=== PATIENT | male | born 1940 | race Caucasian/White ===

== ENCOUNTER → 2016-12-01 | Outpatient (CLI) | payer BC ==
[~2016-12-01] MED LIST: ACET-1138 PO; ACET-1256 PO; ASPEC81 PO; CLB200 PO; DUTA0.5C PO; FLM4 PO; HRBLS PO; LOSA50TA54 PO; NITR-5 PO; ONDA8TAB6 PO; OXYC-57 PO; OXYSR10 PO; PHEN-775 PO; RXC5 PO; SIMV20TA2 PO; [UNRECOGNIZED DRUG - OTHER] PO; [UNRECOGNIZED DRUG - OTHER] PO; [UNRECOGNIZED DRUG - OTHER] PO; antibiotic
[2016-12-01 16:42] LABS: BLOOD UREA NITROGEN 22 mg/dl (7-18); BUN/CREATININE RATIO 30.7 (10-20); CALCIUM 9.3 mg/dl (8.5-10.1); CARBON DIOXIDE 27 mmol/L (21-32); CHLORIDE 107 mmol/L (98-107); CREATININE 0.73 mg/dl (0.60-1.40); GLUCOSE 96 mg/dl (70-99); POTASSIUM 3.8 mmol/L (3.5-5.1); SODIUM 142 mmol/L (136-145)
== END | disposition home or self-care (01) ==
LOC: C.LABBFT 11:36
PROVIDERS: ATTEND Internal Medicine
DX: I10 Essential (primary) hypertension (principal)

== ENCOUNTER 2016-12-04 09:19 | Inpatient (IN) | payer BC, OTHER ==
[2016-10-27 13:02] VITALS: BMI 28.0
--- NOTE | 2016-10-27 13:39 | PAT Medication Instructions ---
Service Date Oct 27, 2016. Current Home Medication List Herbals (Herbals), 1 DOSE PO BLANK Herbals (Herbals), 5 TAB PO HS Simvastatin (Zocor), 20 MG PO HS Tamsulosin HCl (Tamsulosin HCl), 0.4 MG PO BID [Salgesic], 1 TABS PO HS PRN for Pain Medication Instructions For Your Scheduled Surgery - Check with surgeon for instructions: [Salgesic], 1 TABS PO HS PRN for Pain - Hold the following medications 2 weeks prior to surgery: Herbals (Herbals), 1 DOSE PO BLANK Herbals (Herbals), 5 TAB PO HS - Hold the following medications the morning of surgery: Tamsulosin HCl (Tamsulosin HCl), 0.4 MG PO BID - Take the following medications as scheduled the night before surgery: Tamsulosin HCl (Tamsulosin HCl), 0.4 MG PO BID Simvastatin (Zocor), 20 MG PO HS If you have any questions please call us at [phone] (Sia Staton PA-C) or [phone] or [phone]
[2016-10-27 14:22] LABS: BASO % 0.3 %; BASO ABS # 0.03 K/uL (0-0.2); COMPLETE YES; EOS % 3.4 %; HEMATOCRIT 37.8 % (42-52); IG% 0.2 %; LYMPH % 23.6 %; LYMPH ABS # 2.06 K/uL (1.2-3.4); MEAN CELL VOLUME 87.5 fL (80-100); MEAN CORPUSCULAR HEMOGLOBIN 30.1 pg (25-34); MEAN CORPUSCULAR HGB CONC 34.4 g/dl (32-36); MONO % 11.8 %; NEUT % 60.7 %; PLATELET COUNT 253 K/uL (130-400); RED BLOOD COUNT 4.32 M/uL (4.7-6.1); WHITE BLOOD COUNT 8.72 K/uL (4.8-10.8)
[2016-10-27 14:26] LABS: ESTIMATED AVERAGE GLUCOSE 114 mg/dl; HA1C FLAG Normal (Normal)
[2016-10-27 14:39] LABS: PROTHROMBIN TIME (PATIENT) 10.5 SECONDS (9.0-12.0)
--- NOTE | 2016-10-27 15:21 | DIAGNOSTIC IMAGING REPORT ---
TWO VIEW CHEST CLINICAL HISTORY: Preoperative examination. FINDINGS: PA and lateral chest radiographs are compared to study dated 07/12/2014. The heart is mildly enlarged and there is atherosclerotic calcification of the thoracic aorta. The pulmonary vasculature is noncongested. Emphysematous change is suspected. Chronic interstitial thickening is similar to previous. No airspace consolidation or pleural effusion is identified. There is no pneumothorax. The skeletal structures are osteopenic. The bony thorax appears intact. IMPRESSION: Cardiomegaly and suspect emphysema. There is no active disease in the chest. Electronically signed by: Dennis Leiva M.D. 10/27/2016 3:20 PM
[2016-10-27 15:47] LABS: BUN/CREATININE RATIO 36.1 (10-20); CREATININE 0.75 mg/dl (0.60-1.40)
[2016-10-27 20:01] LABS: CALCIUM 9.1 mg/dl (8.5-10.1)
--- NOTE | 2016-12-03 09:28 | HISTORY & PHYSICAL EXAMINATION ---
DATE OF ADMISSION: 12/04/2016 CHIEF COMPLAINT: Right knee pain. HISTORY OF PRESENT ILLNESS: The patient is a 76-year-old gentleman with known osteoarthritis about his right knee. He had a previous left total knee arthroplasty several years ago, which has done very well. He continues to have ongoing pain and disability with the right knee and now desires to proceed with right total knee arthroplasty as well. PAST MEDICAL HISTORY: Anemia, BPH, and hyperlipidemia. PAST SURGICAL HISTORY: Left total knee as above, back surgery, and hernia repair. MEDICATIONS: Include tamsulosin HCL 0.4 mg 2 capsules daily and simvastatin 20 mg at bedtime. ALLERGIES: No known drug allergies. SOCIAL HISTORY AND REVIEW OF SYSTEMS: Noncontributory. PHYSICAL EXAMINATION: GENERAL: Well-nourished and well-developed elderly male, who appears his stated age. HEENT: Normocephalic and atraumatic. Extraocular movements intact. Oropharynx is pink and moist. NECK: Supple without adenopathy. LUNGS: Clear to auscultation bilaterally. HEART: Regular rate and rhythm. ABDOMEN: Soft, nontender, and nondistended. EXTREMITIES: The upper extremities are within normal limits. The right knee has a varus alignment. The left knee is neutrally aligned, status post his previous knee replacement. He complains primarily of medial compartment pain. His range of motion is from 0-120 degrees. X-RAYS: X-rays were reviewed. He has a varus aligned knee. He has [id number] arthritis of the medial compartment with complete loss of the joint space. ASSESSMENT: Right knee degenerative joint disease. PLAN: Risks versus benefits were discussed. Consent was obtained. The patient's primary care physician is Dr. Kearney. We will proceed with right total knee arthroplasty upon preoperative workup and medical clearance.
[~2016-12-04] VITALS: Ht 170.2 cm; Wt 83.3 kg
[2016-12-04] VITALS (8 sets, daily range): BP systolic 113–169; BP diastolic 64–92; PULSE 72–84; TEMP 36.5–36.9; O2SAT 92–98; Ht 170.2 cm; Wt 83.3 kg
[~2016-12-04 09:19] MED LIST changes: -ACET-1138 PO; -ACET-1256 PO; +ACETAMINOPHEN 500 MG TAB PO SCH; -ASPEC81 PO; +BUPIVACAINE 0.25% 30 ML VIAL ONE; +BUPIVACAINE 0.5 % 5 MG/1 ML PF 10ML VIAL ONE; +CEFAZOLIN 2000 MG/60 ML D5W 60 ML IV SCH; -CLB200 PO; +CeleBREX 200 MG CAP PO SCH; +DEXAMETHASONE 4 MG TAB PO SCH; -DUTA0.5C PO; +FAMOTIDINE 20 MG TAB PO SCH; +GABAPENTIN 300 MG CAP PO SCH; +LACTATED RINGER'S 1000ML IV SCH; +LACTATED RINGER'S 500 ML IV SCH; +METOCLOPRAMIDE HCL 10 MG TAB PO SCH; -NITR-5 PO; -ONDA8TAB6 PO; -OXYC-57 PO; -OXYSR10 PO; -PHEN-775 PO; +ROPIVACAINE 5MG/ML 30 ML 150 MG, BUPIVACAINE/EPINEPHR 0.5% MPF 30 ML, KETOROLAC TROMETH... INFIL SCH; -RXC5 PO; -[UNRECOGNIZED DRUG - OTHER] PO; -[UNRECOGNIZED DRUG - OTHER] PO; -antibiotic
[2016-12-04] MEDS ORDERED: FENTANYL CITRATE INJ 50 MCG/1 ML 2 ML VIAL ONE (10:05)
[2016-12-04] MEDS ORDERED: MIDAZOLAM HCL 1 MG/ML 2ML VIAL ONE (10:05)
--- NOTE | 2016-12-04 10:05 | History & Physical Bridge Note ---
H&P Re-Evaluation Bridge Note: I have examined the patient, reviewed the History & Physical and in the interval since the performance of the History & Physical I have noted the following changes of clinical significance: No changes noted
[2016-12-04] MEDS ORDERED: PROPOFOL IV EMULSION 10 MG/ML 20 ML VIAL IV ONE (10:07)
[2016-12-04] MEDS ORDERED: LACTATED RINGER'S 1000ML 1,000 ML IV PRN (10:24)
[2016-12-04] MEDS ORDERED: ONDANSETRON INJ 2 MG/ML 2 ML VIAL IV PRN ×2 (10:30→13:00)
[2016-12-04] MEDS ORDERED: FENTANYL CITRATE INJ 50 MCG/1 ML 2 ML VIAL IV PRN (10:30)
[2016-12-04] MEDS ORDERED: ORTHO JOINT ANESTHETIC ONE (10:35)
[2016-12-04] MEDS: TRANEXAMIC ACID INJ 1,000 MG in SODIUM CHLORIDE 0.9% 100ML 100 ML IV SCH ×2 (10:50→15:46)
[2016-12-04] MEDS ORDERED: POVIDONE-IODINE OP SOLN 30 ML BTL TOP ONE (12:13)
[2016-12-04] MEDS ORDERED: BACITRACIN 50000 UNIT VIAL IR ONE (12:13)
--- NOTE | 2016-12-04 12:16 | [facility] Post Operative Brief Note ---
Immediate Operative Summary Operative Date Dec 04, 2016. Pre-Operative Diagnosis Right knee degenerative joint disease Post-Operative Diagnosis Right knee degenerative joint disease Procedure(s) Performed Right Total Knee Arthroplasty; Cemented Surgeon Dr. Henrry Starr Supervisor Fiber Locking Surgeon(s) Pablo Spears PA-C Estimated Blood Loss 20 mL Findings severe OA Specimens A. Right Knee bone and tissue Disposition Recovery Room / PACU
[2016-12-04] MEDS ORDERED: ZOLPIDEM TARTRATE 5 MG TAB PO PRN (13:00)
[2016-12-04] MEDS ORDERED: DiphenhydrAMINE HCL 50 MG/ML VIAL IV PRN (13:00)
[2016-12-04] MEDS ORDERED: MoRPHine SULFATE 2 MG/ML CARP IV PRN (13:00)
[2016-12-04] MEDS ORDERED: BISACODYL 10 MG SUPP PR PRN (13:00)
[2016-12-04] MEDS ORDERED: MAGNESIUM HYDROXIDE SUSP 30 ML UDC PO PRN (13:00)
[2016-12-04] MEDS ORDERED: ALUMINUM/MAGNESIUM/SIMETH (MAALOX MAX) 30 ML UDC PO PRN (13:00)
--- NOTE | 2016-12-04 13:25 | DIAGNOSTIC IMAGING REPORT ---
TWO VIEWS RIGHT KNEE CLINICAL HISTORY: Postoperative examination. FINDINGS: AP and crosstable lateral portable views of the right knee are obtained. A right knee arthroplasty is in near anatomic alignment. There has been undersurface remodeling of the patella. No acute fracture is seen. There are expected postoperative changes around the knee including skin clips, a surgical drain, soft tissue edema, and subcutaneous gas. IMPRESSION: Expected postoperative changes status post right knee arthroplasty. No acute fracture is seen. Electronically signed by: Dennis Leiva M.D. 12/04/2016 1:23 PM Dictated Date/Time: 12/04/2016 1:23 PM
--- NOTE | 2016-12-04 13:35 | Anesthesiology Progress Note ---
Anesthesia Post Op Note Date & Time Dec 04, 2016 at 13:35 Vital Signs Pain Intensity: 0 Vital Signs Past 12 Hours Date Time Temp Pulse Resp B/P Pulse Ox O2 Delivery O2 Flow Rate FiO2 12/04/16 13:30 68 12 170/86 97 Nasal Cannula 2 12/04/16 13:20 58 12 170/78 97 Nasal Cannula 2 12/04/16 13:10 67 15 160/80 97 Nasal Cannula 2 12/04/16 13:00 64 12 150/78 98 Nasal Cannula 2 12/04/16 12:50 36.7 69 14 120/62 97 Mask 10 12/04/16 09:44 36.6 76 18 169/92 98 Room Air Notes Mental Status: alert / awake / arousable, participated in evaluation Nausea / Vomiting: adequately controlled Pain: adequately controlled Airway Patency, RR, SpO2: stable & adequate BP & HR: stable & adequate Hydration State: stable & adequate Neuraxial Anesthesia: was administered, sensory block is resolving Anesthetic Complications: no major complications apparent
[2016-12-04] MEDS ORDERED: MoRPHine SULFATE 4 MG/ML 1 ML CARP\\VIAL IV PRN (14:15)
[2016-12-04] MEDS ORDERED: MoRPHine SULFATE 10 MG/ML CARP/VIAL IV PRN (14:15)
[2016-12-04] MEDS: D5W AND 1/2NSS + 20MEQ KCL 1,000 ML IV SCH (15:47)
[2016-12-04] MEDS: ACETAMINOPHEN 500 MG TAB PO SCH ×2 (15:48→21:34)
[2016-12-04] MEDS: KETOROLAC TROMETHAMINE 15 MG/ML VIAL IV. SCH ×2 (15:48→21:35)
[2016-12-04] MEDS: FERROUS GLUCONATE 324 MG TAB PO SCH (17:46)
[2016-12-04] MEDS: CEFAZOLIN IV 2,000 MG in DEXTROSE 5% 50ML 50 ML IV SCH (19:06)
[2016-12-04] MEDS: OXYCODONE HCL 10 MG TABCR (OXYCONTIN) PO SCH (21:32)
[2016-12-04] MEDS: SIMVASTATIN 20 MG TAB PO SCH (21:36)
[2016-12-04] MEDS: SENNA 8.6 MG TAB PO SCH (21:36)
[2016-12-04] MEDS: ASPIRIN 81 MG ECTAB PO SCH (21:37)
[2016-12-04] MEDS: TAMSULOSIN HCL 0.4 MG CAP PO SCH (21:37)
[2016-12-04] MEDS: DOCUSATE SODIUM 100 MG CAP PO SCH (21:37)
[2016-12-05] VITALS (9 sets, daily range): BP systolic 133–169; BP diastolic 60–82; PULSE 66–82; TEMP 34–36.7; O2SAT 93–97
[2016-12-05] MEDS: CEFAZOLIN IV 2,000 MG in DEXTROSE 5% 50ML 50 ML IV SCH (02:10)
[2016-12-05] MEDS: D5W AND 1/2NSS + 20MEQ KCL 1,000 ML IV SCH (02:10)
[2016-12-05] MEDS: KETOROLAC TROMETHAMINE 15 MG/ML VIAL IV. SCH ×2 (04:28→09:06)
[2016-12-05] MEDS: LOSARTAN POTASSIUM 50 MG TAB PO SCH (05:00)
[2016-12-05] MEDS: ACETAMINOPHEN 500 MG TAB PO SCH ×3 (05:00→21:35)
[2016-12-05] MEDS: TAMSULOSIN HCL 0.4 MG CAP PO SCH ×2 (05:00→21:34)
[2016-12-05 06:13] LABS: HEMATOCRIT 32.5 % (42-52); MEAN CELL VOLUME 86.4 fL (80-100); MEAN CORPUSCULAR HEMOGLOBIN 29.3 pg (25-34); MEAN CORPUSCULAR HGB CONC 33.8 g/dl (32-36); PLATELET COUNT 233 K/uL (130-400); RED BLOOD COUNT 3.76 M/uL (4.7-6.1); WHITE BLOOD COUNT 15.79 K/uL (4.8-10.8)
[2016-12-05 06:43] LABS: CALCIUM 8.1 mg/dl (8.5-10.1); CREATININE 0.99 mg/dl (0.60-1.40); POTASSIUM 4.2 mmol/L (3.5-5.1)
--- NOTE | 2016-12-05 07:32 | Orthopedic Progress Note ---
Orthopedic Progress Note Date of Service Dec 05, 2016. Subjective Post OP Day: 1 Reports: feeling well Objective N/V intact, dressing C/D/I (Hemovac in place), toes mobile Date Time Temp Pulse Resp B/P Pulse Ox O2 Delivery O2 Flow Rate FiO2 12/05/16 04:30 80 164/82 12/05/16 04:05 36.7 82 18 169/82 93 Room Air 12/05/16 00:05 Room Air 12/04/16 23:47 36.5 78 16 151/78 92 Room Air 12/04/16 19:05 36.6 84 16 122/71 98 Nasal Cannula 2.0 12/04/16 17:47 36.9 77 16 113/64 95 Nasal Cannula 2.0 12/04/16 16:35 36.7 77 16 124/69 98 Nasal Cannula 2.0 12/04/16 15:44 36.8 80 16 119/66 98 Nasal Cannula 2.0 12/04/16 15:15 Nasal Cannula 2.0 12/04/16 15:10 72 16 148/80 97 Nasal Cannula 2.0 12/04/16 14:40 36.6 73 16 156/80 97 Nasal Cannula 2.0 12/04/16 14:40 97 Nasal Cannula 2.0 12/04/16 14:29 37.3 72 16 140/71 96 Nasal Cannula 2 12/04/16 14:15 72 16 140/76 95 Nasal Cannula 2 12/04/16 14:00 36.7 73 20 149/78 97 Nasal Cannula 2 12/04/16 13:45 70 12 156/84 98 Nasal Cannula 2 12/04/16 13:40 37.3 72 16 159/87 98 Nasal Cannula 2 12/04/16 13:30 68 12 170/86 97 Nasal Cannula 2 12/04/16 13:20 58 12 170/78 97 Nasal Cannula 2 12/04/16 13:10 67 15 160/80 97 Nasal Cannula 2 12/04/16 13:00 64 12 150/78 98 Nasal Cannula 2 12/04/16 12:50 36.7 69 14 120/62 97 Mask 10 12/04/16 09:44 36.6 76 18 169/92 98 Room Air Laboratory Results 24 Hours: Test 12/05/16 05:55 Hematocrit 32.5 % Hemoglobin 11.0 g/dL Assessment & Plan Assessment: 76 yo male stable POD #1 s/p right TKA Plan: 1. Med management 2. DVT prophylaxis- ASA, TEDs, SCDs 3. PT/OT 4. D/C planning- home w/ HH
--- NOTE | 2016-12-05 07:52 | Discharge Instructions ---
Discharge Instructions Admission Reason for Admission: Right Knee Osteoarthritis Discharge Discharge Diagnosis / Problem: Right knee arthritis Discharge Goals Goal(s): Decrease discomfort, Improve function Activity Recommendations Activity Limitations: as noted below . Instructions / Follow-Up Instructions / Follow-Up ACTIVITY RECOMMENDATIONS: SELF CARE INSTRUCTIONS AFTER TOTAL KNEE REPLACEMENT A. You may need to continue a physical therapy program after discharge from the hospital. There are several options available to you. Your doctor will assist you in selecting the best one for you. 1. An out-patient facility 2 to 3 times a week for therapy or home therapy. 2. Continue working on all exercises taught to you in the hospital. Your goals should be to increase bending of your knee to 90 degrees and beyond and to fully straighten your knee. B. You may progress at your own pace from walking with a walker or crutches to a cane; then to no assistive devices. C. Make walking a part of your daily routine. Be up as much as comfortable with rest periods throughout the day. Rest with leg elevation is very important. Use the ice wrap frequently for the first 3-4 weeks. D. There are no restrictions on activities. You may ride in a car, shop, participate in director radio news and all social activities. E. Wear the long elastic stockings (WILLIAM hose) 20 hours a day for 2 weeks after surgery. They can be removed several times a day for laundering and for a bath. F. You may shower, no tub baths until cleared by your doctor. SPECIAL CARE INSTRUCTIONS: VERY IMPORTANT TO READ AND REVIEW A. There are a few signs you need to watch for after you are home. Call [facility] if you notice any of the followin. Increased severe knee pain. Some pain is expected especially when you exercise. 2. Increased swelling in your leg or knee; pain or swelling of the calf muscle in either lower leg. 3. Any fluid drainage from the incision. 4. Shortness of breath or chest pain. B. Please call [facility] at if you have any concerns or questions about your operation or recovery. The doctor or his nurse will return your call promptly. C. You must take antibiotics before dental work, bladder, bowel or other surgery. Your doctor will provide you with a permanent care to carry describing this precaution. IMPORTANT: * REMEMBER TO TAKE ASPIRIN, 81 MG, TWICE DAILY FOR 4 WEEKS UNLESS OTHERWISE DIRECTED. THIS IS YOUR BLOOD THINNER. * HIGH RISK PATIENTS MAY BE PRESCRIBED A STRONGER BLOOD THINNER. THIS WILL BE PROVIDED AT DISCHARGE. * CALL IF INCREASED PAIN, REDNESS, DRAINAGE OR FEVER GREATER THAT 101. * WEAR WILLIAM HOSE 20 HOURS PER DAY FOR 2 WEEKS. Silverlon- This is a large adhesive bandage that contains silver ions. This helps your incision heal by fighting off bacteria and protecting it from the outside environment. You are permitted to shower with this dressing. This will remain on your incision for 7 days and then should be removed. Some visible blood or drainage through the dressing window is normal. If there is significant drainage or leaking noted before the 7 days notify your doctor's office immediately. Once removed, keep incision clean and dry. If there is any drainage or redness noted, please call your surgeon. FOLLOW UP VISIT: If appointment is not already scheduled: Please call [facility] to make a follow-up appointment for 2 weeks after your surgery at . Current Hospital Diet Patient's current hospital diet: Regular Diet Discharge Diet Recommended Diet: Regular Diet Procedures Procedures Performed: Right Total Knee Arthroplasty; Cemented Pending Studies Studies pending at discharge: no Laboratory Results Hemoglobin A1c Test 10/27/16 13:48 Range/Units Estimated Average Glucose 114 mg/dl Hemoglobin A1c 5.6 4.5-5.6 % Medical Emergencies . Who to Call and When: Medical Emergencies: If at any time you feel your situation is an emergency, please call 911 immediately. . Non-Emergent Contact Non-Emergency issues call your: Surgeon Call Non-Emergent contact if: temperature is above 101.5, your pain is not controlled, wound has increased drainage, wound has increased redness . "Provider Documentation" section prepared by Rubens Gaona PA-C. VTE Core Measure Inpt VTE Proph given/why not?: Other Anticoagulation (ASA 81mg bid), T.E.D. Stockings, SCD's
[2016-12-05] MEDS: PANTOprazole SOD 40 MG TAB PO SCH (08:24)
[2016-12-05] MEDS: MULTIVITAMIN TAB PO SCH (08:24)
[2016-12-05] MEDS: DOCUSATE SODIUM 100 MG CAP PO SCH ×2 (08:25→21:34)
[2016-12-05] MEDS: ASPIRIN 81 MG ECTAB PO SCH ×2 (08:25→21:34)
[2016-12-05] MEDS: FERROUS GLUCONATE 324 MG TAB PO SCH ×3 (08:25→18:19)
[2016-12-05] MEDS: OXYCODONE HCL 10 MG TABCR (OXYCONTIN) PO SCH ×2 (08:27→21:34)
--- NOTE | 2016-12-05 08:28 | Anesthesiology Progress Note ---
Anesthesia Post Op Note Date & Time Dec 05, 2016 at 08:27 Vital Signs Pain Intensity: 3.0 Vital Signs Past 12 Hours Date Time Temp Pulse Resp B/P Pulse Ox O2 Delivery O2 Flow Rate FiO2 12/05/16 07:54 34.0 80 14 139/70 93 Room Air 12/05/16 07:30 Room Air 12/05/16 04:30 80 164/82 12/05/16 04:05 36.7 82 18 169/82 93 Room Air 12/05/16 00:05 Room Air 12/04/16 23:47 36.5 78 16 151/78 92 Room Air Notes Mental Status: alert / awake / arousable, participated in evaluation Pt Amnestic to Procedure: Yes Nausea / Vomiting: adequately controlled Pain: adequately controlled Airway Patency, RR, SpO2: stable & adequate BP & HR: stable & adequate Hydration State: stable & adequate Neuraxial Anesthesia: was administered, sensory block resolved Anesthetic Complications: no major complications apparent
[2016-12-05] MEDS: OXYCODONE HCL IR 5 MG TAB (IMMEDIATE RELEASE) PO PRN (18:20)
[2016-12-05] MEDS: CeleBREX 200 MG CAP PO SCH (21:34)
[2016-12-05] MEDS: SIMVASTATIN 20 MG TAB PO SCH (22:09)
[2016-12-05] MEDS: SENNA 8.6 MG TAB PO SCH (22:09)
[2016-12-06] MEDS: ACETAMINOPHEN 500 MG TAB PO SCH ×3 (05:30→21:58)
[2016-12-06 07:29] VITALS: BP 150/71; PULSE 78; TEMP 36.7; O2SAT 94
[2016-12-06] MEDS: OXYCODONE HCL 10 MG TABCR (OXYCONTIN) PO SCH ×2 (09:09→21:57)
[2016-12-06] MEDS: PANTOprazole SOD 40 MG TAB PO SCH (09:09)
[2016-12-06] MEDS: LOSARTAN POTASSIUM 50 MG TAB PO SCH (09:09)
[2016-12-06] MEDS: OXYCODONE HCL IR 5 MG TAB (IMMEDIATE RELEASE) PO PRN (09:09)
[2016-12-06] MEDS: MULTIVITAMIN TAB PO SCH (09:09)
[2016-12-06] MEDS: FERROUS GLUCONATE 324 MG TAB PO SCH ×3 (09:10→18:12)
[2016-12-06] MEDS: ASPIRIN 81 MG ECTAB PO SCH ×2 (09:39→21:58)
[2016-12-06] MEDS: DOCUSATE SODIUM 100 MG CAP PO SCH ×2 (09:39→21:57)
[2016-12-06] MEDS: CeleBREX 200 MG CAP PO SCH ×2 (09:39→21:58)
[2016-12-06] MEDS: TAMSULOSIN HCL 0.4 MG CAP PO SCH ×2 (09:40→22:00)
--- NOTE | 2016-12-06 10:45 | Orthopedic Progress Note ---
Orthopedic Progress Note Date of Service Dec 06, 2016. Subjective Post OP Day: 2 Reports: feeling well, Denies: SOB, calf pain, chest pain, complaints, light headedness, nausea / vomiting, pain controlled w PO medications Additional Notes: States he would like to avoid a rehab stay. Would rather go home with home health. States he's ready to go home today. Last evening, he had difficulties with urination and a mar was placed. Objective calves soft nontender, N/V intact, capillary refill less than 2 sec., dressing C /D/I, A&O x3, toes mobile Date Time Temp Pulse Resp B/P Pulse Ox O2 Delivery O2 Flow Rate FiO2 12/06/16 07:29 36.7 78 16 150/71 94 Room Air 12/06/16 07:00 Room Air 12/05/16 23:09 36.6 74 16 135/69 95 Room Air 12/05/16 23:00 Room Air 12/05/16 16:07 36.5 77 17 133/65 97 Room Air 12/05/16 12:15 Room Air 12/05/16 11:37 36.5 66 14 139/60 93 Room Air Assessment & Plan Assessment: 76 yo male stable POD #2 s/p right TKA urinary retention--will remove mar today. Plan: 1. Med management 2. DVT prophylaxis- ASA, TEDs, SCDs 3. PT/OT 4. D/C planning- home w/ HH 5. If patient is able to urinate today without any difficulties, will d/c home today. If retention remains, will consult urology. Inhouse Planning Pain Management: Celebrex, Oxycontin, PO Tylenol, Oxy IR DVT Prophylaxis: TEDs, SCDs, ASA Discharge Planning Discharge Planning: home with home health Pain Management: Celebrex, Oxycontin, PO Tylenol, Oxy IR DVT Prophylaxis: TEDs, ASA
[2016-12-06] MEDS ORDERED: ONDA8TAB6 PO (10:47)
[2016-12-06] MEDS ORDERED: OXYSR10 PO (10:47)
[2016-12-06] MEDS ORDERED: ASPEC81 PO (10:47)
[2016-12-06] MEDS ORDERED: RXC5 PO (10:47)
[2016-12-06] MEDS ORDERED: ACET-1138 PO (10:47)
[2016-12-06] MEDS ORDERED: CLB200 PO (10:47)
[2016-12-06 15:31] VITALS: BP 150/57; PULSE 81; TEMP 36.4; O2SAT 97
[2016-12-06] MEDS: SENNA 8.6 MG TAB PO SCH (21:57)
[2016-12-06] MEDS: SIMVASTATIN 20 MG TAB PO SCH (21:58)
[2016-12-06 23:50] VITALS: BP 170/56; PULSE 77; TEMP 36.7; O2SAT 95
[2016-12-07 02:45] VITALS: BP 144/72
[2016-12-07] MEDS: ACETAMINOPHEN 500 MG TAB PO SCH (05:06)
[2016-12-07 07:19] VITALS: BP 154/69; PULSE 83; TEMP 36.8; O2SAT 95
--- NOTE | 2016-12-07 08:11 | Orthopedic Progress Note ---
Orthopedic Progress Note Date of Service Dec 07, 2016. Subjective Post OP Day: 3 Reports: complaints (Main complaint is inability to urinate.), feeling well, pain controlled w PO medications, Denies: SOB, calf pain, chest pain, light headedness, nausea / vomiting Objective calves soft nontender, N/V intact, capillary refill less than 2 sec., dressing C /D/I, A&O x3, toes mobile Date Time Temp Pulse Resp B/P Pulse Ox O2 Delivery O2 Flow Rate FiO2 12/07/16 07:19 36.8 83 15 154/69 95 Room Air 12/07/16 07:00 Room Air 12/07/16 02:45 16 144/72 12/07/16 00:00 Room Air 12/06/16 23:50 36.7 77 18 170/56 95 Room Air 12/06/16 16:15 Room Air 12/06/16 15:31 36.4 81 17 150/57 97 Room Air Assessment & Plan Assessment: 76 yo male stable POD #3 s/p right TKA urinary retention--urology consulted Plan: 1. Med management 2. DVT prophylaxis- ASA, TEDs, SCDs 3. PT/OT 4. D/C planning- home w/ HH 5. Urology consulted. Patient may need to have another mar placed. If urology feels patient is able to go home with the mar and follow up in a few days, will d/c home. Holding D/C until after urology input. Inhouse Planning Pain Management: Celebrex, Oxycontin, PO Tylenol, Oxy IR DVT Prophylaxis: TEDs, SCDs, ASA Discharge Planning Discharge Planning: home with home health (On hold at this time until urology input.) Pain Management: Celebrex, Oxycontin, PO Tylenol, Oxy IR DVT Prophylaxis: TEDs, ASA
[2016-12-07] MEDS: FERROUS GLUCONATE 324 MG TAB PO SCH ×2 (08:30→12:29)
[2016-12-07] MEDS ORDERED: NURSING DECISION MEDICATION ORDER SCH (08:45)
[2016-12-07] MEDS ORDERED: LIDOCAINE 2% JELLY 5 ML TUBE EXT ONE (09:00)
[2016-12-07] MEDS: TAMSULOSIN HCL 0.4 MG CAP PO SCH (09:15)
[2016-12-07] MEDS: ASPIRIN 81 MG ECTAB PO SCH (09:16)
[2016-12-07] MEDS: DOCUSATE SODIUM 100 MG CAP PO SCH (09:16)
[2016-12-07] MEDS: PANTOprazole SOD 40 MG TAB PO SCH (09:16)
[2016-12-07] MEDS: LOSARTAN POTASSIUM 50 MG TAB PO SCH (09:17)
[2016-12-07] MEDS: MULTIVITAMIN TAB PO SCH (09:17)
[2016-12-07] MEDS: CeleBREX 200 MG CAP PO SCH (09:17)
[2016-12-07] MEDS ORDERED: LIDOCAINE HCL 2% JELLY 30 ML TUBE EXT ONE (09:18)
[2016-12-07] MEDS: OXYCODONE HCL IR 5 MG TAB (IMMEDIATE RELEASE) PO PRN (09:20)
[2016-12-07] MEDS: OXYCODONE HCL 10 MG TABCR (OXYCONTIN) PO SCH (09:21)
--- NOTE | 2016-12-07 10:05 | Urology Consultation ---
History General Date of Service: Dec 07, 2016. Chief Complaint: Urinary retention Primary Care Physician: Dawit Kearney M.D. Pt seen a urologist before?: No History of Present Illness 76 yo male POD#3 s/p R knee arthroplasty with postop urinary retention. Progress notes reviewed, unable to void with bladder volumes routinely above 1 L. Patient notes chronic slow stream, nocturia x 2 and intermittency. He has been noted to have a large prostate by his PMD as is on baseline tamsulosin. He was offered finasteride in the past but declined. A history of gynecomastia is also noted. Outpatient PMD notes and inpatient notes reviewed. PSA has been good in that past, ~2.2 recently. He has required straight cath on several occasions over the past days and as I enter the room a mar is being placed for his persistent inability to void. Urology consultation is requested to assist with the patient's acute care. HPI - Urinary Retention Sx Patient has: + decreasing stream, + mar, + nocturia (x2), + urinary retention , No CIC, No SPT Severity: severe Medications Include: + alpha blockers, + tamsulosin, No finasteride Past History arthritis, BPH, hypertension, other (hyperlipidemia) Past Surgical History: colonoscopy, orthopedic surgery (R knee replacement), spinal surgery, other (hernia repair) Family History Brother with CAP, CVA Social History Hx Tobacco Use In Past Year?: Yes (SNUFF 1 CAN PER 3 DAYS) Smoking: other (chewing) Alcohol: no current use Marital status: Immunizations History of Influenza Vaccine: N/A History of Tetanus Vaccine?: Yes Tetanus Immunization Date: Feb 28, 2006 History of Pneumococcal: No History of Hepatitis B Vaccine: No Allergies Coded Allergies: No Known Allergies (Verified , 12/04/16) Medications Home Medications: Home Meds and Scripts Medications Dose Route/Sig Max Daily Dose Days Date Category Dose Instructions Zofran (Ondansetron HCl) 8 Mg Tab 8 Mg PO Q8 PRN 12/06/16 Rx Celebrex (Celecoxib) 200 Mg Cap 200 Mg PO BID 12/06/16 Rx Oxycodone HCl 5 Mg Tab 5-10 Mg PO Q4H PRN 12/06/16 Rx Oxycontin (Oxycodone HCl) 10 Mg Tabcr 10 Mg PO Q12 12/06/16 Rx Aspirin EC Low Dose (Aspirin) 81 Mg Ectab 81 Mg PO BID 30 12/06/16 Rx Tylenol Extra Strength (Acetaminophen) 500 Mg Tab 1,000 Mg PO Q8@0600,1400,2200 12/06/16 Rx Cozaar (Losartan Potassium) 50 Mg Tab 100 Mg PO DAILY 11/26/16 Reported Herbals (Miscellaneous) Ea 5 Tab PO HS 10/27/16 Reported FOR ENVIRONMENTAL ALLERGIES Herbals (Miscellaneous) Ea 1 Dose PO BLANK 10/27/16 Reported NETTLE ROOT,REHMANIA,GINGKO,E LEUTHRO Tamsulosin HCl 0.4 Mg Cap 0.4 Mg PO BID 10/27/16 Reported [Salgesic] 1 Tabs PO HS PRN 07/12/14 Reported WILLOW BARK-NATURAL ASPIRIN Zocor (Simvastatin) 20 Mg Tab 20 Mg PO HS 07/12/14 Reported Inpatient Medications: Current Inpatient Medications Medications (Trade) Dose Ordered Sig/Angely Route Start Time Stop Time Status Last Admin Dose Admin Losartan Potassium (coZAAR TAB) 100 mg DAILY PO 12/05/16 09:00 01/04/17 08:59 12/07/16 09:17 100 MG Simvastatin (Zocor Tab) 20 mg HS PO 12/04/16 21:00 01/03/17 20:59 12/06/16 21:58 20 MG Tamsulosin HCl (Flomax Cap) 0.4 mg BID PO 12/04/16 21:00 01/03/17 20:59 12/07/16 09:15 0.4 MG Morphine Sulfate (MoRPHine SULFATE INJ) 2 mg Q4HWA PRN IV 12/04/16 13:00 12/18/16 12:59 Celecoxib (CeleBREX CAP) 200 mg BID PO 12/05/16 21:00 01/04/17 20:59 12/07/16 09:17 200 MG Oxycodone HCl (Roxicodone Immediate Rel Tab) 1 TABLET FOR PAIN RATING... Q4H PRN PO 12/04/16 13:00 12/18/16 12:59 12/07/16 09:20 5 MG Oxycodone HCl (Oxycontin Tab) 10 mg Q12 PO 12/04/16 21:00 12/18/16 20:59 12/07/16 09:21 10 MG Acetaminophen (Tylenol Tab) 1,000 mg Q8@0600,1400,2200 PO 12/04/16 15:30 01/03/17 15:29 12/07/16 05:06 1,000 MG Magnesium Hydroxide (Milk Of Magnesia Susp) 30 ml Q6H PRN PO 12/04/16 13:00 01/03/17 12:59 Bisacodyl (Dulcolax Supp) 10 mg DAILY PRN AL 12/04/16 13:00 01/03/17 12:59 Senna (Senokot Tab) 17.2 mg HS PO 12/04/16 21:00 01/03/17 20:59 12/06/16 21:57 17.2 MG Docusate Sodium (coLACE CAP) 100 mg BID PO 12/04/16 21:00 01/03/17 20:59 12/07/16 09:16 100 MG Diphenhydramine HCl (Benadryl Inj) 25 mg Q8H PRN IV 12/04/16 13:00 01/03/17 12:59 Al Hydrox/Mg Hydrox/Simethicone (Maalox Max Susp) 15 ml Q4H PRN PO 12/04/16 13:00 01/03/17 12:59 Zolpidem Tartrate (Ambien Tab) 5 mg HSZ PRN PO 12/04/16 13:00 01/03/17 12:59 Multivitamins (Multivitamin Tab) 1 tab QAM PO 12/05/16 09:00 01/04/17 08:59 12/07/16 09:17 1 TAB Ondansetron HCl (Zofran Inj) 4 mg Q6H PRN IV 12/04/16 13:00 01/03/17 12:59 Ferrous Gluconate (Ferrous Gluconate Tab) 324 mg TIDM PO 12/04/16 17:45 01/03/17 17:59 12/06/16 18:12 324 MG Pantoprazole Sodium (Protonix Tab) 40 mg QAM PO 12/05/16 09:00 01/04/17 08:59 12/07/16 09:16 40 MG Aspirin (Ecotrin Tab) 81 mg BID PO 12/04/16 21:00 01/03/17 20:59 12/07/16 09:16 81 MG Morphine Sulfate (MoRPHine SULFATE INJ) 4 mg Q4HWA PRN IV 12/04/16 14:15 12/18/16 14:14 Morphine Sulfate (MoRPHine SULFATE INJ) 6 mg Q4HWA PRN IV 12/04/16 14:15 12/18/16 14:14 Review of Systems Review of Systems Constitutional: No chills, No fever Eyes: No double vision, No eye pain Neurological: No numbness/tingling, No passing out Endocrine: No too cold, No too hot Gastrointestinal: No nausea, No vomiting Cardiovascular: No angina, No irregular heartbeat Respiratory: No coughing up blood Skin: No boils Musculoskeletal: + arthritis, + joint pain Blood / Lymphatic: No swollen glands Ears / Nose / Throat: No hoarse voice, No sinus Psychologic / Mental: No trouble remembering Male : + see HPI, + urinary retention Physical Exam Vital Signs: Vital Signs Past 12 Hours Date Time Temp Pulse Resp B/P Pulse Ox O2 Delivery O2 Flow Rate FiO2 12/07/16 07:19 36.8 83 15 154/69 95 Room Air 12/07/16 07:00 Room Air 12/07/16 02:45 16 144/72 12/07/16 00:00 Room Air 12/06/16 23:50 36.7 77 18 170/56 95 Room Air Physical Exam: General Appearance: WD/WN, no apparent distress ENT: normal ENT inspection, hearing grossly normal Neck: supple Respiratory/Chest: no respiratory distress, no accessory muscle use Cardiovascular: no JVD Gastrointestinal: Abdomen: normal abdomen Bladder: normal bladder Renal: normal renal Hernia: absent hernia Liver: normal liver Spleen: normal spleen Genitourinary - Male: Penis: normal penis, circumcised Urethral Meatus: normal urethral meatus Scrotum: normal scrotum Neurologic/Psychiatric: alert, oriented x 3 Skin: normal color Assessment & Plan Assessment & Plan A/P 76 yo male with BPH, urinary retention. Findings reviewed with patient. Seen the presence of over a liter in his bladder it is unlikely he will void spontaneously anytime soon. Would leave mar in place for DC home. Mar to leg bag instruction. Will arrange for outpatient follow-up later this week in our office for mar removal and clean intermittent catheterization teaching. Will also add dutasteride to his baseline tamsulosin - Rx sent to the patient's pharmacy. Continue tamsulosin. Will arrange for outpatient follow-up in 2-3 weeks with myself. Will arrange for cystoscopy to evaluate bladder and prostate anatomy. Depending on results to medical therapy will discuss options for his voiding going into the future. Patient vocalizes good understanding of the treatment plan. Thank you for allowing us to participate in this patient's care. Please contact our service with any questions or concerns. Patient stable for DC home with mar in place from a urologic perspective.
[2016-12-07 12:25] VITALS: BP 154/69; PULSE 83; TEMP 36.8; O2SAT 95
--- NOTE | 2016-12-10 15:36 | DISCHARGE SUMMARY ---
DISCHARGE DIAGNOSIS: Degenerative joint disease, right knee. SECONDARY DIAGNOSES: History of anemia, benign prostatic hypertrophy, hyperlipidemia. CONSULTS: None. COMPLICATIONS: None. PROCEDURES: Right total knee arthroplasty performed by Dr. Starr on 12/04/2016. BRIEF HISTORY: As dictated in history and physical. HOSPITAL SUMMARY: The patient was admitted on the above date and had the above-noted surgery performed which he tolerated well. On the first postoperative day, he was feeling well and had no complaints. Neurovascularly intact. Dressings clean, dry and intact. Toes were mobile. Vital signs were stable. He had fluctuating blood pressures ranging from 113 systolic to 169 initially during his first night. Hemoglobin was 11.0 and he was started on physical therapy protocol and continued on DVT prophylaxis and pain management. By his second postoperative day, he was feeling well and had no complaints. He stated that he would rather avoid going to rehab and would like to go home with home health. The previous evening he had some difficulties with urination and a Veronica was placed. Calves were soft and nontender, neurovascularly intact. Dressings were clean, dry and intact. Toes were mobile. Vital signs were stable. BP was starting to have less fluctuations and plans were that if the patient was able to urinate that they would discharge him home that day. The patient continued to have urinary retention and Dr. Shaw was consulted. He was otherwise feeling well and pain was controlled. Calves were soft, nontender, neurovascularly intact. Dressings clean, dry and intact. Toes were mobile and vital signs were essentially stable; however, he continued to fluctuation with his blood pressure off and on. Dr. Shaw saw the patient and plans were to keep the Veronica catheter in place and that he would be seen in the office later that week for the Veronica catheter removal and also for clean intermittent catheterization teaching. They added dutasteride to his baseline tamsulosin prescription and was sent to the pharmacy. He was continued on his Flomax and plans were for followup with Dr. Shaw in 2-3 weeks after the initial Veronica catheter removal. He was otherwise remaining stable. He was progressing with his physical therapy and it was felt he could be discharged to home on 12/07/2016. For further review, please see chart. LAB AND X-RAY DATA: As per chart. DISCHARGE INSTRUCTIONS: The patient was discharged to home in satisfactory condition. DIET: Regular. ACTIVITY: Follow TK instruction sheets and special care instructions as noted and follow up with Dr. Stafford in 2 weeks. The patient to call for appointment if one has not been made for you. Follow up in Dr. Shaw's office later that week from the discharge to have the Veronica catheter removed and undergo intermittent catheter training. DISCHARGE MEDICATIONS: Acetaminophen 1000 mg p.o. q. 8 hours, aspirin 81 mg p.o. b.i.d., Celebrex 200 mg p.o. b.i.d., Zofran 8 mg p.o. q. 8 hours p.r.n., OxyContin 10 mg p.o. q. 12 hours, oxycodone 5-10 mg p.o. q. 4 hours p.r.n., resume taking herbals 1 dose p.o. daily, losartan 100 mg p.o. daily, simvastatin 20 mg p.o. at bedtime, tamsulosin 0.4 mg p.o. b.i.d., and dutasteride as prescribed by Dr. Shaw. [facility]
--- NOTE | 2016-12-26 10:57 | OPERATIVE REPORT ---
DATE OF OPERATION: 12/04/2016 PREOPERATIVE DIAGNOSIS: Osteoarthritis right knee. POSTOPERATIVE DIAGNOSIS: Osteoarthritis right knee. PROCEDURE: Right total knee arthroplasty. SURGEON: Dr. Starr. JAVA MOBILE DEVELOPER: Rubens Gaona PA-C. ANESTHESIA: Spinal. COMPLICATIONS: None. OPERATION AND FINDINGS: Following induction of spinal anesthesia, the patient's right leg was prepped and draped in the usual sterile manner. Limb was exsanguinated with an Esmarch bandage and tourniquet was inflated to 350 mmHg. A longitudinal incision was made anteriorly. Subcutaneous tissue was sharply dissected. Electrocautery was used for hemostasis. Prepatellar bursa was incised and median parapatellar incision was performed. Patella was everted and the knee was flexed. Fat pad was removed to aid in visualization and the anterior and posterior cruciate ligaments were removed. The medial face of the tibia was cleared of soft tissue first with a Bovie and a Das elevator. This tissue was retracted posteriorly using a blunt Hohmann. A Coffey retractor was used to expose the synovium above on the anterior aspect of the femur and this was removed down to bone. The PSI guide was placed on the distal femur and two pins were placed anteriorly and kept in position and two additional pins were placed distally and removed. The distal femoral cutting block was placed in position and the distal femoral cut was used in the +0 setting. Next, the cutting block was removed and the size 6 block was placed in the distal end of the femur. Care was taken to ensure appropriate external rotation and feeler gauge was used to ensure no notching would occur. The femoral block was centered on the distal femur and in the medial and lateral direction and was fixed using two bone screws. The gold pins were then removed. The oscillating saw was used to create the bone cuts and the distal femoral cutting block was removed and the reciprocating saw was used to further trim the femoral cuts as well as a deep in the area for the trochlear groove. Next, posterior condyle remnants were removed. Following this, a meniscal clamp and knife were utilized to remove the anterior portion of both medial and lateral meniscus. The proximal tibia PSI guide was placed into position and the proximal tibial cutting guide was screwed into position. The extra medullary alignment guide was utilized to ensure appropriate alignment. The proximal tibia was cut and the proximal tibial cutting block was removed and this bone fragment was removed. The appropriate guide was used to perform the notch cut on the distal femur and a lamina stripping cutter and winder and a cochlear knife were utilized to finish both medial and lateral meniscectomies to remove any remnants of the posterior or anterior cruciate ligaments. Following this, the distal femoral component was impacted into position and blunt Ramiro was used to sublux the tibia anteriorly. The proximal tibia was sized and a size 5 tibial tray was chosen as the size to be used. This was put into position and appropriate external rotation and a double check with extramedullary alignment guide was performed. The canal for the tibial stem was prepared first with a 17 mm drill and then the punch and a mallet and the trial tibial poly was placed. A size 9 mm was chosen the size to be used. It was brought to extension and the patella was prepared with the patellar reamer. A size 39 component was chosen the size to be used. The trial component was placed and knee was taken through a full range of motion and there was found to be no lateral subluxation of the tibia. No lateral release was required. The trials were all removed. The final components were obtained and assembled. Cement was mixed. The knee was thoroughly irrigated and the ortho mix was injected about the knee joint. The final components were cemented into position. After thoroughly suctioning and drying the bone ends, all excess cement was removed. The knee was held in extension while the cement hardened. The wound was irrigated and closed over a Hemovac drain. #1 Vicryl was used to close the extensor mechanism. Subcutaneous tissues closed using 0 Dexon. Skin was closed with myriam. Sterile dressing of Adaptic, 4 x 4's, sterile Webril, and Rhsy was applied. The patient tolerated the procedure well. Recovery room stable. Due to the complex nature of the procedure, the entire surgery was performed with the operational assistance of Rubens Gaona PA-C. The machine assistant, under direct supervision, was involved in the actual performance of all aspects of the surgical procedure including hemostasis, tissue retraction and incision, instrument management, patient positioning, and wound closure. I attest to the content of the Intraoperative Record and any orders documented therein. Any exceptio ns are noted below.
--- NOTE | 2017-01-02 13:15 | OPERATIVE REPORT ---
DATE OF OPERATION: 12/04/2016 PREOPERATIVE DIAGNOSIS: Osteoarthritis, right knee. POSTOPERATIVE DIAGNOSIS: Osteoarthritis, right knee. PROCEDURE: Right total knee arthroplasty. SURGEON: Dr. Starr. DARKLIGHT INSPECTOR: Pablo Spears PA-C. ANESTHESIA: Spinal. COMPLICATIONS: None. OPERATION AND FINDINGS: Following induction of spinal anesthesia, the patient's right leg was prepped and draped in the usual sterile manner. Limb was exsanguinated with an Esmarch bandage and tourniquet was inflated to 350 mmHg. A longitudinal incision was made anteriorly. Subcutaneous tissue was sharply dissected. Electrocautery was used for hemostasis. Prepatellar bursa was incised and median parapatellar incision was performed. Patella was everted and the knee was flexed. Fat pad was removed to aid in visualization and the anterior and posterior cruciate ligaments were removed. The medial face of the tibia was cleared of soft tissue first with a Bovie and a Das elevator. This tissue was retracted posteriorly using a blunt Hohmann. A Coffey retractor was used to expose the synovium above on the anterior aspect of the femur and this was removed down to bone. The PSI guide was placed on the distal femur and two pins were placed anteriorly and kept in position and two additional pins were placed distally and removed. The distal femoral cutting block was placed in position and the distal femoral cut was used in the +0 setting. Next, the cutting block was removed and the size 6 block was placed in the distal end of the femur. Care was taken to ensure appropriate external rotation and feeler gauge was used to ensure no notching would occur. The femoral block was centered on the distal femur and in the medial and lateral direction and was fixed using two bone screws. The gold pins were then removed. The oscillating saw was used to create the bone cuts and the distal femoral cutting block was removed and the reciprocating saw was used to further trim the femoral cuts as well as a deep in the area for the trochlear groove. Next, posterior condyle remnants were removed. Following this, a meniscal clamp and knife were utilized to remove the anterior portion of both medial and lateral meniscus. The proximal tibia PSI guide was placed into position and the proximal tibial cutting guide was screwed into position. The extra medullary alignment guide was utilized to ensure appropriate alignment. The proximal tibia was cut and the proximal tibial cutting block was removed and this bone fragment was removed. The appropriate guide was used to perform the notch cut on the distal femur and a lamina raimann machine operator and a cochlear knife were utilized to finish both medial and lateral meniscectomies to remove any remnants of the posterior or anterior cruciate ligaments. Following this, the distal femoral component was impacted into position and blunt Hohmann was used to sublux the tibia anteriorly. The proximal tibia was sized and a size 5 tibial tray was chosen as the size to be used. This was put into position and appropriate external rotation and a double check with extramedullary alignment guide was performed. The canal for the tibial stem was prepared first with a 17 mm drill and then the punch and a mallet and the trial tibial poly was placed. A size 9 tibial poly was chosen the size to be used. It was brought to extension and the patella was prepared with the patellar reamer. A size 39 component was chosen the size to be used. The trial component was placed and knee was taken through a full range of motion and there was found to be no lateral subluxation of the tibia. No lateral release was required. The trials were all removed. The final components were obtained and assembled. Cement was mixed. The knee was thoroughly irrigated and the ortho mix was injected about the knee joint. The final components were cemented into position. After thoroughly suctioning and drying the bone ends, all excess cement was removed. The knee was held in extension while the cement hardened. The wound was irrigated and closed over a Hemovac drain. #1 Vicryl was used to close the extensor mechanism. Subcutaneous tissues closed using 0 Dexon. Skin was closed with myriam. Sterile dressing of Adaptic, 4 x 4's, sterile Webril, and Rhys was applied. The patient tolerated the procedure well. Due to the complex nature of the procedure, the entire surgery was performed with the operational assistance of Pablo Spears PA-C. The electrician station assistant, under direct supervision, was involved in the actual performance of all aspects of the surgical procedure including hemostasis, tissue retraction and incision, instrument management, patient positioning, and wound closure. To recovery room stable. I attest to the content of the Intraoperative Record and any orders documented therein. Any exceptio ns are noted below.
[2017-04-02] MEDS ORDERED: ACET-1256 PO (11:05)
[2017-04-02] MEDS ORDERED: DUTA0.5C PO (11:05)
[2017-04-02] MEDS ORDERED: [UNRECOGNIZED DRUG - OTHER] PO (11:07)
[2017-04-02] MEDS ORDERED: [UNRECOGNIZED DRUG - OTHER] PO (11:07)
[2017-04-16] MEDS ORDERED: antibiotic (11:03)
[2017-04-16] MEDS ORDERED: NITR-5 PO (11:14)
[2017-04-16] MEDS ORDERED: PHEN-775 PO (12:58)
[2017-04-16] MEDS ORDERED: OXYC-57 PO (12:58)
== END 2016-12-07 13:39 | disposition home health service (06) | DRG 470 ==
LOC: ENRESERVTM → ENRESERVDT → C.ACU 09:19 → C.3E 10:00
PROC: 0SRC0J9 Replacement of Right Knee Joint with Synthetic Substitute, Cemented, Open Approach (ICD-10-PCS; principal; 2016-12-04 11:30)
DX: M17.11 Unilateral primary osteoarthritis, right knee (principal); M21.161 Varus deformity, not elsewhere classified, right knee; R33.9 Retention of urine, unspecified; N40.1 Benign prostatic hyperplasia with lower urinary tract symptoms; J43.9 Emphysema, unspecified; E78.5 Hyperlipidemia, unspecified; D64.9 Anemia, unspecified; M54.5 Low back pain; G62.9 Polyneuropathy, unspecified; Z96.652 Presence of left artificial knee joint; Z79.899 Other long term (current) drug therapy; Z72.0 Tobacco use; I10 Essential (primary) hypertension

== ENCOUNTER → 2016-12-22 | Outpatient (CLI) | payer BC ==
[~2016-12-22] MED LIST changes: +ACET-1138 PO; +ACET-1256 PO; -ACETAMINOPHEN 500 MG TAB PO SCH; +ASPEC81 PO; -BUPIVACAINE 0.25% 30 ML VIAL ONE; -BUPIVACAINE 0.5 % 5 MG/1 ML PF 10ML VIAL ONE; -CEFAZOLIN 2000 MG/60 ML D5W 60 ML IV SCH; +CLB200 PO; -CeleBREX 200 MG CAP PO SCH; -DEXAMETHASONE 4 MG TAB PO SCH; +DUTA0.5C PO; -FAMOTIDINE 20 MG TAB PO SCH; -GABAPENTIN 300 MG CAP PO SCH; -LACTATED RINGER'S 1000ML IV SCH; -LACTATED RINGER'S 500 ML IV SCH; -METOCLOPRAMIDE HCL 10 MG TAB PO SCH; +NITR-5 PO; +ONDA8TAB6 PO; +OXYC-57 PO; +OXYSR10 PO; +PHEN-775 PO; -ROPIVACAINE 5MG/ML 30 ML 150 MG, BUPIVACAINE/EPINEPHR 0.5% MPF 30 ML, KETOROLAC TROMETH... INFIL SCH; +RXC5 PO; +[UNRECOGNIZED DRUG - OTHER] PO; +[UNRECOGNIZED DRUG - OTHER] PO; +antibiotic
[2016-12-22 17:28] LABS: BASO % 0.3 %; BASO ABS # 0.03 K/uL (0-0.2); COMPLETE YES; EOS % 1.7 %; HEMATOCRIT 29.4 % (42-52); IG% 0.4 %; LYMPH % 19.8 %; LYMPH ABS # 2.22 K/uL (1.2-3.4); MEAN CELL VOLUME 88.3 fL (80-100); MEAN CORPUSCULAR HEMOGLOBIN 29.1 pg (25-34); MEAN PLATELET VOLUME 8.6 fL (7.4-10.4); MONO % 9.6 %; NEUT % 68.2 %; PLATELET COUNT 455 K/uL (130-400); RED BLOOD COUNT 3.33 M/uL (4.7-6.1); WHITE BLOOD COUNT 11.22 K/uL (4.8-10.8)
[2016-12-22 17:51] LABS: ALT/SGPT 41 U/L (12-78); BLOOD UREA NITROGEN 31 mg/dl (7-18); BUN/CREATININE RATIO 30.7 (10-20); CALCIUM 8.5 mg/dl (8.5-10.1); CARBON DIOXIDE 24 mmol/L (21-32); CHLORIDE 108 mmol/L (98-107); CHOLESTEROL 142 mg/dl (0-200); GLUCOSE 85 mg/dl (70-99); POTASSIUM 4.2 mmol/L (3.5-5.1); SODIUM 142 mmol/L (136-145); TRIGLYCERIDES 99 mg/dl (0-150); VERY LOW DENSITY LIPOPROT CALC 20 mg/dl
[2016-12-22 17:55] LABS: ALB/GLOB RATIO 0.9 (0.9-2); ALKALINE PHOSPHATASE 110 U/L (45-117); AST/SGOT 23 U/L (15-37); CHOLESTEROL/HDL RATIO 2.6; HDL CHOLESTEROL 55 mg/dl; LDL CHOLESTEROL CALCULATED 67 mg/dl
== END | disposition home or self-care (01) ==
LOC: C.LABBFT 11:34
PROVIDERS: ATTEND Urology
DX: R31.9 Hematuria, unspecified (principal); Z12.5 Encounter for screening for malignant neoplasm of prostate; E78.5 Hyperlipidemia, unspecified; D64.9 Anemia, unspecified; R82.8 Abnormal findings on cytological and histological examination of urine

== ENCOUNTER → 2017-04-16 | Day surgery (SDC) | payer BC ==
[2017-04-02 11:51] LABS: BASO % 0.3 %; BASO ABS # 0.02 K/uL (0-0.2); COMPLETE YES; EOS % 1.4 %; HEMATOCRIT 35.5 % (42-52); IG% 0.1 %; LYMPH % 25.6 %; LYMPH ABS # 1.85 K/uL (1.2-3.4); MEAN CELL VOLUME 87.4 fL (80-100); MEAN CORPUSCULAR HEMOGLOBIN 28.3 pg (25-34); MEAN CORPUSCULAR HGB CONC 32.4 g/dl (32-36); MEAN PLATELET VOLUME 8.6 fL (7.4-10.4); MONO % 8.2 %; NEUT % 64.4 %; PLATELET COUNT 259 K/uL (130-400); RED BLOOD COUNT 4.06 M/uL (4.7-6.1); WHITE BLOOD COUNT 7.23 K/uL (4.8-10.8)
--- NOTE | 2017-04-02 11:54 | PAT Medication Instructions ---
Service Date April 02, 2017. Current Home Medication List Acetaminophen (Tylenol), 1,000 MG PO BID Dutasteride (Avodart), 0.5 MG PO QAM Losartan Potassium (Cozaar), 100 MG PO QPM Simvastatin (Zocor), 20 MG PO HS Tamsulosin HCl (Tamsulosin HCl), 0.4 MG PO BID [Dust Mold Dander], 5 TAB PO HS [Saligesic], 1 TAB PO HS Medication Instructions For Your Scheduled Surgery - Hold the following medications 10 days prior to surgery: Saligesic 1 TAB PO HS Dust Mold Dander 5 TAB PO HS - Hold the following medications evening prior to surgery: Losartan Potassium (Cozaar), 100 MG PO QPM - Take the following medications the morning of surgery with a sip of water: Tamsulosin HCl (Tamsulosin HCl), 0.4 MG PO BID Dutasteride (Avodart), 0.5 MG PO QAM Acetaminophen (Tylenol), 1,000 MG PO BID (if needed) - Take the following medications as scheduled the night before surgery: Tamsulosin HCl (Tamsulosin HCl), 0.4 MG PO BID Simvastatin (Zocor), 20 MG PO HS Acetaminophen (Tylenol), 1,000 MG PO BID If you have any questions please call us at [phone] or [phone] ( [place]) or [phone]
[2017-04-02 12:17] LABS: URINE APPEARANCE CLEAR (CLEAR); URINE BILIRUBIN NEG (NEG); URINE COLOR YELLOW; URINE NITRITE NEG (NEG); URINE PH 5.5 (4.5-7.5); URINE SPECIFIC GRAVITY 1.021 (1.000-1.030); UROBILINOGEN NEG (NEG)
[2017-04-02 12:42] LABS: MANUAL MICROSCOPIC REQUIRED? NO; REVIEW REQ? NO
[2017-04-02 13:13] LABS: BUN/CREATININE RATIO 34.9 (10-20); CALCIUM 8.8 mg/dl (8.5-10.1); CREATININE 0.72 mg/dl (0.60-1.40); POTASSIUM 3.8 mmol/L (3.5-5.1)
[2017-04-02 13:18] LABS: PROSTATE SPECIFIC ANTIGEN 1.24 ng/ml (0.000-4.000)
[~2017-04-16] VITALS: Ht 170.2 cm; Wt 87.4 kg
[~2017-04-16] MED LIST changes: -ACET-1138 PO; -ASPEC81 PO; +ATROPINE SULFATE 0.1 MG/ML 5ML SYR IV PRN; +BELLADONNA/OPIUM SUPP 60 MG SUPP PR ONE; -CLB200 PO; +EpHEDrine SULFATE 50MG/5ML SYR ONE; +EpHEDrine SULFATE INJ 50 MG/ML AMP IV PRN; +FENTANYL CITRATE INJ 50 MCG/1 ML 2 ML VIAL IV PRN; +FENTANYL CITRATE INJ 50 MCG/1 ML 2 ML VIAL ONE; -HRBLS PO; +HYDROmorphone INJ 1 MG/ML SYR IV PRN; +LABETALOL HCL IV 5 MG/ML 20ML IV PRN; +LACTATED RINGER'S 1000ML 1,000 ML IV SCH; +LEVOFLOXACIN / D5W 500 MG IV SCH; +LIDOCAINE HCL 2% 2 ML VIAL (20MG/ML) ONE; +MEPERIDINE HCL 25 MG/ML CARP IV PRN; -ONDA8TAB6 PO; +ONDANSETRON INJ 2 MG/ML 2 ML VIAL IV PRN; +ONDANSETRON INJ 2 MG/ML 2 ML VIAL ONE; +OXYCODONE/ACETAMINOPHEN 5-325 TAB PO PRN; -OXYSR10 PO; +PHENAZOPYRIDINE HCL 200 MG TAB PO ONE; +PHENAZOPYRIDINE HCL 200 MG TAB PO PRN; +PROPOFOL IV EMULSION 10 MG/ML 20 ML VIAL IV ONE; -RXC5 PO; -[UNRECOGNIZED DRUG - OTHER] PO
[2017-04-16 10:37] VITALS: BP 176/89; PULSE 74; TEMP 36.6; O2SAT 95; Ht 170.2 cm; Wt 87.4 kg
--- NOTE | 2017-04-16 12:58 | Discharge Instructions ---
Discharge Instructions Date of Service April 16, 2017. Admission Reason for Admission: Urine Retention, Benign Prostatic Hypertrophy Discharge Discharge Diagnosis / Problem: BPH s/p TURP Discharge Goals Goal(s): Improve function, Therapeutic intervention Activity Recommendations Activity Limitations: per Instructions/Follow-up section Lifting Limitations: no more than 25 pounds, gradually increase as tolerated ( over 5 days) Exercise/Sports Limitations: rest today, gradually increase as tolerated (over 5 days) May Resume Sexual Activity: after two weeks Shower/Bathe: tomorrow Driving or Machine Use: resume 3 days after discharge . Instructions / Follow-Up Instructions / Follow-Up Veronica to gravity drainage as instructed, blood expected Follow in office as planned for catheter removal and postop check Discharge Diet Recommended Diet: Regular Diet (good fluid intake) Procedures Procedures Performed: TURP, extraction bladder stone Pending Studies Studies pending at discharge: yes List of pending studies: Pathology of TURP specimen Medical Emergencies . Who to Call and When: Medical Emergencies: If at any time you feel your situation is an emergency, please call 911 immediately. . Non-Emergent Contact Non-Emergency issues call your: Urologist Call Non-Emergent contact if: you have a fever, temperature is above 101, your pain is not controlled, your pain is worsening, your pain is unusual for you, your pain is concerning you, wound has increased drainage, wound has increased redness, you have any medication questions . . "Provider Documentation" section prepared by Telly Shaw. . VTE Core Measure Inpt VTE Proph given/why not?: SCD's [place] Drug Monitoring Program Search Results: patient reviewed within database, see additional documentation (Last Rx for narcotics Nov 2016 from ortho, provided for postop pain)
--- NOTE | 2017-04-16 13:00 | [facility] Post Operative Brief Note ---
Immediate Operative Summary Operative Date April 16, 2017. Pre-Operative Diagnosis Benign Prostatic Hypertrophy, Urinary Retention Post-Operative Diagnosis Benign Prostatic Hypertrophy, Urinary Retention, Bladder Stone Procedure(s) Performed Bipolar TURP and button vaporization of prostate, extraction bladder stone Surgeon Dr. Barb Shaw Occupational Work Experience Teacher Surgeon(s) None Estimated Blood Loss 20 ML Findings Open fossa after completion with excellent hemostasis Specimens A.Prostate Chips B. Bladder Stone Drains 24 fr 15 cc H2O Anesthesia GALMA Complication(s) None Disposition Recovery Room / PACU
--- NOTE | 2017-04-16 13:36 | Anesthesiology Progress Note ---
Anesthesia Post Op Note Date & Time April 16, 2017 at 13:36 Vital Signs Pain Intensity: 0 Vital Signs Past 12 Hours Date Time Temp Pulse Resp B/P Pulse Ox O2 Delivery O2 Flow Rate FiO2 04/16/17 13:30 73 16 165/86 95 Room Air 04/16/17 13:20 72 16 159/82 96 Room Air 04/16/17 13:10 73 16 159/82 100 Mask 10 04/16/17 13:00 74 16 162/83 100 Mask 10 04/16/17 12:53 36.1 76 16 156/79 100 Mask 10 04/16/17 10:37 36.6 74 16 176/89 95 Room Air Notes Mental Status: alert / awake / arousable, participated in evaluation Pt Amnestic to Procedure: Yes Nausea / Vomiting: adequately controlled Pain: adequately controlled Airway Patency, RR, SpO2: stable & adequate BP & HR: stable & adequate Hydration State: stable & adequate Anesthetic Complications: no major complications apparent
[2017-04-16 13:40] VITALS: BP 183/83; PULSE 68; TEMP 35.9; O2SAT 95
[2017-04-16 14:10] VITALS: BP 168/80; PULSE 66; O2SAT 95
--- NOTE | 2017-04-16 14:12 | OPERATIVE REPORT ---
DATE OF OPERATION: 04/16/2017 PREOPERATIVE DIAGNOSIS: Benign prostatic hypertrophy with urinary retention. POSTOPERATIVE DIAGNOSIS: Same, bladder stone. PROCEDURE: Cystoscopy, extraction of bladder stone, bipolar transurethral resection of the prostate and button vaporization of the prostate. SURGEON: Dr. Telly Shaw. PROTECTIVE SIGNAL REPAIRER HELPER: None. ANESTHESIA: General anesthesia with laryngeal mask. COMPLICATIONS: None. ESTIMATED BLOOD LOSS: 20 mL. FINDINGS: Open prostatic fossa after completion of case with excellent hemostasis. DRAINS LEFT IN PLACE: Include a 24-Swedish Veronica catheter with 15 mL of sterile water in the balloon. SPECIMENS SENT TO PATHOLOGY: Bladder stone, prostate chips for pathologic analysis. COMPLICATIONS: None. BRIEF HISTORY: Mr. Chavez is a pleasant 77-year-old male who I have seen as an outpatient who has been on maximum medical therapy for voiding issues. He has been found to have a large prostate with intravesical median lobe and lateral lobe hypertrophy on cystoscopic examination. He remains dependent on daily CIC for complete bladder emptying. Seeing his failure to response to medical therapy and his continued need for CIC he has decided upon a transurethral resection of his prostate to manage his disease. Please see H\T\P for further details. He has been on a course of Macrobid prior to surgery for a positive urine culture. SCDs used for DVT prophylaxis and intravenous antibiotics provided for preoperative prophylaxis. PROCEDURE: The patient was properly identified and brought to the operative suite. After identification and appropriate consent on the chart, general anesthesia with laryngeal mask was initiated and the patient was prepped and draped in standard fashion for this procedure. machine oiler-out procedure was followed. A 24-Swedish rigid resectoscope was passed into the bladder under direct visualization using a visual obturator. Significant lateral lobe hypertrophy and a large median lobe were both appreciated consistent with office findings. The ureteral orifices were visualized and noted to be adequately removed from the median lobe for resection. Within the bladder, an approximately 1-1.5 cm bladder stone was identified. This was grasped using alligator forceps, crushed partially and removed. This was sent for pathologic analysis. The scope was returned to the bladder using a visual obturator and a bipolar loop was used after adequate bladder distention to shave the median lobe down until flush with the trigone. Great care was taken to avoid any injury to the ureteral orifices, which were noted to be intact throughout and at the end of the case. After the median lobe and central zone of the prostate were shaved flush with the trigone the intravesical copious prostate chips were irrigated free. Hemostasis was obtained as necessary using the loop for cautery. After the bladder was assured to be free of any pieces of prostatic adenoma with no further tissue being present the loop was switched for a bipolar button and the lateral lobes were vaporized until visually unobstructed. Apical sparing of the prostate was performed and no dissection was taken downstream from the verumontanum. Cautery was used as necessary throughout the case for bleeding vessels. After adequate vaporization had taken place an unobstructed prostatic urethra with excellent hemostasis was appreciated. Bladder was again checked and noted to be free of injuries, tissue and with the ureteral orifices noted to be intact. After this was complete, the bladder was partially distended and resectoscope was removed. A 24-Swedish Veronica catheter was placed without the need for a catheter guide with return of clear fluid. Fifteen mL of sterile water were placed within the balloon and catheter was placed to gravity drainage. This was irrigated with a Gil syringe with isovolumic return. Catheter was placed to gravity drainage and a belladonna and opium suppository was provided for additional postoperative analgesia. Anesthesia was reversed. The patient was transferred to recovery room in stable condition. FOLLOW-UP CARE: The patient is to be discharged home today with a Veronica catheter in place. Outpatient trial of void and postoperative visit is scheduled. He is to complete his nitrofurantoin as previously provided and is provided with Percocet and Pyridium for postoperative analgesia. He is instructed to contact our service should he note any fevers, chills, nausea, vomiting or other significant difficulties in the postoperative period. I attest to the content of the Intraoperative Record and any orders documented therein. Any exceptions are noted below. RYAN
[2017-04-16 14:40] VITALS: BP 160/74; PULSE 65; TEMP 36.2; O2SAT 96
== END | disposition home or self-care (01) ==
LOC: C.ACU 10:08
PROVIDERS: ATTEND Urology
DX: N40.1 Benign prostatic hyperplasia with lower urinary tract symptoms (principal); R33.8 Other retention of urine; N21.0 Calculus in bladder; I10 Essential (primary) hypertension; E78.5 Hyperlipidemia, unspecified; D64.9 Anemia, unspecified; Z79.899 Other long term (current) drug therapy

== ENCOUNTER → 2017-07-20 | Outpatient (CLI) | payer BC ==
[~2017-07-20] MED LIST changes: -ATROPINE SULFATE 0.1 MG/ML 5ML SYR IV PRN; -BELLADONNA/OPIUM SUPP 60 MG SUPP PR ONE; -EpHEDrine SULFATE 50MG/5ML SYR ONE; -EpHEDrine SULFATE INJ 50 MG/ML AMP IV PRN; -FENTANYL CITRATE INJ 50 MCG/1 ML 2 ML VIAL IV PRN; -FENTANYL CITRATE INJ 50 MCG/1 ML 2 ML VIAL ONE; -HYDROmorphone INJ 1 MG/ML SYR IV PRN; -LABETALOL HCL IV 5 MG/ML 20ML IV PRN; -LACTATED RINGER'S 1000ML 1,000 ML IV SCH; -LEVOFLOXACIN / D5W 500 MG IV SCH; -LIDOCAINE HCL 2% 2 ML VIAL (20MG/ML) ONE; -MEPERIDINE HCL 25 MG/ML CARP IV PRN; -ONDANSETRON INJ 2 MG/ML 2 ML VIAL IV PRN; -ONDANSETRON INJ 2 MG/ML 2 ML VIAL ONE; -OXYCODONE/ACETAMINOPHEN 5-325 TAB PO PRN; -PHEN-775 PO; -PHENAZOPYRIDINE HCL 200 MG TAB PO ONE; -PHENAZOPYRIDINE HCL 200 MG TAB PO PRN; -PROPOFOL IV EMULSION 10 MG/ML 20 ML VIAL IV ONE
[2017-07-20 12:25] LABS: ALT/SGPT 23 U/L (12-78); AST/SGOT 16 U/L (15-37); BLOOD UREA NITROGEN 24 mg/dl (7-18); BUN/CREATININE RATIO 28.4 (10-20); CALCIUM 8.9 mg/dl (8.5-10.1); CARBON DIOXIDE 28 mmol/L (21-32); CHLORIDE 110 mmol/L (98-107); CREATININE 0.83 mg/dl (0.60-1.40); GLUCOSE 73 mg/dl (70-99); POTASSIUM 4.2 mmol/L (3.5-5.1); SODIUM 142 mmol/L (136-145)
[2017-07-20 12:27] LABS: ALB/GLOB RATIO 1.1 (0.9-2); ALKALINE PHOSPHATASE 96 U/L (45-117); CHOLESTEROL 161 mg/dl (0-200); CHOLESTEROL/HDL RATIO 2.8; HDL CHOLESTEROL 58 mg/dl; LDL CHOLESTEROL CALCULATED 85 mg/dl; TRIGLYCERIDES 88 mg/dl (0-150); VERY LOW DENSITY LIPOPROT CALC 18 mg/dl
[2017-07-20 12:36] LABS: BASO % 0.4 %; BASO ABS # 0.03 K/uL (0-0.2); COMPLETE YES; HEMATOCRIT 37.3 % (42-52); IG% 0.2 %; LYMPH % 25.7 %; MEAN CELL VOLUME 90.5 fL (80-100); MEAN CORPUSCULAR HEMOGLOBIN 29.9 pg (25-34); MEAN PLATELET VOLUME 8.9 fL (7.4-10.4); MONO % 8.2 %; NEUT % 63.5 %; PLATELET COUNT 251 K/uL (130-400); RED BLOOD COUNT 4.12 M/uL (4.7-6.1); WHITE BLOOD COUNT 8.16 K/uL (4.8-10.8)
== END | disposition home or self-care (01) ==
LOC: C.LABBFT 10:38
PROVIDERS: ATTEND Internal Medicine
DX: D64.9 Anemia, unspecified (principal); E78.5 Hyperlipidemia, unspecified

== ENCOUNTER → 2018-01-21 | Outpatient (CLI) | payer BC ==
[~2018-01-21] MED LIST changes: -OXYC-57 PO
[2018-01-21 12:27] LABS: BASO % 0.4 %; BASO ABS # 0.03 K/uL (0-0.2); EOS % 1.5 %; EOS ABS # 0.13 K/uL (0-0.5); HEMATOCRIT 36.8 % (42-52); HEMOGLOBIN 12.5 g/dL (14.0-18.0); IG# 0.01 K/uL (0.00-0.02); LYMPH % 27.7 %; LYMPH ABS # 2.33 K/uL (1.2-3.4); MEAN CELL VOLUME 88.2 fL (80-100); MEAN PLATELET VOLUME 8.7 fL (7.4-10.4); MONO % 9.4 %; MONO ABS # 0.79 K/uL (0.11-0.59); NEUT % 60.9 %; NEUT ABS # 5.13 K/uL (1.4-6.5); PLATELET COUNT 257 K/uL (130-400); RED CELL DISTRIBUTION WIDTH CV 14.5 % (11.5-14.5); WHITE BLOOD COUNT 8.42 K/uL (4.8-10.8)
[2018-01-21 12:54] LABS: ALBUMIN 3.8 gm/dl (3.4-5.0); ALT/SGPT 64 U/L (12-78); AST/SGOT 28 U/L (15-37); BLOOD UREA NITROGEN 27 mg/dl (7-18); CALCIUM 9.3 mg/dl (8.5-10.1); CARBON DIOXIDE 28 mmol/L (21-32); CHOLESTEROL 179 mg/dl (0-200); CREATININE 0.74 mg/dl (0.60-1.40); GLUCOSE 79 mg/dl (70-99); POTASSIUM 4.2 mmol/L (3.5-5.1); SODIUM 140 mmol/L (136-145)
[2018-01-21 12:57] LABS: ALKALINE PHOSPHATASE 86 U/L (45-117); LDL CHOLESTEROL CALCULATED 98 mg/dl; TOTAL PROTEIN 7.1 gm/dl (6.4-8.2)
== END | disposition home or self-care (01) ==
LOC: C.LABBFT 10:28
PROVIDERS: ATTEND Internal Medicine
DX: D64.9 Anemia, unspecified (principal); E78.5 Hyperlipidemia, unspecified

== ENCOUNTER → 2018-07-13 | Outpatient (CLI) | payer BC ==
--- NOTE | 2018-07-13 12:59 | DIAGNOSTIC IMAGING REPORT ---
ANKLE BRACHIAL INDEX COMPLETE CLINICAL HISTORY: 78 years-old Male presenting with NON HEALING ULCER DIMINISHING PULSES. TECHNIQUE: Ankle brachial indices were obtained. COMPARISON: None. FINDINGS: Brachial: Right: 153 mmHg. Left: 166 mmHg. Ankle (posterior tibial): Right: 152 mmHg. Left: 149 mmHg. Ankle (dorsalis pedis): Right: 182 mmHg. Left: 161 mmHg. Ankle/brachial index: Right: 0.92-1.10, Left: 0.90-0.97. Reference ranges: Normal JAISON 1.0-1.4; 0.9-0.99 borderline; less than 0.9 abnormal. IMPRESSION: Borderline normal bilateral ankle-brachial indices. Electronically signed by: Luca Tan M.D. 07/13/2018 12:57 PM Dictated Date/Time: 07/13/2018 12:56 PM
== END | disposition home or self-care (01) ==
LOC: C.ULTR 11:34
PROVIDERS: ATTEND Podiatrist Foot & Ankle Surgery
DX: L97.521 Non-pressure chronic ulcer of other part of left foot limited to breakdown of skin (principal)

== ENCOUNTER 2021-09-19 22:25 | Observation (INO) ==
--- NOTE | 2021-09-19 22:40 | Emergency Department Note ---
Impression & Plan Syncope, Hypoxia, Weakness, Dizziness ED Provider Note NAME: SHERRY WHITE AGE: 81 SEX: M : 1940 ARRIVES VIA: Ambulance INFORMANT: Patient, EMS ED PROVIDER(S): Carlos Manuel Thapa DO CHIEF COMPLAINT: Syncope HPI: The patient is an 81-year-old male who presented to the emergency department by ambulance for an evaluation of syncope. The patient also was found to be hypoxic. He admits he has been having shortness of breath. He did have a fall few days ago and has a small abrasion to his head. There is no active bleeding noted. The patient denies having any neck pain or chest pain. He does describe dry cough. He also notices swelling in his legs. He denies having any black or bloody bowel movements. He arrived via ambulance. He was found to have an oxygen saturation that was in the high 80s. The patient arriv ed via ambulance after his significant other called 911. The patient denies having any fever. He denies having any back pain. He had no decreased urine output. ROS: See above HPI for pertinent positives & negatives. A total of 10 systems reviewed and were otherwise negative. PAST MEDICAL HISTORY: See Below PAST SURGICAL HISTORY: See Below FAMILY HISTORY: See Below SOCIAL HISTORY: See Below HOME MEDICATIONS: See Below ALLERGIES: See Below VITALS: See Below PHYSICAL EXAMINATION: GENERAL: The patient is awake and alert. He is nonanxious appearing. EYES: The conjunctivae are clear. The pupils are round and reactive. EARS, NOSE, MOUTH AND THROAT: The nose is without any evidence of any deformity. NECK: The neck is nontender and supple. RESPIRATORY: Diminished breath sounds are noted throughout. There is no tachypnea or conversational dyspnea. CARDIOVASCULAR: Regular rate and rhythm noted there no murmurs rubs or gallops normal S1 normal S2. GASTROINTESTINAL: The abdomen is soft. Abdomen is nontender. MUSCULOSKELETAL/EXTREMITIES: There is no evidence of gross deformity full range of motion is noted in the hips and shoulders. SKIN: Skin was cool and dry. Pedal edema was noted bilaterally. NEUROLOGIC: Patient is awake alert and oriented x3. MEDICAL DECISION MAKING: The patient is an 81-year-old male who presented to the emergency department for an evaluation after having a syncopal episode. The patient significant other called 911. The patient arrived via ambulance. Reportedly the patient had hyp oxia prior to arrival. He was placed on supplemental oxygen. His significant other states that he has been having problems with dizziness and weakness ever since he got the third Covid vaccine. He had an episode tonight where he became very dizzy and diaphoretic and then passed out. The patient at this time denies having any chest pain. He denies having any difficulty breathing at rest but do es have significant difficulty breathing with any exertion. The patient was comfortable appearing. I discussed the patient's laboratory and radiographic studies with him. He was found to have an elevated lactic acid level. Cultures were obtained. Given the patient's hypoxia CT of the chest was also obtained which did not appear to be consistent with pulmonary embolism. [facility] Nursing notes reviewed. Prior medical records reviewed Vital Signs: reviewed and remarkable for hypoxia and elevated blood pressure. Differential diagnosis: Vasovagal event, dehydration, infection, hypoglycemia, electrolyte abnormalities, cardiac sources, intracerebral event, pulmonary embolism, seizure, toxicologic, neurologic, as well as other pathologies. ER treatment provided: See below Diagnostics interpreted by me: ECG: EKG was obtained in the emergency department. My interpretation is sinus rhythm at 83 bpm. PVCs were noted. There is no acute ST segment abnormalities noted. This was compared to a tracing from August 252017. The ectopy is new otherwise no acute disease. Cardiac Monitoring: An order was placed for continuous cardiac monitoring. The monitor shows a rate of 78 bpm with sinus rhythm. Laboratory studies: As stated above and show below. Imaging studies: See below Consultation(s): Dr. Carey was notified about the patient. He was on-call for the [facility] hospitalist group. They will evaluate the patient in the emergency department. 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 Tubular adenoma of colon Surgical History H/O inguinal hernia repair H/O laminectomy H/O total knee replacement Hx of transurethral resection of prostate Family History Brother Schizophrenia Prostate cancer Stroke Other No pertinent family history Social History Smoking Status: Unknown if ever smoked Age Started Using Tobacco: 13; Second Hand Exposure: No; Hx Alcohol Use: No Hx Substance Use: No Preferred Language: Montenegrin Communication Ability: Effective Distribution Manager Required: No marital status: Current Living Situation: Spouse current occupational status: employed 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 Feels Safe at Home: Yes Seatbelt Use: always Sunscreen Use: No Assistive Devices: Cane and Walker Allergies Allergies Allergy/AdvReac Type Severity Reaction Status Date / Time No Known Allergies Allergy Verified 09/19/21 23:22 Home Meds Home Medications Medication Instructions Recorded Confirmed Prune-Lax 2 tabs PO HS 09/19/21 09/19/21 gabapentin 100 mg capsule 100 mg PO BID 09/19/21 09/19/21 Previous Rx's Medication Instructions Recorded Wheelchair (Manual) #1 ea NS 07/10/20 alfuzosin 10 mg tablet,extended 10 mg PO DAILY #90 tab 04/02/21 release 24 hr (Uroxatral) simvastatin 20 mg tablet 20 mg PO HS #90 tab 05/23/21 losartan 100 mg tablet 100 mg PO DAILY #30 tab 09/18/21 dutasteride 0.5 mg capsule 0.5 mg PO DAILY #90 cap 09/19/21 nystatin 100,000 unit/gram topical 1 applic TOPICAL BID PRN #30 g 09/19/21 cream Results & Data (ED) Vital Signs Vital Signs - 24 hr 09/19/21 23:11 09/19/21 23:15 09/20/21 00:18 Temperature 36.4 C L Temperature Source Oral Pulse Rate 88 86 Pulse Rate [Finger] 75 Respiratory Effort / Characteristics Non-Labored Non-Labored Blood Pressure 106/60 Blood Pressure [Right Arm] 123/79 Blood Pressure Mean 75 Blood Pressure Mean [Right Arm] 93 Blood Pressure Position [Right Arm] Pulse Oximetry 90 92 96 Oxygen Delivery Method Nasal Cannula Nasal Cannula Nasal Cannula Oxygen Flow Rate 2 2 2 Sepsis Recent Fever Within 48 Hours No Sepsis New/Unexplained Change in Mental Status N/A Sepsis Action Taken by Nursing No Action Required 09/20/21 00:36 Temperature Temperature Source Pulse Rate Pulse Rate [Finger] 78 Respiratory Effort / Characteristics Non-Labored Blood Pressure Blood Pressure [Right Arm] 144/87 H Blood Pressure Mean Blood Pressure Mean [Right Arm] 106 Blood Pressure Position [Right Arm] Lying Pulse Oximetry 93 Oxygen Delivery Method Nasal Cannula Oxygen Flow Rate 2 Sepsis Recent Fever Within 48 Hours Sepsis New/Unexplained Change in Mental Status Sepsis Action Taken by Detention Medications Current Medication List: was personally reviewed by me Laboratory Data Attestation: I reviewed the patient's lab results. Result diagrams: 09/19/21 22:04 09/19/21 22:04 Lab Results 09/19/21 09/19/21 09/19/21 Range/Units 22:04 22:04 22:04 WBC 10.54 (4.8-10.8) K/uL RBC 4.47 L (4.7-6.1) M/uL Hgb 13.2 L (14.0-18.0) g/dL Hct 39.2 L (42-52) % MCV 87.7 (80-100) fL MCH 29.5 (25-34) pg MCHC 33.7 (32-36) g/dL RDW Std Deviation 47.8 H (36.4-46.3) fL RDW Coeff of Costa 14.7 H (11.5-14.5) % Plt Count 235 (130-400) K/uL MPV 9.3 (7.4-10.4) fL Immature Gran % (Auto) 0.2 % Neut % (Auto) 51.5 % Lymph % (Auto) 32.8 % Pitt % (Auto) 11.8 % Eos % (Auto) 3.4 % Baso % (Auto) 0.3 % Neut # (Auto) 5.43 (1.4-6.5) K/uL Lymph # (Auto) 3.46 H (1.2-3.4) K/uL Pitt # (Auto) 1.24 H (0.11-0.59) K/uL Eos # (Auto) 0.36 (0-0.5) K/uL Baso # (Auto) 0.03 (0-0.2) K/uL Immature Gran # (Auto) 0.02 (0.00-0.02) K/uL PT (9.0-12.0) Seconds INR (0.9-1.1) APTT (21.0-31.0) Seconds PTT Ratio D-Dimer (0-500) ug/L FEU VBG pH (7.36-7.41) VBG pCO2 (38-50) mmHg VBG pO2 mmHg VBG HCO3 mmol/L VBG O2 Saturation % VBG Base Excess mEq/L Barometric Pressure mm/Hg Sodium 140 (136-145) mmol/L Potassium 3.5 (3.5-5.1) mmol/L Chloride 110 H (98-107) mmol/L Carbon Dioxide 20 L (21-32) mmol/L Anion Gap 10.0 (3-11) BUN 21 H (7-18) mg/dl Creatinine 1.32 (0.6-1.4) mg/dl Est Cr Clr Drug Dosing 46.9 ml/min Est GFR ( Amer) 57.4 ml/min Est GFR (Non-Af Amer) 49.5 ml/min BUN/Creatinine Ratio 15.8 (10-20) Glucose 158 H (70-99) mg/dl Lactate (0.4-2.0) mmol/L Calcium 9.0 (8.5-10.1) mg/dl Magnesium 2.4 (1.8-2.4) mg/dl Total Bilirubin 0.5 (0.2-1) mg/dl AST 35 (15-37) U/L ALT 60 (12-78) U/L Alkaline Phosphatase 115 (45-117) U/L Troponin I < 0.015 (0-0.045) ng/ml Total Protein 7.2 (6.4-8.2) gm/dl Albumin 3.6 (3.4-5.0) gm/dl Globulin 3.6 (2.5-4.0) gm/dl Albumin/Globulin Ratio 1.0 (0.9-2) Procalcitonin < 0.05 (0-0.5) ng/ml COVID-19 Eval Order SARS-CoV-2 (PCR) (Negative) 09/19/21 09/19/21 09/19/21 Range/Units 22:54 22:54 22:54 WBC (4.8-10.8) K/uL RBC (4.7-6.1) M/uL Hgb (14.0-18.0) g/dL Hct (42-52) % MCV (80-100) fL MCH (25-34) pg MCHC (32-36) g/dL RDW Std Deviation (36.4-46.3) fL RDW Coeff of Costa (11.5-14.5) % Plt Count (130-400) K/uL MPV (7.4-10.4) fL Immature Gran % (Auto) % Neut % (Auto) % Lymph % (Auto) % Pitt % (Auto) % Eos % (Auto) % Baso % (Auto) % Neut # (Auto) (1.4-6.5) K/uL Lymph # (Auto) (1.2-3.4) K/uL Pitt # (Auto) (0.11-0.59) K/uL Eos # (Auto) (0-0.5) K/uL Baso # (Auto) (0-0.2) K/uL Immature Gran # (Auto) (0.00-0.02) K/uL PT 10.7 (9.0-12.0) Seconds INR 1.1 (0.9-1.1) APTT 20.3 L (21.0-31.0) Seconds PTT Ratio 0.8 D-Dimer 2760 H* (0-500) ug/L FEU VBG pH 7.40 (7.36-7.41) VBG pCO2 36 L (38-50) mmHg VBG pO2 34 mmHg VBG HCO3 22 mmol/L VBG O2 Saturation 62.6 % VBG Base Excess -2.7 mEq/L Barometric Pressure 727.7 mm/Hg Sodium (136-145) mmol/L Potassium (3.5-5.1) mmol/L Chloride (98-107) mmol/L Carbon Dioxide (21-32) mmol/L Anion Gap (3-11) BUN (7-18) mg/dl Creatinine (0.6-1.4) mg/dl Est Cr Clr Drug Dosing ml/min Est GFR ( Amer) ml/min Est GFR (Non-Af Amer) ml/min BUN/Creatinine Ratio (10-20) Glucose (70-99) mg/dl Lactate 3.0 H* (0.4-2.0) mmol/L Calcium (8.5-10.1) mg/dl Magnesium (1.8-2.4) mg/dl Total Bilirubin (0.2-1) mg/dl AST (15-37) U/L ALT (12-78) U/L Alkaline Phosphatase (45-117) U/L Troponin I (0-0.045) ng/ml Total Protein (6.4-8.2) gm/dl Albumin (3.4-5.0) gm/dl Globulin (2.5-4.0) gm/dl Albumin/Globulin Ratio (0.9-2) Procalcitonin (0-0.5) ng/ml COVID-19 Eval Order SARS-CoV-2 (PCR) (Negative) 09/19/21 09/19/21 09/20/21 Range/Units 23:08 23:08 00:35 WBC (4.8-10.8) K/uL RBC (4.7-6.1) M/uL Hgb (14.0-18.0) g/dL Hct (42-52) % MCV (80-100) fL MCH (25-34) pg MCHC (32-36) g/dL RDW Std Deviation (36.4-46.3) fL RDW Coeff of Costa (11.5-14.5) % Plt Count (130-400) K/uL MPV (7.4-10.4) fL Immature Gran % (Auto) % Neut % (Auto) % Lymph % (Auto) % Pitt % (Auto) % Eos % (Auto) % Baso % (Auto) % Neut # (Auto) (1.4-6.5) K/uL Lymph # (Auto) (1.2-3.4) K/uL Pitt # (Auto) (0.11-0.59) K/uL Eos # (Auto) (0-0.5) K/uL Baso # (Auto) (0-0.2) K/uL Immature Gran # (Auto) (0.00-0.02) K/uL PT (9.0-12.0) Seconds INR (0.9-1.1) APTT (21.0-31.0) Seconds PTT Ratio D-Dimer (0-500) ug/L FEU VBG pH (7.36-7.41) VBG pCO2 (38-50) mmHg VBG pO2 mmHg VBG HCO3 mmol/L VBG O2 Saturation % VBG Base Excess mEq/L Barometric Pressure mm/Hg Sodium (136-145) mmol/L Potassium (3.5-5.1) mmol/L Chloride (98-107) mmol/L Carbon Dioxide (21-32) mmol/L Anion Gap (3-11) BUN (7-18) mg/dl Creatinine (0.6-1.4) mg/dl Est Cr Clr Drug Dosing ml/min Est GFR ( Amer) ml/min Est GFR (Non-Af Amer) ml/min BUN/Creatinine Ratio (10-20) Glucose (70-99) mg/dl Lactate 2.3 H* (0.4-2.0) mmol/L Calcium (8.5-10.1) mg/dl Magnesium (1.8-2.4) mg/dl Total Bilirubin (0.2-1) mg/dl AST (15-37) U/L ALT (12-78) U/L Alkaline Phosphatase (45-117) U/L Troponin I (0-0.045) ng/ml Total Protein (6.4-8.2) gm/dl Albumin (3.4-5.0) gm/dl Globulin (2.5-4.0) gm/dl Albumin/Globulin Ratio (0.9-2) Procalcitonin (0-0.5) ng/ml COVID-19 Eval Order Covid19 at [facility] SARS-CoV-2 (PCR) NEGATIVE (Negative) Administered Medications Discontinued Medications Ioversol (Optiray 320 125ml) 125 ml IV ONCE ONE Stop: 09/20/21 00:32 Last Admin: 09/20/21 00:31 Dose: 118 ml Documented by: [id number] Imaging Data Radiologist's Impression: Patient: SHERRY WHITE (Male) : 36 Status: ER Date: 09/20/21 00:29 Room #: History: FELL A FEW DAYS AGO Slices: 67 Priors: Tech: Mario Alberto Martell @ [phone] Exams: CT HEAD Contrast: Accession Numbers: [id number] Referring Physician: REFERRED SELF Preliminary Findings Only See Final Report For Complete Findings CT HEAD: No ICH, mass effect or edema. No skull fracture. Radiologist: Javier Barrientos M.D. Study ready at 00:40 and initial results transmitted at 00:47 Patient: SHERRY WHITE (Male) : 36 Status: ER Date: 09/20/21 00:30 Room #: History: FELL A FEW DAYS AGO, ELEVATED DDIMER, EVAL FOR PE Slices: 816 Priors: Tech: Mario Alberto Martell @ [phone] Exams: CTA CHEST Contrast: IV Amt: 118 ML OPTIRAY 320 Accession Numbers: [id number] Referring Physician: REFERRED SELF Preliminary Findings Only See Final Report For Complete Findings CTA CHEST: No pulmonary embolus. Mild consolidative atelectasis in the lung bases No acute traumatic findings. Cardiomegaly Gynecomastia. Small hiatal hernia. Left renal cysts. Radiologist: Javier Barrientos M.D. Study ready at 00:34 and initial results transmitted at 00:52 Patient: SHERRY WHITE (Male) : 36 Status: ER B Date: 09/20/21 00:30 Room #: History: FELL A FEW DAYS AGO Slices: 809 Priors: Tech: Mario Alberto Martell @ [phone] Exams: CT C SPINE Contrast: Accession Numbers: [id number] Referring Physician: REFERRED SELF Preliminary Findings Only See Final Report For Complete Findings CT C SPINE: No evidence of fracture or malalignment. Radiologist: Javier Barrientos M.D. Study ready at 00:40 and initial results transmitted at 00:48 Patient: SHERRY WHITE (Male) : 36 Status: ER Date: 09/20/21 00:41 Room #: History: FELL A FEW DAYS AGO, UTI? ELEVATED DDIMER Slices: 717 Priors: Tech: Mario Alberto Martell @ [phone] Exams: CT ABDOMEN & PELVIS With Contrast Contrast: IV Amt: 118 ML OPTIRAY 320 Accession Numbers: [id number] Referring Physician: REFERRED SELF Preliminary Findings Only See Final Report For Complete Findings CT ABDOMEN & PELVIS With Contrast: No solid organ injury or hemoperitoneum. Compression deformity of L2, of uncertain chronicity. Correlate with tenderness. Intrathoracic findings as reported. Renal cysts. Heterogeneous prostate. Colonic diverticula without diverticulitis Radiologist: Javier Barrientos M.D. Study ready at 00:50 and initial results transmitted at 00:57 Discharge Plan Visit Data Chief Complaint: Illness Stated Complaint: SYNCOPE ED Provider: Carlos Manuel Thapa Discharge Problem: Syncope, Hypoxia, Weakness, Dizziness Patient Disposition: Being Evaluated by Hospitalist Forms Stand Alone Forms: My [facility] Prescriptions Prescriptions: No Action (DME) Wheelchair (Manual) Device See Rx Instructions .ROUTE .MEDSUPPLY Qty: 1 RF: 0 simvastatin 20 mg tablet 20 mg PO HS Qty: 90 RF: 3 losartan 100 mg tablet 100 mg PO DAILY Qty: 30 RF: 11 dutasteride 0.5 mg capsule 0.5 mg PO DAILY Qty: 90 RF: 3 nystatin 100,000 unit/gram cream 1 applic topical BID PRN (Reason: skin irritation) Qty: 30 RF: 4 alfuzosin [Uroxatral] 10 mg tablet extended release 24 hr 10 mg PO DAILY Qty: 90 RF: 3 gabapentin 100 mg capsule 100 mg PO BID RF: 0 Prune-Lax 2 tabs PO HS RF: 0 Referrals Referrals: Dawit Kearney III, MD [Primary Care Provider] -
[2021-09-19 22:45] LABS: Basophils # (auto) 0.03 K/uL (0-0.2); Basophils % (auto) 0.3 %; Eosinophils # (auto) 0.36 K/uL (0-0.5); Eosinophils % (auto) 3.4 %; Hematocrit (blood only) 39.2 % (42-52); Hemoglobin 13.2 g/dL (14.0-18.0); Immature Granulocytes # (auto) 0.02 K/uL (0.00-0.02); Immature Granulocytes % (auto) 0.2 %; Lymphocytes # (auto) 3.46 K/uL (1.2-3.4); Lymphocytes % (auto) 32.8 %; Mean Corpuscular Hemoglobin 29.5 pg (25-34); Mean Corpuscular Hgb Conc 33.7 g/dL (32-36); Mean Corpuscular Volume 87.7 fL (80-100); Mean Platelet Volume 9.3 fL (7.4-10.4); Monocytes # (auto) 1.24 K/uL (0.11-0.59); Monocytes % (auto) 11.8 %; Neutrophils # (auto) 5.43 K/uL (1.4-6.5); Neutrophils % (auto) 51.5 %; Platelet Count 235 K/uL (130-400); RDW Coefficient of Variation 14.7 % (11.5-14.5); RDW Standard Deviation 47.8 fL (36.4-46.3); Red Blood Count 4.47 M/uL (4.7-6.1); White Blood Count 10.54 K/uL (4.8-10.8)
[2021-09-19 23:16] LABS: Base Excess VBG -2.7 mEq/L; Oxygen Saturation VBG 62.6 %; pH VBG 7.4 (7.36-7.41)
[2021-09-19 23:25] LABS: Alanine Aminotransferase 60 U/L (12-78); Albumin Level 3.6 gm/dl (3.4-5.0); Aspartate Aminotransferase 35 U/L (15-37); BUN Creatinine Ratio 15.8 (10-20); Blood Urea Nitrogen 21 mg/dl (7-18); Carbon Dioxide 20 mmol/L (21-32); Chloride 110 mmol/L (98-107); Creatinine Clr Calc Pharmacy 46.9 ml/min; Est GFR (African American) 57.4 ml/min; Est GFR (Non-African American) 49.5 ml/min; Glucose 158 mg/dl (70-99); Magnesium 2.4 mg/dl (1.8-2.4); Potassium 3.5 mmol/L (3.5-5.1); Sodium 140 mmol/L (136-145)
[2021-09-19 23:26] LABS: INR 1.1 (0.9-1.1); Partial Thromboplastin Ratio 0.8; Partial Thromboplastin Time 20.3 Seconds (21.0-31.0); Prothrombin Time 10.7 Seconds (9.0-12.0)
[2021-09-19 23:30] LABS: Alkaline Phosphatase 115 U/L (45-117); Bilirubin,Total 0.5 mg/dl (0.2-1); Globulin 3.6 gm/dl (2.5-4.0); Total Protein 7.2 gm/dl (6.4-8.2); Troponin I < 0.015 ng/ml (0-0.045)
[2021-09-19 23:33] LABS: D Dimer 2760 ug/L FEU (0-500)
[2021-09-20] MEDS ORDERED: OPTIRAY 320 125ml IV ONE (00:31)
[2021-09-20] MEDS ORDERED: SODIUM CHLORIDE 0.9% 1000ML 1,000 ML IV ONE (01:07)
[2021-09-20 01:34] LABS: Appearance Urine Clear (Clear); Bacteria Urine Automated Negative (Negative); Bilirubin Urine Negative (Negative); Blood Urine Trace (Negative); Color Urine Yellow; Epithelial Cell Urine Auto 20-30 /lpf (0-5); Glucose Urine UA Negative (Negative); Ketones Urine Negative (Negative); Leukocyte Esterase Urine Negative (Negative); Nitrite Urine Negative (Negative); Protein Urine 1+ (Negative); Specific Gravity Urine 1.031 (1.000-1.030); Urobilinogen Urine Negative (Negative)
--- NOTE | 2021-09-20 02:32 | History & Physical Report ---
Date of Service September 20, 2021 Assessment & Plan (1) Syncope: Plan: Mr. Chavez is an 81 yo gentleman who presented for evaluation of a syncopal episode. - reflex mediated sounds to be most likely etiology given prodrome of dizziness and warmth (ie vasovagal?) - orthostasis is possible - I am checking a BNP and echo to evaluation for new onset CHF given LE edema (ie intravascular volume depletion) - hypotension unlikley, as BP has been above goal since arrival - cardiogenic origin is possible although EKG showing NSR; continue to monitor on tele - neurogenic syncope rare, no report of seizure-like activity by (2) Elevated serum creatinine: Plan: - Cr 1.32, BUN at 21 - baseline Cr ~ 0.9 - 1 liter of NSS given - repeat BMP in am (3) Lactate blood increased: Plan: - lactate 3.2 --> 2.3 with 1 liter of NSS - SIRS criteria not met - no infectious source identified (4) Enlarged prostate without lower urinary tract symptoms (luts): Plan: - continue home dose dutasteride (5) Hyperlipidemia: Plan: - continue home dose statin Dvt ppx: SCDs; will hold off chemo given recent fall and head strike on 09/14/21 (still in window for subdural) Diet: heart healthy Dispo: Med/tele. PT/OT ordered Code: Full, I discussed with patient History of Present Illness Primary Care Provider: Dawit Kearney MD Mr. Chavez is an 81 yo M with a PMHx of BPH with LUTS who presents today after a syncopal episode. Earlier today he came in from shucking [place] and sat in his recliner chair - his told his he was dizzy. She went to call the granddaughter to come to the house and she turned around, only to find him passed out. She said it was nearly 5 minutes until he came to; in the meantime she called EMS who brought in him for evaluation. Apparently EMS reported he was hypoxic to the high 80s and placed him on supplemental O2. Patient states he did not feel any irregular heart beat prior to passing out, nor did his vision turn pyle. He was not trying to go from a sitting to a standing position either. He did recall feeling warm. He did not strike his head; not on any thinners. Mr. Chavez got his 3rd COVID vaccine on 09/13/21 - he felt the next day and passed out and hit his head. However, he returned to his baseline between 09/14 and 09/19/21. His also says that he has much trouble voiding his bladder; he is supposed to be having a "hot steam" procedure done on 09/27/21 at the [facility] office. Patient denies any fevers, cough, SOB, nausea/vomiting or diarrhea. In the ED, he was afebrile, HR was normal, BP was 163/77, O2 was as low as 89% on room air. His WBC was not elevated. Lactate was 3.0 but improved to 2.3. Procal not elevated. COVID 19 neg. UA not concerning for infection. Blood cultures pending. D dimer was 2760. Cr 1.32, BUN 21. CMP otherwise WNL. Trop undetectable. VBG pH 7.40, bicarb mildly low at 30. EKG showing NSR, PVCs, no ST segment changes. Head and C-spine CT without fracture or acute bleed. CTA chest without evidence of PE or PNA. Cat scan of A/P showing an L2 compression deformity and incidentally noted renal cysts. He was given 1 liter of NSS. Allergies Allergy/AdvReac Type Severity Reaction Status Date / Time No Known Allergies Allergy Verified 09/19/21 23:22 Home Medications Medication Instructions Recorded Confirmed Type Wheelchair (Manual) #1 ea NS 07/10/20 05/20/21 Rx alfuzosin 10 mg tablet,extended 10 mg PO DAILY #90 tab 04/02/21 09/19/21 Rx release 24 hr (Uroxatral) simvastatin 20 mg tablet 20 mg PO HS #90 tab 05/23/21 09/19/21 Rx losartan 100 mg tablet 100 mg PO DAILY #30 tab 09/18/21 09/19/21 Rx Prune-Lax 2 tabs PO HS 09/19/21 09/19/21 History dutasteride 0.5 mg capsule 0.5 mg PO DAILY #90 cap 09/19/21 09/19/21 Rx gabapentin 100 mg capsule 100 mg PO BID 09/19/21 09/19/21 History nystatin 100,000 unit/gram topical 1 applic TOPICAL BID PRN #30 g 10/28/21 10/28/21 Rx cream 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 Tubular adenoma of colon Surgical History H/O inguinal hernia repair H/O laminectomy H/O total knee replacement Hx of transurethral resection of prostate Family History Brother Schizophrenia Prostate cancer Stroke Other No pertinent family history Social History Smoking Status: Unknown if ever smoked Age Started Using Tobacco: 13; Second Hand Exposure: No; Hx Alcohol Use: No Hx Substance Use: No Preferred Language: Gabonese Communication Ability: Effective Manager Of Financial Planning Required: No Beliefs That Will Affect Care: None marital status: Current Living Situation: Spouse current occupational status: employed 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 Other Information That Helps Us Care for You: No Feels Safe at Home: Yes Seatbelt Use: always Sunscreen Use: No Assistive Devices: Walker Review of Systems Review of Systems: All systems reviewed & are unremarkable except as noted in HPI & below Physical Exam Constitutional: WD/WN, vitals as above cooperative; no acute distress Eyes: + anicteric sclerae ENMT: external ear and nose normal, oropharynx normal Neck: trachea midline Respiratory: normal respiratory effort, lungs clear to auscultation no cough Auscultation: no crackles and no wheezes Cardiovascular: Rate/Rhythm: regular rate and regular rhythm Heart Sounds: normal S1 and normal S2 Extremities: + pedal edema (+1 b/l) heart sounds distant Gastrointestinal (Abdomen): Inspection/Auscultation: + abdomen distended and normal bowel sounds Percussion/Palpation: abdomen soft; abdomen nontender and no guarding Musculoskeletal: Head/Neck/Chest: normocephalic and head atraumatic Skin: no rashes, warm and dry Neurologic: moves all extremities Psychiatric: A+Ox3, euthymic affect Results & Data Results & Data ([facility]) Vital Signs (Past 12 Hours) Vital Signs Temp Pulse Pulse BP BP Pulse Ox 09/20/21 02:05 80 164/72 H 89 L 09/20/21 01:43 79 125/84 91 09/20/21 01:24 85 167/68 H 93 09/20/21 00:36 78 144/87 H 93 09/20/21 00:18 75 123/79 96 09/19/21 23:15 36.4 C L 86 106/60 92 09/19/21 23:11 88 90 Supervising Physician Co-Signing Physician Notes Attending addendum: I have physically seen this patient, have supervised the medical residents activities, and agree with the H&P unless as otherwise noted. Assessment and Plan: Syncope- The patient will be admitted to telemetry for serial cardiac enzymes, serial EKG's, cardiac rhythm monitoring and a 2-D echocardiogram with Dopplers. Orthostatic vital signs Monitor use of alfuzosin as potential contributor to orthostasis Acute kidney injury- Creatinine 1.32 upon admission, with baseline 0.9 May point to mild dehydration contributing to orthostasis as cause of syncope Remaining orders and notations as noted Resident Activity Tracking Resident Involvement: Resident Care Provided Care Provided: Adult Hospital Medicine (1) Hyperlipidemia Hyperlipidemia type: unspecified Qualified Code(s): E78.5 - Hyperlipidemia, unspecified (2) Syncope Syncope type: unspecified Qualified Code(s): R55 - Syncope and collapse
[2021-09-20] MEDS ORDERED: POLYETHYLENE (MIRALAX) 17 GM PACK PO PRN (05:38)
[2021-09-20] MEDS ORDERED: SODIUM CHLORIDE 0.9% 1000ML 1,000 ML IV SCH (05:38)
[2021-09-20] MEDS ORDERED: ACETAMINOPHEN 325 MG TAB PO PRN (05:38)
[2021-09-20] MEDS ORDERED: ONDANSETRON INJ 2 MG/ML 2 ML VIAL IV PRN (05:38)
[2021-09-20] MEDS ORDERED: INFLUENZA VACCINE HIGH DOSE PF 65+ 0.7 ML SYR IM ONE (06:03)
--- NOTE | 2021-09-20 07:20 | CT Scan Report ---
CT head/brain wo con CLINICAL HISTORY: 81 years-old Male with fall. Acute head and neck injury status post fall TECHNIQUE: Multiple axial CT images of the head were obtained without contrast. A dose lowering tech nique was utilized adhering to the principles of ALARA. CT DOSE: 3557.07 mGy.cm COMPARISON: Head CT 08/24/2018 FINDINGS: No acute intracranial hemorrhage, midline shift, intracranial mass, hydrocephalus, territorial ischem ia or abnormal extra-axial collection. Age-related involutional changes. White matter hypodensities s uggestive of chronic microvascular ischemic disease. Cerebral vascular calcifications. The calvarium is intact. Mild mucosal thickening of the ethmoid air cells. The mastoid air cells are clear. IMPRESSION: No acute intracranial abnormality or calvarial fracture. ACT 112: Negative or not required by law. The above report was generated using voice recognition software. It may contain grammatical, syntax o r spelling errors. Electronically signed by: Feliciano Pretty M.D. 09/20/2021 7:19 AM
--- NOTE | 2021-09-20 07:27 | CT Scan Report ---
CT cervical spine wo con CLINICAL HISTORY: 81 years-old Male with fall. Acute head and neck injury status post fall COMPARISON: None. TECHNIQUE: Multiple axial CT images of the cervical spine were obtained without contrast. A dose low ering technique was utilized adhering to the principles of ALARA. FINDINGS: Moderate to severe multilevel intervertebral disc space narrowing with spondylitic spurring , severe facet arthrosis and posterior disc osteophyte complex formations. Stepwise anterolisthesis i s noted at several levels which is likely secondary to chronic facet arthrosis, similar to comparison . Multilevel neural foraminal narrowing. Lower cervical levoscoliosis. No prevertebral edema. Lung apices are clear without pneumothorax. Calcified plaque of the carotid ar teries. IMPRESSION: No acute cervical spine fracture or subluxation. ACT 112: Negative or not required by law. The above report was generated using voice recognition software. It may contain grammatical, syntax o r spelling errors. Electronically signed by: Feliciano Pretty M.D. 09/20/2021 7:26 AM
[2021-09-20 07:30] LABS: Basophils # (auto) 0.02 K/uL (0-0.2); Basophils % (auto) 0.3 %; Eosinophils # (auto) 0.13 K/uL (0-0.5); Eosinophils % (auto) 1.7 %; Hematocrit (blood only) 34.9 % (42-52); Immature Granulocytes # (auto) 0.01 K/uL (0.00-0.02); Immature Granulocytes % (auto) 0.1 %; Lymphocytes # (auto) 2.04 K/uL (1.2-3.4); Mean Corpuscular Hemoglobin 29.3 pg (25-34); Mean Corpuscular Hgb Conc 34.4 g/dL (32-36); Mean Corpuscular Volume 85.3 fL (80-100); Mean Platelet Volume 8.9 fL (7.4-10.4); Monocytes # (auto) 0.84 K/uL (0.11-0.59); Monocytes % (auto) 10.7 %; Neutrophils # (auto) 4.82 K/uL (1.4-6.5); Neutrophils % (auto) 61.2 %; Platelet Count 223 K/uL (130-400); RDW Coefficient of Variation 14.9 % (11.5-14.5); RDW Standard Deviation 46.9 fL (36.4-46.3); Red Blood Count 4.09 M/uL (4.7-6.1); White Blood Count 7.86 K/uL (4.8-10.8)
[2021-09-20 07:38] LABS: BUN Creatinine Ratio 18.8 (10-20); Calcium 8.5 mg/dl (8.5-10.1); Creatinine Clr Calc Pharmacy 60.7 ml/min; Est GFR (African American) 78.4 ml/min; Est GFR (Non-African American) 67.7 ml/min
--- NOTE | 2021-09-20 07:58 | CT Scan Report ---
CHEST CTA for PULMONARY ARTERIES CT DOSE: HISTORY: Fall. Elevated d-dimer. Evaluate for pulmonary embolus. TECHNIQUE: Multiaxial CT images of the chest were performed following the intravenous administration of contrast to evaluate the pulmonary arteries. Maximal intensity projection images were also obtaine d. A dose lowering technique was utilized adhering to the principles of ALARA. COMPARISON STUDY: None FINDINGS: 5 cm hypodense lesion within the left kidney which likely represents a cyst. The visualized liver, spleen, and adrenal glands are unremarkable. No pleural or pericardial effusions. Small hiatu s hernia. Fluid within the borderline distended esophagus. Mild esophageal wall thickening. The heart is mildly enlarged. No mediastinal or hilar lymphadenopathy. No pneumothorax. The central airways ar e patent. Small patchy densities within the lingula and lower lobes posteriorly. This favors atelecta sis or scarring. A few scattered punctate calcified granulomas. No evidence for pulmonary edema. No f ractures within the visualized osseous structures. Normal caliber thoracic aorta with no evidence for dissection. Severe calcified plaque within the coronary arteries. No filling defects within the pulm onary arteries to suggest a pulmonary embolus. Bilateral gynecomastia. IMPRESSION: 1. No evidence for pulmonary embolus. 2. Mild cardiomegaly. 3. Small patchy densities within the lingula and lower lobes posteriorly. This is nonspecific but fav ors atelectasis. 4. Small hiatus hernia. ACT 112: Negative or not required by law. Electronically signed by: Oscar Sarabia M.D. 09/20/2021 7:57 AM
[2021-09-20] MEDS ORDERED: GABAPENTIN 100 MG CAP PO SCH (09:00)
[2021-09-20] MEDS ORDERED: ALFUZOSIN HCL 10 MG TAB PO SCH (09:00)
--- NOTE | 2021-09-20 09:14 | CT Scan Report ---
ABDOMEN AND PELVIS CT WITH IV CONTRAST HISTORY: Acute abdominal trauma status post fall. Urinary tract infection. fall TECHNIQUE: Multiaxial CT images of the abdomen and pelvis were performed following the IV administrat ion of 118 cc of Optiray, A dose lowering technique was utilized adhering to the principles of ALARA . COMPARISON STUDY: CTA chest of same day, CT lumbar spine August 24, 2018 FINDINGS: Bibasilar opacities suggest probable atelectasis. Mild cardiomegaly. No pneumatosis or pneumoperitone um. Study is limited secondary to upper extremity positioning. The spleen, mildly atrophic pancreas, adrenal glands, gallbladder and liver appear unremarkable. Patency of the hepatic and portal veins. B ilateral renal cysts measure up to 5 mm on the left and 2.6 cm on the right. No renal or ureteral roxane culi or hydronephrosis. Prostamegaly with mild urinary bladder wall thickening. Atherosclerosis of th e aorta without aneurysm. There is no adenopathy. Unremarkable IVC. Small hiatal hernia with fluid within the distal esophagus. No bowel obstruction or bowel wall thicke janel. Colonic diverticulosis. The appendix is not definitively seen. 9 mm lymph node lateral to the p ancreatic head. Tiny fat filled periumbilical hernia. Unremarkable soft tissues. Degenerative changes of the spine, pelvis and hips. No acute fracture. Mid lumbar dextroscoliosis. Chronic L2 compression deformity. IMPRESSION: 1. No acute posttraumatic intra-abdominal or intrapelvic abnormality. 2. No acute fracture. 3. Prostamegaly with mild urinary bladder wall thickening suggestive of chronic bladder outlet obstru ction. Correlate with urinalysis to exclude cystitis. 4. Chronic L2 compression deformity. 5. Colonic diverticulosis. 6. Additional findings as above. ACT 112: Negative or not required by law. The above report was generated using voice recognition software. It may contain grammatical, syntax o r spelling errors. Electronically signed by: Feliciano Pretty M.D. 09/20/2021 9:12 AM
--- NOTE | 2021-09-20 09:25 | XRay Report ---
XR chest 1V portable HISTORY: SEPSIS COMPARISON: Chest 08/24/2018. FINDINGS: There are low lung volumes. The heart remains mildly enlarged. Bibasilar linear densities f avor subsegmental atelectasis. No evidence for pulmonary edema. No pleural effusions. No pneumothorax . IMPRESSION: Bibasilar linear densities. This favors subsegmental atelectasis. ACT 112: Negative or not required by law. Electronically signed by: Oscar Sarabia M.D. 09/20/2021 9:24 AM
--- NOTE | 2021-09-20 09:42 | Electrocardiogram Report ---
Test Reason : Blood Pressure : / mmHG Vent. Rate : 083 BPM Atrial Rate : 083 BPM P-R Int : 192 ms QRS Dur : 104 ms QT Int : 390 ms P-R-T Axes : 047 042 043 degrees QTc Int : 458 ms Sinus rhythm with occasional Premature ventricular complexes Otherwise normal ECG When compared with ECG of 25-AUG-2018 06:39, Premature ventricular complexes are now Present Confirmed by Jonatan Echeverria ([id number]) on 09/20/2021 9:42:32 AM Referred By: REFERRED SELF Confirmed By:Juan Antonio Echeverria
--- NOTE | 2021-09-20 11:46 | XCELERA ---
[id number]
[2021-09-20] MEDS ORDERED: LOSARTAN POTASSIUM 50 MG TAB PO STA (15:58)
[2021-09-20] MEDS ORDERED: SIMVASTATIN 20 MG TAB PO SCH (21:00)
--- NOTE | 2021-09-20 22:31 | Billing Data ---
Date of Service September 20, 2021 Coding Level of Care Code INT OBSERVATION CARE 70M LVL 3
--- NOTE | 2021-09-21 20:23 | Discharge Summary ---
Date of Service September 20, 2021 Admission HPI Per Admitting Provider Mr. Chavez is an 81 yo M with a PMHx of BPH with LUTS who presents today after a syncopal episode. Earlier today he came in from shucking corn and sat in his recliner chair - his told his he was dizzy. She went to call the granddaughter to come to the house and she turned around, only to find him passed out. She said it was nearly 5 minutes until he came to; in the meantime she called EMS who brought in him for evaluation. Apparently EMS reported he was hypoxic to the high 80s and placed him on supplemental O2. Patient states he did not feel any irregular heart beat prior to passing out, nor did his vision turn pyle. He was not trying to go from a sitting to a standing position either. He did recall feeling warm. He did not strike his head; not on any thinners. Mr. Chavez got his 3rd COVID vaccine on 09/13/21 - he felt the next day and passed out and hit his head. However, he returned to his baseline between 09/14 and 09/19/21. His also says that he has much trouble voiding his bladder; he is supposed to be having a "hot steam" procedure done on 09/27/21 at the [facility] office. Patient denies any fevers, cough, SOB, nausea/vomiting or diarrhea. In the ED, he was afebrile, HR was normal, BP was 163/77, O2 was as low as 89% on room air. His WBC was not elevated. Lactate was 3.0 but improved to 2.3. Procal not elevated. COVID 19 neg. UA not concerning for infection. Blood cultures pending. D dimer was 2760. Cr 1.32, BUN 21. CMP otherwise WNL. Trop undetectable. VBG pH 7.40, bicarb mildly low at 30. EKG showing NSR, PVCs, no ST segment changes. Head and C-spine CT without fracture or acute bleed. CTA chest without evidence of PE or PNA. Cat scan of A/P showing an L2 compression deformity and incidentally noted renal cysts. He was given 1 liter of NSS. Principal Diagnosis Vasovagal syncope Discharge Exam Constitutional WD/WN, vitals as above Eyes PERRL, conjunctivae normal, anicteric sclerae Neck trachea midline, no thyromegaly Respiratory normal respiratory effort, lungs clear to auscultation Cardiovascular RRR, no murmur, no edema (occasional missed beats) Gastrointestinal (Abdomen) Inspection/Auscultation: abdomen normal to inspection Percussion/Palpation: abdomen soft; abdomen nontender Skin no rashes, warm and dry Neurologic moves all extremities and awake; no focal motor deficits (no lateralizing deficit) and not confused Motor/Sensory: no sensory deficit Cranial Nerves: PERRL, EOM intact bilaterally, normal facial strength, tongue midline, able to rotate head bilaterally, able to elevate shoulders bilaterally, no nystagmus and symmetric palate elevation Psychiatric A+Ox3, euthymic affect Discharge Data Allergies Allergy/AdvReac Type Severity Reaction Status Date / Time No Known Allergies Allergy Verified 09/19/21 23:22 Consultations 09/20/21 01:24 ED Decision to Admit Stat Ordered Studies 09/19/21 23:37 CT abd pelvis IV con only Urgent IMPRESSION: 1. No acute posttraumatic intra-abdominal or intrapelvic abnormality. 2. No acute fracture. 3. Prostamegaly with mild urinary bladder wall thickening suggestive of chronic bladder outlet obstruction. Correlate with urinalysis to exclude cystitis. 4. Chronic L2 compression deformity. 5. Colonic diverticulosis. 6. Additional findings as above. CT angio chest PE protocol Urgent IMPRESSION: 1. No evidence for pulmonary embolus. 2. Mild cardiomegaly. 3. Small patchy densities within the lingula and lower lobes posteriorly. This is nonspecific but favors atelectasis. 4. Small hiatus hernia. CT cervical spine wo con Urgent IMPRESSION: No acute cervical spine fracture or subluxation. CT head/brain wo con Urgent IMPRESSION: No acute intracranial abnormality or calvarial fracture. Hospital Course (1) Syncope: Luca Chavez is an 81 year old male observed overnight at [facility] due to a fainting episode. CT head, chest, abdomen and pelvis did not show any acute infective changes and white blood count was normal. No arrhythmias detected on telemetry or pacemaker interrogation. Orthostatics showed no significant drop in your blood pressure after IV fluids given overnight. Echocardiogram was limited but did not show anything of concern. He was back to his baseline on discharge. His blood pressure is currently elevated (197/94) on discharge but he is not symptomatic from this and on discussion with him and his they wished to be discharged rather further workup for this - recommend following up his primary care physician. Suspect fainting episode secondary to vasovagal stimulation related to his bowel movement in the setting of mild dehydration. No changes to his medications were made. (2) Elevated serum creatinine: (3) Lactate blood increased: (4) Enlarged prostate without lower urinary tract symptoms (luts): (5) Hyperlipidemia: Total Time Total Time Spent Total Time Spent (In Minutes): 45 Discharge Plan Discharge Items Patient Disposition: Home - Self-Care Reason For Visit: SYNCOPE Discharge Diagnosis: Vasovagal syncope Activity: Resume your previous activity Non-emergency contact: Primary Care Provider Call non-emergency contact if: you have any medication questions and your symptoms worsen Follow-up/Referrals: Dawit Kearney III, MD [Primary Care Provider] - Diet: Heart Healthy Addtl Attending Provider Instructions: You were observed overnight at [facility] due to a fainting episode. Imaging of head, chest, abdomen and pelvis did not show any acute infective changes and white blood count was normal. No abnormal rhythms were detected on telemetry. Orthostatics showed no significant drop in your blood pressure after IV fluids given overnight. You are appear to be at your baseline on discharge. Echocardiogram was limited but did not show anything of concern. Your blood pressure is currently elevated - recommend following up with your primary care physician regarding this. Suspect fainting episode secondary to vasovagal stimulation related to your bowel movement in the setting of mild dehydration. Please continue on your regular medications. Pending Studies at Discharge: Yes (blood cultures pending at time of discharge) Stand-Alone Forms: My [facility], Smoking Cessation Medications and DC Order Prescriptions: Continued (DME) Wheelchair (Manual) Device See Rx Instructions .ROUTE .MEDSUPPLY Qty: 1 RF: 0 simvastatin 20 mg tablet 20 mg PO HS Qty: 90 RF: 3 losartan 100 mg tablet 100 mg PO DAILY Qty: 30 RF: 11 dutasteride 0.5 mg capsule 0.5 mg PO DAILY Qty: 90 RF: 3 nystatin 100,000 unit/gram cream 1 applic topical BID PRN (Reason: skin irritation) Qty: 30 RF: 4 alfuzosin [Uroxatral] 10 mg tablet extended release 24 hr 10 mg PO DAILY Qty: 90 RF: 3 gabapentin 100 mg capsule 100 mg PO BID RF: 0 Prune-Lax 2 tabs PO HS RF: 0 Discharge Orders: Discharge Order (Routine); Ordered 09/20/21 Ordered By: Tj Power Admission Data Admit Date/Time: 09/20/21 02:08 Attending Provider: Tj Power Admit Provider: Natali Anderson Primary Care Provider: Dawit Kearney III Other Providers: Carson Villasenor Other Interventions: Discharge Summary Assessment (RN) Last Done: 09/20/21 16:21 Coding Level of Care Code 54686 OBS Care - Discharge Diagnoses Syncope R55 Syncope type: unspecified Elevated serum creatinine R79.89 Lactate blood increased R79.89 Enlarged prostate without lower urinary tract symptoms (luts) N40.0 Hyperlipidemia E78.5 Hyperlipidemia type: unspecified
== END 2021-09-20 17:00 | disposition home or self-care (01) ==
LOC: ED 22:25 → 2W 22:25 → SUATTDRO 09-20 02:08 → 2W 09-20 05:04

== ENCOUNTER 2024-10-01 10:05 | Inpatient (IN) ==
[2024-10-01 10:35] LABS: Basophils # (auto) 0.05 K/uL (0.00-0.20); Basophils % (auto) 0.2 %; Eosinophils # (auto) 0.01 K/uL (0.00-0.50); Hematocrit (blood only) 35.2 % (42.0-52.0); Immature Granulocytes # (auto) 0.21 K/uL (0.01-0.20); Immature Granulocytes % (auto) 0.9 %; Lymphocytes # (auto) 2.15 K/uL (1.20-3.40); Lymphocytes % (auto) 9.7 %; Mean Corpuscular Hgb Conc 34.1 g/dL (32.0-36.0); Mean Platelet Volume 9.1 fL (9.4-12.4); Monocytes # (auto) 1.98 K/uL (0.11-0.59); Monocytes % (auto) 8.9 %; Neutrophils # (auto) 17.73 K/uL (1.40-6.50); Neutrophils % (auto) 80.3 %; Platelet Count 256 K/uL (130-400); RDW Coefficient of Variation 13.7 % (11.5-14.5); RDW Standard Deviation 44.4 fL (36.4-46.3); White Blood Count 22.13 K/ul (4.8-10.8)
[2024-10-01 11:00] LABS: Alanine Aminotransferase 19 U/L (7-52); Albumin Globulin Ratio 1.2 (0.9-2); Albumin Level 4.1 gm/dl (3.4-5.0); Alkaline Phosphatase 95 U/L (34-104); Anion Gap 9 (3-11); Aspartate Aminotransferase 19 U/L (13-39); BUN Creatinine Ratio 21.5 (10-20); Blood Urea Nitrogen 20 mg/dl (6-23); Calcium 9.4 mg/dl (8.6-10.3); Carbon Dioxide 25 mmol/L (21-32); Chloride 103 mmol/L (98-107); Globulin 3.3 gm/dl (2.5-4.0); Glucose 131 mg/dl (70-99(Fasting)); INR 1.1 (0.9-1.1); Partial Thromboplastin Ratio 1.1; Partial Thromboplastin Time 29 Seconds (21-31); Potassium 3.8 mmol/L (3.5-5.1); Prothrombin Time 11.7 Seconds (9.0-12.0); Sodium 137 mmol/L (136-145); Total Protein 7.4 gm/dl (6.0-8.3)
[2024-10-01 11:06] LABS: Troponin I High Sensitivity 17.4 pg/ml (0-20)
--- NOTE | 2024-10-01 11:37 | Emergency Department Note ---
Impression & Plan Aspiration pneumonia, (HFpEF) heart failure with preserved ejection fraction, Leukocytosis ED Provider Note NAME: SHERRY WHITE AGE: 84 SEX: M : 1940 ARRIVES VIA: Ambulance INFORMANT: Patient ED PROVIDER(S): Kyrie Blanc MD CHIEF COMPLAINT: Shortness of breath, congestion. PLAN: Disposition: Admit MEDICAL DECISION MAKING: The patient is a pleasant 84-year-old gentleman with a past medical history of BPH, hypertension, hyperlipidemia, CHF with preserved EF who presents to the emergency department via EMS and then accompanied by his for evaluation of cough and congestion since yesterday where he has productive mucus and reports fatigue and persistent nausea. EMS reported that he was found to be hypoxic to 85% on room air and this improved with 2 L nasal cannula. There have been family members that the patient has been in contact with with flulike symptoms recently. Patient does have chronic bilateral lower extremity edema which has been worsening. The patient denies chest pain or abdominal pain. On evaluation the patient is acute on chronically ill-appearing but in no acute distress, afebrile with heart in the 90s and blood pressure 160s/80s and vital signs otherwise stable. O2 saturation is 91% on room air improving to mid 90s on 3 L nasal cannula. He exhibits substantial upper respiratory congestion which is somewhat challenging for him to expectorate. There is a scant intermittent wheeze and rhonchi of bilateral lower lung valenzuela. He appears hypervolemic with 3+ bilateral lower extremity pitting edema. EKG is without overt acute ischemia. Chest x-ray demonstrates moderate bibasilar opacities suggestive of aspiration/pneumonia. WBC 22K with neutrophilia and left shift. H/H similar to prior range values. Platelets within normal limits. Chemistry without metabolic acidosis. LFTs unremarkable. Lactic acid 1.4, within normal limits. BNP is elevated to 51, consistent with patient's hypervolemic appearance. Procalcitonin is not elevated. Respiratory BioFire was negative. Given the patient's leukocytosis with left shift in the setting of chest x-ray findings and symptoms suggestive of pneumonia empiric treatment initiated with Zosyn. MRSA swab was ordered and pending. Additionally, IV Lasix administered for component of hypervolemia. DuoNeb administered for component of bronchospasm. Patient and his agree with plan for admission for further management. Case was discussed with Dr. Cuellar [facility] hospitalist, who will evaluate the patient for admission. Triage Nursing notes reviewed and agree them. Prior/external medical records reviewed Vital Signs: reviewed Differential diagnosis: Reactive airway disease, pneumonia, pneumothorax, COPD, CHF, infections, cardiac ischemia, pulmonary embolism, musculoskeletal, gastrointestinal, as well as other pathologies. ER treatment provided: See below. Diagnostics interpreted by me: ECG: Sinus rhythm with first-degree AV block, 85 bpm, no ectopy, no overt ST elevation or depression, QTc 452, QRS 108. Cardiac Monitoring: An order for continuous cardiac monitoring was placed and demonstrated Sinus rhythm with first-degree AV block, 85 bpm, no ectopy. Laboratory studies: See below Imaging studies: See below Consultation(s): Case was discussed with Dr. Cuellar, [facility] hospitalist, who will evaluate the patient for admission. HPI: The patient is a pleasant 84-year-old gentleman with a past medical history of BPH, hypertension, hyperlipidemia, CHF with preserved EF who presents to the emergency department via EMS and then accompanied by his for evaluation of cough and congestion since yesterday where he has productive mucus and reports fatigue and persistent nausea. EMS reported that he was found to be hypoxic to 85% on room air and this improved with 2 L nasal cannula. There have been family members that the patient has been in contact with with flulike symptoms recently. Patient does have chronic bilateral lower extremity edema which has been worsening. The patient denies chest pain or abdominal pain. ROS: See above HPI for pertinent positives & negatives. A total of 10 systems reviewed and were otherwise negative. VITALS:See Below PHYSICAL EXAMINATION: GENERAL: Awake, alert, acute on chronically-appearing, in no distress HENT: Normocephalic, atraumatic. Boggy nasal turbinates. Oropharynx unremarkable. Exhibits substantial upper respiratory congestion which is somewhat challenging for him to expectorate. EYES: Normal conjunctiva. Sclera non-icteric. NECK: Supple. No nuchal rigidity. FROM. No JVD. RESPIRATORY: Scant intermittent wheeze and rhonchi of bilateral lower lung valenzuela. CARDIAC: Regular rate, normal rhythm. Extremities warm and well perfused. Pulses equal. ABDOMEN: Soft, non-distended. No tenderness to palpation. No rebound or guarding. No masses. MUSCULOSKELETAL: Chest examination reveals no tenderness. The back is symmetrical on inspection without obvious abnormality. There is no CVA tenderness to palpation. No joint edema. LOWER EXTREMITIES: Calves are equal size bilaterally and non-tender. 3+ bilateral lower extremity pitting edema. No discoloration. NEURO: Normal sensorium. No sensory or motor deficits noted. SKIN: No rash or jaundice noted. Kyrie Blanc MD Past Med/Surg History Problem List (Updated 10/01/24 @ 19:08 by Kyrie Blanc MD) Leukocytosis (Acute) Aspiration pneumonia (Acute) (HFpEF) heart failure with preserved ejection fraction (Acute) PNA (pneumonia) Leg edema Right ear impacted cerumen Prediabetes Elevated serum creatinine Weakness (Acute) Impaired fasting glucose Postherpetic neuralgia Numbness of left lower extremity (Chronic) Tubular adenoma of colon (Acute) Lumbar disc disorder with myelopathy (Chronic) Lumbar canal stenosis (Chronic) Hyperthyroidism (Chronic) Hypertension (Chronic) Hyperlipidemia (Chronic) Herpes zoster without complication (Acute) Gynecomastia, male (Acute) Enlarged prostate without lower urinary tract symptoms (luts) (Acute) Anemia (Chronic) hx Low TSH level hx BPH (benign prostatic hyperplasia) (Chronic) Chronic back pain Right knee DJD Left knee DJD (Acute 08/03/14) Medical History Lumbar canal stenosis DJD (degenerative joint disease) of knee Postherpetic neuralgia hx, no issues currently History of colon polyps Hyperthyroidism hx HTN (hypertension) Hyperlipidemia Chronic back pain Anemia hx BPH (benign prostatic hyperplasia) hx- s/p TURP Prediabetes diet controlled, no meds History of anesthesia reaction after knee replacement had issues with being able to void--had to have prostate surgery Dizziness hx of--per happens when he is dehydrated, no issues recently Syncope hx--per happens when pt is dehydrated, no issues recently Compression fracture of thoracic vertebra hx Surgical History Hx of cataract extraction left History of colonoscopy History of tooth extraction Hx of transurethral resection of prostate H/O inguinal hernia repair x2 H/O laminectomy H/O total knee replacement x2--one on right and left Family History Brother Prostate cancer Schizophrenia Stroke Mother Heart disease Other No family history of adverse response to anesthesia No pertinent family history Denies family history of Ovarian cancer Myocardial infarction Breast cancer Colorectal cancer Social History Smoking Status: Never smoker Tobacco Type: Smokeless Tobacco (Dip or Chew) Second Hand Exposure: No; Do You Dip or Chew Tobacco: Yes; Hx Alcohol Use: No Hx Substance Use: No Preferred Language: Portuguese Communication Ability: Effective Visual Impairment: No Limitations Hearing Ability: Normal Catering Barista Required: No Beliefs That Will Affect Care: None marital status: Current Living Situation: Spouse current occupational status: retired current occupation: worked on his dairy farm, 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 Feels Safe at Home: Yes Safety Concerns: Feels Safe At This Time Childhood Exposure to Second-Hand Smoke: No Diet: regular caffeine: Yes (one cup daily ) Dental Care, Regularly: Yes Physical Activity Frequency: Does not Exercise Seatbelt Use: sometimes Sunscreen Use: Yes Assistive Devices: Bedside Commode Allergies Allergies Allergy/AdvReac Type Severity Reaction Status Date / Time No Known Allergies Allergy Verified 09/01/24 09:08 Home Meds Home Medications Medication Instructions Recorded Confirmed melatonin 5 mg tablet 5 mg PO HS 05/05/22 10/01/24 Cbd Gummy 15 mg PO QPM 03/23/24 10/01/24 losartan 100 mg tablet 100 mg PO QPM 03/23/24 10/01/24 plum extract 1,000 mg tablet 1,000 mg PO QPM 03/23/24 10/01/24 Previous Rx's Medication Instructions Recorded Wheelchair (Manual) #1 ea 07/10/20 simvastatin 20 mg tablet 20 mg PO QPM #90 tabs 04/25/24 furosemide 20 mg tablet 20 mg PO QAM #90 tabs 05/31/24 gabapentin 100 mg capsule 300 mg (3 x 100 mg) PO DAILY 90 06/23/24 days #270 caps Results & Data (ED) Vital Signs Vital Signs - 24 hr 10/01/24 10:14 10/01/24 10:53 10/01/24 11:06 Temperature 37.2 C Temperature Source Oral Pulse Rate 91 H 81 Pulse Rate from SpO2 Sensor 81 Respiratory Rate 21 17 Respiratory Effort / Characteristics Respiratory Depth Respiratory Pattern Blood Pressure 161/86 H 188/112 H Blood Pressure Mean 111 137 Pulse Oximetry 91 88 L 95 Oxygen Delivery Method Room Air Nasal Cannula Nasal Cannula Oxygen Flow Rate 0 2 Sepsis New/Unexplained Change in Mental Status No Sepsis Action Taken by Nursing No Action Required Oxygen Flow Rate - Titration 2 Pulse Oximetry Post Tiitration 93 10/01/24 11:30 10/01/24 11:49 10/01/24 11:57 Temperature Temperature Source Pulse Rate 83 85 82 Pulse Rate from SpO2 Sensor 88 Respiratory Rate 18 27 H Respiratory Effort / Characteristics Respiratory Depth Respiratory Pattern Blood Pressure Blood Pressure Mean Pulse Oximetry 93 Oxygen Delivery Method Oxygen Flow Rate Sepsis New/Unexplained Change in Mental Status Sepsis Action Taken by Nursing Oxygen Flow Rate - Titration Pulse Oximetry Post Tiitration 10/01/24 12:00 10/01/24 12:15 10/01/24 12:36 Temperature Temperature Source Pulse Rate 84 87 86 Pulse Rate from SpO2 Sensor 85 Respiratory Rate 20 17 16 Respiratory Effort / Characteristics Respiratory Depth Respiratory Pattern Blood Pressure Blood Pressure Mean Pulse Oximetry 94 Oxygen Delivery Method Oxygen Flow Rate Sepsis New/Unexplained Change in Mental Status Sepsis Action Taken by Nursing Oxygen Flow Rate - Titration Pulse Oximetry Post Tiitration 10/01/24 12:54 10/01/24 13:00 10/01/24 13:11 Temperature Temperature Source Pulse Rate 90 91 H Pulse Rate from SpO2 Sensor Respiratory Rate 20 17 Respiratory Effort / Characteristics Non-Labored Spontaneous Respiratory Depth Shallow Respiratory Pattern Tachypnea Blood Pressure 168/89 H Blood Pressure Mean 115 Pulse Oximetry Oxygen Delivery Method Nasal Cannula Oxygen Flow Rate 3 Sepsis New/Unexplained Change in Mental Status Sepsis Action Taken by Nursing Oxygen Flow Rate - Titration Pulse Oximetry Post Tiitration 10/01/24 13:27 10/01/24 13:30 Temperature Temperature Source Pulse Rate 89 90 Pulse Rate from SpO2 Sensor Respiratory Rate 19 19 Respiratory Effort / Characteristics Respiratory Depth Respiratory Pattern Blood Pressure Blood Pressure Mean Pulse Oximetry Oxygen Delivery Method Oxygen Flow Rate Sepsis New/Unexplained Change in Mental Status Sepsis Action Taken by Nursing Oxygen Flow Rate - Titration Pulse Oximetry Post Tiitration Laboratory Data Attestation: I reviewed the patient's lab results. 10/01/24 10:15 10/01/24 10:15 Lab Results 10/01/24 10/01/24 10/01/24 Range/Units 10:15 10:23 11:54 WBC 22.13 H (4.8-10.8) K/ul RBC 4.00 L (4.70-6.10) M/uL Hgb 12.0 L (14.0-18.0) g/dl Hct 35.2 L (42.0-52.0) % MCV 88.0 (80.0-100.0) fL MCH 30.0 (25.0-34.0) pg MCHC 34.1 (32.0-36.0) g/dL RDW Std Deviation 44.4 (36.4-46.3) fL RDW Coeff of Costa 13.7 (11.5-14.5) % Plt Count 256 (130-400) K/uL MPV 9.1 L (9.4-12.4) fL Immature Gran % (Auto) 0.9 % Neut % (Auto) 80.3 % Lymph % (Auto) 9.7 % Bartholomew % (Auto) 8.9 % Eos % (Auto) 0.0 % Baso % (Auto) 0.2 % Neut # (Auto) 17.73 H (1.40-6.50) K/uL Lymph # (Auto) 2.15 (1.20-3.40) K/uL Bartholomew # (Auto) 1.98 H (0.11-0.59) K/uL Eos # (Auto) 0.01 (0.00-0.50) K/uL Baso # (Auto) 0.05 (0.00-0.20) K/uL Immature Gran # (Auto) 0.21 H (0.01-0.20) K/uL PT 11.7 (9.0-12.0) Seconds INR 1.1 (0.9-1.1) APTT 29 (21-31) Seconds PTT Ratio 1.1 Sodium 137 (136-145) mmol/L Potassium 3.8 (3.5-5.1) mmol/L Chloride 103 (98-107) mmol/L Carbon Dioxide 25 (21-32) mmol/L Anion Gap 9 (3-11) BUN 20 (6-23) mg/dl Creatinine 0.93 (0.6-1.4) mg/dl Est Cr Clr Drug Dosing Not Reportable eGFR 79.97 BUN/Creatinine Ratio 21.5 H (10-20) Glucose 131 H (70-99(Fasting)) mg/dl Lactate 1.4 (0.4-2.0) mmol/L Calcium 9.4 (8.6-10.3) mg/dl Total Bilirubin 1.0 (0.2-1.0) mg/dl AST 19 (13-39) U/L ALT 19 (7-52) U/L Alkaline Phosphatase 95 (34-104) U/L Troponin I High Sens 17.4 (0-20) pg/ml B-Natriuretic Peptide (0-100) pg/ml Total Protein 7.4 (6.0-8.3) gm/dl Albumin 4.1 (3.4-5.0) gm/dl Globulin 3.3 (2.5-4.0) gm/dl Albumin/Globulin Ratio 1.2 (0.9-2) Procalcitonin < 0.02 (0-0.5) ng/ml Adenovirus (PCR) Not Detected (NotDetected) B. pertussis DNA (PCR) Not Detected (NotDetected) B.parapertussis DNA PCR Not Detected (NotDetected) C. pneumoniae DNA (PCR) Not Detected (NotDetected) Coronavirus OC43 (PCR) Not Detected (NotDetected) Coronavirus HKU1 (PCR) Not Detected (NotDetected) Coronavirus 229E (PCR) Not Detected (NotDetected) SARS-CoV-2 (PCR) Not Detected (NotDetected) Coronavirus NL63 (PCR) Not Detected (NotDetected) Human Metapneumovir PCR Not Detected (NotDetected) Influenza Type A (PCR) Not Detected (NotDetected) Influenza Type B (PCR) Not Detected (NotDetected) M. pneumoniae (PCR) Not Detected (NotDetected) Parainfluenza 1 (PCR) Not Detected (NotDetected) Parainfluenza 2 (PCR) Not Detected (NotDetected) Parainfluenza 3 (PCR) Not Detected (NotDetected) Parainfluenza 4 (PCR) Not Detected (NotDetected) RSV (PCR) Not Detected (NotDetected) Entero/Rhino (PCR) Not Detected (NotDetected) 10/01/24 Range/Units 11:58 WBC (4.8-10.8) K/ul RBC (4.70-6.10) M/uL Hgb (14.0-18.0) g/dl Hct (42.0-52.0) % MCV (80.0-100.0) fL MCH (25.0-34.0) pg MCHC (32.0-36.0) g/dL RDW Std Deviation (36.4-46.3) fL RDW Coeff of Costa (11.5-14.5) % Plt Count (130-400) K/uL MPV (9.4-12.4) fL Immature Gran % (Auto) % Neut % (Auto) % Lymph % (Auto) % Bartholomew % (Auto) % Eos % (Auto) % Baso % (Auto) % Neut # (Auto) (1.40-6.50) K/uL Lymph # (Auto) (1.20-3.40) K/uL Bartholomew # (Auto) (0.11-0.59) K/uL Eos # (Auto) (0.00-0.50) K/uL Baso # (Auto) (0.00-0.20) K/uL Immature Gran # (Auto) (0.01-0.20) K/uL PT (9.0-12.0) Seconds INR (0.9-1.1) APTT (21-31) Seconds PTT Ratio Sodium (136-145) mmol/L Potassium (3.5-5.1) mmol/L Chloride (98-107) mmol/L Carbon Dioxide (21-32) mmol/L Anion Gap (3-11) BUN (6-23) mg/dl Creatinine (0.6-1.4) mg/dl Est Cr Clr Drug Dosing eGFR BUN/Creatinine Ratio (10-20) Glucose (70-99(Fasting)) mg/dl Lactate (0.4-2.0) mmol/L Calcium (8.6-10.3) mg/dl Total Bilirubin (0.2-1.0) mg/dl AST (13-39) U/L ALT (7-52) U/L Alkaline Phosphatase (34-104) U/L Troponin I High Sens (0-20) pg/ml B-Natriuretic Peptide 251 H (0-100) pg/ml Total Protein (6.0-8.3) gm/dl Albumin (3.4-5.0) gm/dl Globulin (2.5-4.0) gm/dl Albumin/Globulin Ratio (0.9-2) Procalcitonin (0-0.5) ng/ml Adenovirus (PCR) (NotDetected) B. pertussis DNA (PCR) (NotDetected) B.parapertussis DNA PCR (NotDetected) C. pneumoniae DNA (PCR) (NotDetected) Coronavirus OC43 (PCR) (NotDetected) Coronavirus HKU1 (PCR) (NotDetected) Coronavirus 229E (PCR) (NotDetected) SARS-CoV-2 (PCR) (NotDetected) Coronavirus NL63 (PCR) (NotDetected) Human Metapneumovir PCR (NotDetected) Influenza Type A (PCR) (NotDetected) Influenza Type B (PCR) (NotDetected) M. pneumoniae (PCR) (NotDetected) Parainfluenza 1 (PCR) (NotDetected) Parainfluenza 2 (PCR) (NotDetected) Parainfluenza 3 (PCR) (NotDetected) Parainfluenza 4 (PCR) (NotDetected) RSV (PCR) (NotDetected) Entero/Rhino (PCR) (NotDetected) Administered Medications Enoxaparin Sodium (Enoxaparin Inj 40 Mg/0.4 Ml Syr) 40 mg SQ Q24H NEVIN Stop: 10/31/24 15:59 Last Admin: 10/01/24 17:59 Dose: 40 mg Documented By: JARON Ampicillin Sodium/Sulbactam Sodium (Unasyn) 3,000 mg in 100 mls @ 200 mls/hr IV Q6H NEVIN Stop: 10/06/24 18:59 Last Infusion: 10/01/24 18:34 Dose: Infused Documented By: Admin: 10/01/24 17:59 Dose: 200 mls/hr Documented By: JARON Insulin Aspart (Insulin Aspart Per Unit Charge) 0 units SC ACHS NEVIN Stop: 10/31/24 16:29 Last Admin: 10/01/24 17:40 Dose: Not Given Documented By: JARON Co-signed By: HEL Discontinued Medications Albuterol (Albut/Ipratrop 3mg/0.5mg Neb 3 Ml Vial) 3 ml NEB NOW STA; Protocol Stop: 10/01/24 12:15 Last Admin: 10/01/24 13:21 Dose: 3 ml Documented By: SHARDA Furosemide (Furosemide Inj 20 Mg/2 Ml Vial) 20 mg IV ONE ONE Stop: 10/01/24 12:15 Last Admin: 10/01/24 13:17 Dose: 20 mg Documented By: SHARDA Piperacillin Sod/Tazobactam Sod (Zosyn) 4.5 gm in 100 mls @ 200 mls/hr IV NOW ONE; Protocol Stop: 10/01/24 12:43 Last Infusion: 10/01/24 13:48 Dose: Infused Documented By: Admin: 10/01/24 13:18 Dose: 200 mls/hr Documented By: SHARDA Imaging Data Radiologist's Impression: Chest X-Ray 10/01/24 10:23 XR chest 1V portable CLINICAL HISTORY: Shortness of breath. Cough. COMPARISON STUDY: Chest radiograph September 19, 2021. Chest CT September 20, 2021. FINDINGS: There is no pneumothorax. A small left pleural effusion is present. Moderate bibasilar opacities are noted. Cardiomegaly with mild interstitial thickening. No pneumothorax. The patient is rotated. IMPRESSION: 1. Moderate bibasilar opacities suggestive of pneumonia or aspiration pneumonitis. Radiographic follow-up is recommended. 2. Cardiomegaly with mild interstitial pulmonary edema. 3. Small left pleural effusion. ACT 112: Negative or not required by law. Electronically signed by: Ben Guerra M.D. 10/01/2024 11:41 AM Discharge Plan Visit Data Chief Complaint: Illness Stated Complaint: ILLNESS, COUGH, EAR PAIN ED Provider: Kyrie Blanc Discharge Problem: Aspiration pneumonia, (HFpEF) heart failure with preserved ejection fraction, Leukocytosis Patient Disposition: Admitted As Inpatient Discharge Instructions Interventions: ED Discharge Assessment Last Done: 10/01/24 14:35 Discharge Problem: Aspiration pneumonia Qualifiers: Aspiration pneumonia type: unspecified Laterality: bilateral Lung location: u nspecified part of lung Qualified Code(s): J69.0 - Pneumonitis due to inhalation of food and vomit (HFpEF) heart failure with preserved ejection fraction Qualifiers: Heart failure chronicity: acute on chronic Qualified Code(s): I50.33 - Acute on chronic diastolic (congestive) heart failure Leukocytosis Qualifiers: Leukocytosis type: unspecified Qualified Code(s): D72.829 - Elevated white blood cell count, unspecified
[2024-10-01 11:41] LABS: Adenovirus PCR Not Detected (NotDetected); Bordetella parapertussis PCR Not Detected (NotDetected); Bordetella pertussis PCR Not Detected (NotDetected); Chlamydia pneumoniae PCR Not Detected (NotDetected); Coronavirus 229E PCR Not Detected (NotDetected); Coronavirus CoV-2 (COVID19)PCR Not Detected (NotDetected); Coronavirus HKU1 PCR Not Detected (NotDetected); Coronavirus NL63 PCR Not Detected (NotDetected); Coronavirus OC43PCR Not Detected (NotDetected); Human Metapneumovirus PCR Not Detected (NotDetected); Influenza A PCR Not Detected (NotDetected); Influenza B PCR Not Detected (NotDetected); Mycoplasma pneumoniae PCR Not Detected (NotDetected); Parainfluenza Virus 1 PCR Not Detected (NotDetected); Parainfluenza Virus 2 PCR Not Detected (NotDetected); Parainfluenza Virus 3 PCR Not Detected (NotDetected); Parainfluenza Virus 4 PCR Not Detected (NotDetected); Respiratory Syncytial VirusPCR Not Detected (NotDetected); Rhinovirus/Enterovirus PCR Not Detected (NotDetected)
--- NOTE | 2024-10-01 11:42 | XRay Report ---
XR chest 1V portable CLINICAL HISTORY: Shortness of breath. Cough. COMPARISON STUDY: Chest radiograph September 19, 2021. Chest CT September 20, 2021. FINDINGS: There is no pneumothorax. A small left pleural effusion is present. Moderate bibasilar opac ities are noted. Cardiomegaly with mild interstitial thickening. No pneumothorax. The patient is rota catalino. IMPRESSION: 1. Moderate bibasilar opacities suggestive of pneumonia or aspiration pneumonitis. Radiographic follo w-up is recommended. 2. Cardiomegaly with mild interstitial pulmonary edema. 3. Small left pleural effusion. ACT 112: Negative or not required by law. Electronically signed by: Ben Guerra M.D. 10/01/2024 11:41 AM
[2024-10-01] MEDS: FUROSEMIDE INJ 20 MG/2 ML VIAL IV ONE (13:17)
[2024-10-01] MEDS: PIPERACILLIN/TAZOBACTAM 4.5 GM/100 ML BAG IV ONE (13:18)
[2024-10-01] MEDS: ALBUT/IPRATROP 3MG/0.5MG NEB 3 ML VIAL NEB STA (13:21)
--- NOTE | 2024-10-01 13:27 | History & Physical Report ---
Date of Service October 01, 2024 Assessment & Plan (1) PNA (pneumonia): Plan: Aspiration pneumonia Fever of 100.4 at home, cough with increased butyrin production x 1 day, significantly more weak than his baseline in the last 1 to 2 days Leukocytosis 22, chest x-ray with evidence of bilateral pneumonia in addition to mild interstitial pulmonary edema and fluid overload BioFire is negative Not meet sepsis criteria on admission No known drug allergies, no history of MRSA Will obtain MRSA nare and narrow Zosyn to Unasyn in anticipation of possible Augmentin as outpatient option. Will continue anaerobe coverage given possibility for aspiration based on distribution (2) (HFpEF) heart failure with preserved ejection fraction: Plan: Acute heart failure with preserved ejection fraction Echo 08/2021 with low normal EF 50-55% Patient does show evidence of pulmonary edema on his x-ray with additional left effusion, although denies orthopnea. He has had problems with chronic leg edema with a venous stasis component. BNP elevated No chest pain or chest pressure or anginal symptoms. Troponin is normal Will continue diuresis with Lasix 20 mg IV twice daily, low-salt diet, strict measurement of intake output (3) Weakness: Plan: PT/OT pending. Suspect acute on chronic weakness due to pneumonia and CHF (4) Enlarged prostate without lower urinary tract symptoms (luts): (5) Prediabetes: Plan: Prediabetes No meds at home - AC/HS BSG checks - Conservative CF while inpatient. If uncontrolled bsgs, switch to weigh tbased basal bolus Plan Stable issues Anemia: Baseline 12-13. Hgb 12 on admit, no acute bleeding. No acute change - Hyperlipidemia: Statin continued DVT prophylaxis: Dose reduced Lovenox CODE STATUS: Full code Disposition: Medical/telemetry for CHF component Diet: DM 2, heart healthy History of Present Illness Primary Care Provider: Attila Benitez DO Luca Chavez is an 84-year-old male with a past medical history of hypothyroidism, hypertension, hyperlipidemia, BPH, prediabetes who was recommended for admission for aspiration pneumonia 84-year-old male who presents with 1 day of increased fatigue, nausea, productive cough for dark sputum, and shortness of breath. Seen w who reports predominant sx is junky cough and severe weakness much worse than his normal. Did fall a few days ago but did not lose conciousness. Patient was hypoxic in the ER requiring 2 L nasal cannula, he is not on oxygen prior to admission. No chills. +fever 100.4 last night. No fever this morning. Took tylenol last night, no tylenol this morning. Took lasix today. +leg swelling chronically over the last few weeks. Hx pEF. Denies orthopnea. Denies chest pain/chest pressure. Denies syncope/presycope. Medical History: Reviewed Medications: Reviewed Surgical History: Reviewed Family history: Reviewed Allergies: Reviewed. NKDA. Social History: No etoh. Former chew, quit >1 yr ago. Code Status: Full Allergies Allergy/AdvReac Type Severity Reaction Status Date / Time No Known Allergies Allergy Verified 09/01/24 09:08 Home Medications Medication Instructions Recorded Confirmed Type Wheelchair (Manual) #1 ea 07/10/20 09/01/24 Rx melatonin 5 mg tablet 5 mg PO HS 05/05/22 10/01/24 History Cbd Gummy 15 mg PO QPM 03/23/24 10/01/24 History losartan 100 mg tablet 100 mg PO QPM 03/23/24 10/01/24 History plum extract 1,000 mg tablet 1,000 mg PO QPM 03/23/24 10/01/24 History simvastatin 20 mg tablet 20 mg PO QPM #90 tabs 04/25/24 10/01/24 Rx furosemide 20 mg tablet 20 mg PO QAM #90 tabs 05/31/24 10/01/24 Rx gabapentin 100 mg capsule 300 mg (3 x 100 mg) PO DAILY 90 06/23/24 10/01/24 Rx days #270 caps Past Med/Surg History Problem List (Updated 10/01/24 @ 13:38 by Luca Cuellar MD) (HFpEF) heart failure with preserved ejection fraction PNA (pneumonia) Leg edema Right ear impacted cerumen Prediabetes Elevated serum creatinine Weakness (Acute) Impaired fasting glucose Postherpetic neuralgia Numbness of left lower extremity (Chronic) Tubular adenoma of colon (Acute) Lumbar disc disorder with myelopathy (Chronic) Lumbar canal stenosis (Chronic) Hyperthyroidism (Chronic) Hypertension (Chronic) Hyperlipidemia (Chronic) Herpes zoster without complication (Acute) Gynecomastia, male (Acute) Enlarged prostate without lower urinary tract symptoms (luts) (Acute) Anemia (Chronic) hx Low TSH level hx BPH (benign prostatic hyperplasia) (Chronic) Chronic back pain Right knee DJD Left knee DJD (Acute 08/03/14) Medical History Lumbar canal stenosis DJD (degenerative joint disease) of knee Postherpetic neuralgia hx, no issues currently History of colon polyps Hyperthyroidism hx HTN (hypertension) Hyperlipidemia Chronic back pain Anemia hx BPH (benign prostatic hyperplasia) hx- s/p TURP Prediabetes diet controlled, no meds History of anesthesia reaction after knee replacement had issues with being able to void--had to have prostate surgery Dizziness hx of--per happens when he is dehydrated, no issues recently Syncope hx--per happens when pt is dehydrated, no issues recently Compression fracture of thoracic vertebra hx Surgical History Hx of cataract extraction History of colonoscopy History of tooth extraction Hx of transurethral resection of prostate H/O inguinal hernia repair H/O laminectomy H/O total knee replacement Family History Brother Prostate cancer Schizophrenia Stroke Mother Heart disease Other No family history of adverse response to anesthesia No pertinent family history Denies family history of Ovarian cancer Myocardial infarction Breast cancer Colorectal cancer Social History (Updated 05/31/24 @ 10:07 by Ana Fontenot LPN) Smoking Status: Never smoker Tobacco Type: Smokeless Tobacco (Dip or Chew) Second Hand Exposure: No; Do You Dip or Chew Tobacco: No (chews (advised on policy)); Hx Alcohol Use: No Hx Substance Use: No Preferred Language: Lithuanian Communication Ability: Effective Visual Impairment: No Limitations Hearing Ability: Normal Chief Scientific Officer Required: No Beliefs That Will Affect Care: None marital status: Current Living Situation: Spouse current occupational status: retired current occupation: worked on his dairy farm, 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 NAD. Cooperative. MASHPEE. HEENT: Atraumatic, normocephalic. Vision/hearing grossly intact Pulm: Diffuse rhonchi, basilar crackles. On nebulizer at time of visit Cardiac: RRR, -mrg. Radial pulses intact and symmetrical. Abdominal: Nontender, nondistended, soft. BS present. Results & Data Results & Data Vital Signs (Past 12 Hours) Vital Signs Temp Pulse Resp BP Pulse Ox O2 Del Method O2 Flow Rate 10/01/24 11:49 85 10/01/24 11:30 83 18 10/01/24 11:06 81 17 188/112 H 95 Nasal Cannula 2 10/01/24 10:53 88 L Nasal Cannula 0 10/01/24 10:14 37.2 C 91 H 21 161/86 H 91 Room Air PG Care Time/CCT Total # of Minutes Spent Total Time Spent with Patient: Total time spent is greater than 50% in coordination of care (as documented) at patient's floor/unit and/or counseling patient: Coding Level of Care Code 00956 INT INP/OBS CARE 3/75MIN Diagnoses PNA (pneumonia) J18.9 (HFpEF) heart failure with preserved ejection fraction I50.30 Weakness R53.1 Enlarged prostate without lower urinary tract symptoms (luts) N40.0 Prediabetes R73.03
[2024-10-01] MEDS ORDERED: CARBOHYDRATES FOR HYPOGLYCEMIA PO PRN (15:06)
[2024-10-01] MEDS ORDERED: GLUCAGON FOR INJ 1 MG VIAL SQ PRN (15:06)
[2024-10-01] MEDS ORDERED: GLUCOSE 40% GEL 15 GM TUBE PO PRN (15:06)
[2024-10-01] MEDS ORDERED: GLUCOSE 10 TAB/TUBE PO PRN (15:06)
[2024-10-01] MEDS ORDERED: DEXTROSE 50% 50 ML SYRINGE IV PRN (15:06)
[2024-10-01] MEDS ORDERED: ENOXAPARIN INJ 30 MG/0.3 ML SYR SQ SCH (15:30)
[2024-10-01] MEDS ORDERED: Nursing to Pharmacy Communication SCH (17:30)
[2024-10-01] MEDS: INSULIN ASPART PER UNIT CHARGE SC SCH (17:40)
[2024-10-01] MEDS: ENOXAPARIN INJ 40 MG/0.4 ML SYR SQ SCH (17:59)
[2024-10-01] MEDS: AMPICILLIN/SULBACTAM SOD 3,000 MG/100 ML BAG IV SCH (17:59)
[2024-10-01] MEDS: ACETAMINOPHEN 325 MG TAB PO PRN (20:19)
[2024-10-01] MEDS: SIMVASTATIN 20 MG TAB PO SCH (20:20)
[2024-10-01] MEDS: LOSARTAN POTASSIUM 50 MG TAB PO SCH (20:20)
[2024-10-01] MEDS: MELATONIN 3 MG TAB PO SCH (20:21)
[2024-10-01] MEDS ORDERED: ALBUTEROL HFA 8 GM INHALER INH PRN (21:27)
[2024-10-01] MEDS: ALBUT/IPRATROP 3MG/0.5MG NEB 3 ML VIAL NEB PRN (22:02)
[2024-10-02 07:10] LABS: Basophils # (auto) 0.05 K/uL (0.00-0.20); Basophils % (auto) 0.4 %; Eosinophils # (auto) 0.12 K/uL (0.00-0.50); Eosinophils % (auto) 0.9 %; Hematocrit (blood only) 30.4 % (42.0-52.0); Hemoglobin 10.3 g/dl (14.0-18.0); Immature Granulocytes # (auto) 0.08 K/uL (0.01-0.20); Immature Granulocytes % (auto) 0.6 %; Lymphocytes # (auto) 1.94 K/uL (1.20-3.40); Lymphocytes % (auto) 13.8 %; Mean Corpuscular Hemoglobin 29.9 pg (25.0-34.0); Mean Corpuscular Hgb Conc 33.9 g/dL (32.0-36.0); Mean Corpuscular Volume 88.1 fL (80.0-100.0); Mean Platelet Volume 9.4 fL (9.4-12.4); Monocytes # (auto) 1.39 K/uL (0.11-0.59); Monocytes % (auto) 9.9 %; Neutrophils # (auto) 10.46 K/uL (1.40-6.50); Neutrophils % (auto) 74.4 %; Platelet Count 236 K/uL (130-400); RDW Coefficient of Variation 13.8 % (11.5-14.5); RDW Standard Deviation 44.5 fL (36.4-46.3); Red Blood Count 3.45 M/uL (4.70-6.10); White Blood Count 14.04 K/ul (4.8-10.8)
[2024-10-02] MEDS: SODIUM CHLOR 7% 4 ML NEB NEB SCH (07:30)
[2024-10-02 07:39] LABS: BUN Creatinine Ratio 27.1 (10-20); Calcium 8.8 mg/dl (8.6-10.3); Creatinine Clr Calc Pharmacy 63.2 ml/min; Potassium 3.7 mmol/L (3.5-5.1)
--- NOTE | 2024-10-02 07:54 | Hospitalist Progress Note ---
Date of Service October 02, 2024 Assessment & Plan (1) PNA (pneumonia): Plan: Aspiration pneumonia Fever of 100.4 at home, , chest x-ray with evidence of bilateral pneumonia in addition to mild interstitial pulmonary edema and fluid overload BioFire is negative Unasyn continues, preliminary blood cx are gram positive in chains, repeat cx on 10/03 (2) (HFpEF) heart failure with preserved ejection fraction: Plan: Acute heart failure with preserved ejection fraction Echo 08/2021 with low normal EF 50-55% Patient does show evidence of pulmonary edema on his x-ray with additional left effusion, chronic leg edema with a venous stasis component. diuresis with Lasix 20 mg IV twice daily, low-salt diet, strict measurement of intake output (3) Weakness: Plan: metabolic encephalopathy from pneumonia poa PT/OT pending. Suspect acute on chronic weakness due to metabolic encephalopahty from pneumonia and CHF (4) Prediabetes: Plan: Prediabetes No meds at home - AC/HS BSG checks Plan Stable issues -BPH without symptoms Anemia: Baseline 12-13. Hgb 12 on admit, no acute bleeding. No acute change - Hyperlipidemia: Statin continued DVT prophylaxis: Dose reduced Lovenox CODE STATUS: Full code Admission and Anticipated Discharge Date Admission Date: October 01, 2024 Subjective pt seen in company of , notes increased cough with eating blood culture positive also MALDI suggests strep, preliminary strep is on unasyn ,will change await sensitivities, and confirm blood culture Physical Exam Physical Exam: pt has been weakened lately cough with eating lungs diminished more on left than right cardiac is regular Results & Data Results & Data Vital Signs (Past 12 Hours) Vital Signs Temp Pulse Pulse Resp BP Pulse Ox O2 Del Method 10/02/24 07:32 88 20 95 Nasal Cannula 10/02/24 02:51 99.0 F 60 18 143/73 H 96 Nasal Cannula 10/02/24 00:15 92 H 10/02/24 00:14 Nasal Cannula 10/01/24 23:00 99.0 F 66 18 101/62 95 Nasal Cannula 10/01/24 22:02 89 20 94 Nasal Cannula O2 Flow Rate 10/02/24 07:32 3 10/02/24 02:51 3 10/02/24 00:15 10/02/24 00:14 3 10/01/24 23:00 3 10/01/24 22:02 3 Laboratory Results review cbc review blood culture updated at bedside PG Care Time/CCT Total # of Minutes Spent Total Time Spent with Patient: Total time spent is greater than 50% in coordination of care (as documented) at patient's floor/unit and/or counseling patient: Coding Level of Care Code 33145 SUB INP/OBS CARE 3/50MIN Diagnoses PNA (pneumonia) J18.9 (HFpEF) heart failure with preserved ejection fraction I50.33 Heart failure chronicity: acute on chronic Weakness R53.1 Prediabetes R73.03 (2) (HFpEF) heart failure with preserved ejection fraction Heart failure chronicity: acute on chronic Qualified Code(s): I50.33 - Acute on chronic diastolic (congestive) heart failure
[2024-10-02] MEDS: FUROSEMIDE 40 MG/4 ML VIAL IV SCH (08:58)
[2024-10-02] MEDS: GABAPENTIN 300 MG CAP PO SCH (08:58)
[2024-10-02 13:58] LABS: A calco-baum cmplx NotReported Not Detected (NotDetected); Bact fragilis Not Reported Not Detected (NotDetected); Blood Culture Id Panel See PCR Comment (NotDetected); C auris Not Reported Not Detected (NotDetected); Calbicans Not Reported Not Detected (NotDetected); Candida glabrata Not Reported Not Detected (NotDetected); Candida krusei Not Reported Not Detected (NotDetected); Cneoformans/gatti Not Reported Not Detected (NotDetected); Cparapsilosis Not Reported Not Detected (NotDetected); E cloacae compx Not Reported Not Detected (NotDetected); Efaecalis Not Reported Not Detected (NotDetected); Efaecium Not Reported Not Detected (NotDetected); Enterobacterales Not Reported Not Detected (NotDetected); Escherichia coli Not Reported Not Detected (NotDetected); H influenzae Not Reported Not Detected (NotDetected); K aerogenes Not Reported Not Detected (NotDetected); Koxytoca Not Reported Not Detected (NotDetected); Kpneumoniae grp Not Reported Not Detected (NotDetected); Lmonocyt Not Reported Not Detected (NotDetected); N meningitidis Not Reported Not Detected (NotDetected); P aeruginosa Not Reported Not Detected (NotDetected); Proteus spp Not Reported Not Detected (NotDetected); Salmonella spp Not Reported Not Detected (NotDetected); Staph lugdunensis Not Reported Not Detected (NotDetected); Staph spp. Not Reported Not Detected (NotDetected); Staphaureus Not Reported Not Detected (NotDetected); Staphepi Not Reported Not Detected (NotDetected); Stenmaltophilia Not Reported Not Detected (NotDetected); Strep agal(GrpB) Not Reported Not Detected (NotDetected); Strep pneum Not Reported Not Detected (NotDetected); Strep pyog (GrpA) Not Reported Not Detected (NotDetected); Strep spp Not Reported DETECTED (NotDetected)
[2024-10-02 14:23] LABS: Streptococcus spp DETECTED (NotDetected)
[2024-10-03 06:29] LABS: Basophils # (auto) 0.04 K/uL (0.00-0.20); Basophils % (auto) 0.3 %; Eosinophils # (auto) 0.31 K/uL (0.00-0.50); Eosinophils % (auto) 2.7 %; Hematocrit (blood only) 32.5 % (42.0-52.0); Hemoglobin 10.8 g/dl (14.0-18.0); Immature Granulocytes # (auto) 0.06 K/uL (0.01-0.20); Immature Granulocytes % (auto) 0.5 %; Lymphocytes # (auto) 1.66 K/uL (1.20-3.40); Lymphocytes % (auto) 14.4 %; Mean Corpuscular Hemoglobin 29.7 pg (25.0-34.0); Mean Corpuscular Hgb Conc 33.2 g/dL (32.0-36.0); Mean Corpuscular Volume 89.3 fL (80.0-100.0); Mean Platelet Volume 9.4 fL (9.4-12.4); Monocytes # (auto) 1.11 K/uL (0.11-0.59); Monocytes % (auto) 9.6 %; Neutrophils # (auto) 8.34 K/uL (1.40-6.50); Neutrophils % (auto) 72.5 %; Platelet Count 273 K/uL (130-400); RDW Coefficient of Variation 13.5 % (11.5-14.5); RDW Standard Deviation 44.4 fL (36.4-46.3); Red Blood Count 3.64 M/uL (4.70-6.10); White Blood Count 11.52 K/ul (4.8-10.8)
[2024-10-03 06:37] LABS: BUN Creatinine Ratio 34.3 (10-20); Potassium 3.7 mmol/L (3.5-5.1)
--- NOTE | 2024-10-03 12:48 | Fluoroscopy Report ---
FL video swallow CLINICAL HISTORY: 84 years-old Male with assess for aspiration. Dysphagia with possible aspiration TECHNIQUE: Video fluoroscopic evaluation of swallowing was performed in the AP and lateral projection s by the speech pathology staff. The patient is fed varying consistencies of barium. FLUOROSCOPY TIME: 1.40 minutes. 2687 images were submitted. 12.4 mGy COMPARISON STUDY: None. FINDINGS: Hyoid excursion and epiglottic deflection is mostly within normal limits. No definite aspir ation identified. There is laryngeal penetration with thin liquid barium. Mild esophageal dysmotility . IMPRESSION: 1. Laryngeal penetration with thin liquid barium. No aspiration identified. 2. Please see the speech pathologist report for detailed findings and recommendations. ACT 112: Negative or not required by law. Electronically signed by: Feliciano Pretty M.D. 10/03/2024 12:47 PM
--- NOTE | 2024-10-03 15:28 | Electrocardiogram Report ---
Test Reason : Blood Pressure : */* mmHG Vent. Rate : 85 BPM Atrial Rate : 85 BPM P-R Int : 232 ms QRS Dur : 108 ms QT Int : 380 ms P-R-T Axes : 23 -11 28 degrees QTcB Int : 452 ms Sinus rhythm with 1st degree A-V block Inferior infarct , age undetermined Abnormal ECG When compared with ECG of 19-Sep-2021 22:59, Premature ventricular complexes are no longer Present AL interval has increased Inferior infarct is now Present Confirmed by Arthur Barraza ([id number]) on 10/03/2024 3:28:33 PM Referred By: REFERRED SELF Confirmed By: Arthur Barraza
--- NOTE | 2024-10-03 22:31 | Hospitalist Progress Note ---
Date of Service October 03, 2024 Assessment & Plan (1) PNA (pneumonia): Plan: Aspiration pneumonia Fever of 100.4 at home, , chest x-ray with evidence of bilateral pneumonia in addition to mild interstitial pulmonary edema and fluid overload BioFire is negative Unasyn continues, preliminary blood cx are gram positive in chains, repeat cx on 10/03 pending. (2) (HFpEF) heart failure with preserved ejection fraction: Plan: Acute heart failure with preserved ejection fraction Echo 08/2021 with low normal EF 50-55% Patient does show evidence of pulmonary edema on his x-ray with additional left effusion, chronic leg edema with a venous stasis component. diuresis with Lasix 20 mg IV twice daily, low-salt diet, strict measurement of intake output (3) Weakness: Plan: metabolic encephalopathy from pneumonia poa PT/OT pending. Suspect acute on chronic weakness due to metabolic encephalopahty from pneumonia and CHF (4) Prediabetes: Plan: Prediabetes No meds at home - AC/HS BSG checks Plan Stable issues -BPH without symptoms Anemia: Baseline 12-13. Hgb 12 on admit, no acute bleeding. No acute change - Hyperlipidemia: Statin continued DVT prophylaxis: Dose reduced Lovenox CODE STATUS: Full code Admission and Anticipated Discharge Date Admission Date: October 01, 2024 Subjective Patient reports no new symptoms. Physical Exam Physical Exam: Patient has n new complaints. cough with eating lungs diminished more on left than right cardiac is regular Results & Data Results & Data Vital Signs (Past 12 Hours) Vital Signs Temp Pulse Pulse Resp BP BP Pulse Ox 10/03/24 20:18 76 18 91 10/03/24 19:22 37.1 C 82 18 172/78 H 90 10/03/24 16:54 10/03/24 15:31 36.4 C L 74 18 168/82 H 92 10/03/24 15:00 10/03/24 14:51 65 10/03/24 11:19 36.4 C L 85 20 129/70 96 O2 Del Method O2 Del Method O2 Flow Rate O2 Flow Rate 10/03/24 20:18 Nasal Cannula 3 10/03/24 19:22 Nasal Cannula 3 10/03/24 16:54 Nasal Cannula 3 10/03/24 15:31 Nasal Cannula 3 10/03/24 15:00 Nasal Cannula 3 10/03/24 14:51 10/03/24 11:19 Nasal Cannula 3 PG Care Time/CCT Total # of Minutes Spent Total Time Spent with Patient: Total time spent is greater than 50% in coordination of care (as documented) at patient's floor/unit and/or counseling patient: Coding Level of Care Code 89043 SUB INP/OBS CARE 2/35MIN Diagnoses PNA (pneumonia) J18.9 (HFpEF) heart failure with preserved ejection fraction I50.33 Heart failure chronicity: acute on chronic Weakness R53.1 Prediabetes R73.03 (2) (HFpEF) heart failure with preserved ejection fraction Heart failure chronicity: acute on chronic Qualified Code(s): I50.33 - Acute on chronic diastolic (congestive) heart failure
[2024-10-04 06:41] LABS: Basophils # (auto) 0.04 K/uL (0.00-0.20); Basophils % (auto) 0.4 %; Eosinophils % (auto) 5.3 %; Hematocrit (blood only) 32.8 % (42.0-52.0); Immature Granulocytes # (auto) 0.04 K/uL (0.01-0.20); Immature Granulocytes % (auto) 0.4 %; Lymphocytes % (auto) 19.2 %; Mean Corpuscular Hemoglobin 29.8 pg (25.0-34.0); Mean Corpuscular Hgb Conc 33.5 g/dL (32.0-36.0); Mean Corpuscular Volume 88.9 fL (80.0-100.0); Mean Platelet Volume 9.3 fL (9.4-12.4); Monocytes # (auto) 0.98 K/uL (0.11-0.59); Monocytes % (auto) 10.5 %; Neutrophils % (auto) 64.2 %; Platelet Count 282 K/uL (130-400); RDW Coefficient of Variation 13.4 % (11.5-14.5); RDW Standard Deviation 43.8 fL (36.4-46.3); Red Blood Count 3.69 M/uL (4.70-6.10); White Blood Count 9.36 K/ul (4.8-10.8)
[2024-10-04 07:03] LABS: BUN Creatinine Ratio 34.1 (10-20); C Reactive Protein 7.87 mg/dl (0-0.5); Calcium 8.7 mg/dl (8.6-10.3); Creatinine Clr Calc Pharmacy 73.4 ml/min; Potassium 3.5 mmol/L (3.5-5.1)
--- NOTE | 2024-10-04 11:00 | XRay Report ---
XR chest 2V PA/lateral HISTORY: 84 years-old Male pneumonia COMPARISON: 10/01/2024 TECHNIQUE: AP view the chest FINDINGS: Cardiac silhouette is enlarged. No overt pulmonary edema. No pneumothorax or large pleural effusion. Blunting of the costophrenic angles may represent trace effusions. There is improved aeration of left lung base with mild persistent ill-defined interstitial and alveolar opacities. Bones appear grossly intact. IMPRESSION: 1. Improved aeration of left lung base with mild persistent opacities suggestive of resolving pneumon ia. 2. Cardiomegaly without pulmonary edema. 3. Trace pleural effusions. ACT 112: Negative or not required by law. The above report was generated using voice recognition software. It may contain grammatical, syntax o r spelling errors. Electronically signed by: Feliciano Pretty M.D. 10/04/2024 10:59 AM
--- NOTE | 2024-10-04 22:30 | Hospitalist Progress Note ---
Date of Service October 04, 2024 Assessment & Plan (1) PNA (pneumonia): Plan: Aspiration pneumonia Fever of 100.4 at home, , chest x-ray with evidence of bilateral pneumonia in addition to mild interstitial pulmonary edema and fluid overload BioFire is negative Unasyn continues, preliminary blood cx are gram positive in chains, not a contaminant. repeat cx on 10/03 pending. ordered TTE. (2) (HFpEF) heart failure with preserved ejection fraction: Plan: Acute heart failure with preserved ejection fraction Echo 08/2021 with low normal EF 50-55% Patient does show evidence of pulmonary edema on his x-ray with additional left effusion, chronic leg edema with a venous stasis component. diuresis with Lasix 20 mg IV twice daily, low-salt diet, strict measurement of intake output (3) Weakness: Plan: metabolic encephalopathy from pneumonia poa PT/OT pending. Suspect acute on chronic weakness due to metabolic e ncephalopahty from pneumonia and CHF (4) Prediabetes: Plan: Prediabetes No meds at home - AC/HS BSG checks Plan Stable issues -BPH without symptoms Anemia: Baseline 12-13. Hgb 12 on admit, no acute bleeding. No acute change - Hyperlipidemia: Statin continued DVT prophylaxis: Dose reduced Lovenox CODE STATUS: Full code Admission and Anticipated Discharge Date Admission Date: October 01, 2024 Subjective 84 yo male reports no new symptoms. Review of Systems Review of Systems: All systems reviewed & are unremarkable except as noted in HPI & below Physical Exam Physical Exam: Patient has no new complaints. cough with eating lungs diminished more on left than right cardiac is regular Results & Data Results & Data Vital Signs (Past 12 Hours) Vital Signs Temp Pulse Pulse Resp BP BP Pulse Ox 10/04/24 20:07 85 18 95 10/04/24 19:49 36.3 C L 66 18 185/77 H 97 10/04/24 15:26 36.3 C L 71 16 168/72 H 95 10/04/24 15:00 10/04/24 14:54 80 10/04/24 13:12 36.3 C L 77 16 166/79 H 95 10/04/24 10:58 36.6 C 66 12 144/74 H 96 O2 Del Method O2 Del Method O2 Flow Rate O2 Flow Rate 10/04/24 20:07 Nasal Cannula 2 10/04/24 19:49 Nasal Cannula 2 10/04/24 15:26 Room Air 3 10/04/24 15:00 Nasal Cannula 2 10/04/24 14:54 10/04/24 13:12 Nasal Cannula 3 10/04/24 10:58 Nasal Cannula 3 PG Care Time/CCT Total # of Minutes Spent Total Time Spent with Patient: Total time spent is greater than 50% in coordination of care (as documented) at patient's floor/unit and/or counseling patient: Coding Level of Care Code 14800 SUB INP/OBS CARE MIN Diagnoses PNA (pneumonia) J18.9 (HFpEF) heart failure with preserved ejection fraction I50.33 Heart failure chronicity: acute on chronic Weakness R53.1 Prediabetes R73.03 (2) (HFpEF) heart failure with preserved ejection fraction Heart failure chronicity: acute on chronic Qualified Code(s): I50.33 - Acute on chronic diastolic (congestive) heart failure
[2024-10-05 06:44] LABS: Hematocrit (blood only) 34.4 % (42.0-52.0); Hemoglobin 11.2 g/dl (14.0-18.0); Mean Corpuscular Hemoglobin 29.5 pg (25.0-34.0); Mean Corpuscular Hgb Conc 32.6 g/dL (32.0-36.0); Mean Corpuscular Volume 90.5 fL (80.0-100.0); Mean Platelet Volume 9.4 fL (9.4-12.4); Platelet Count 282 K/uL (130-400); RDW Coefficient of Variation 13.3 % (11.5-14.5); RDW Standard Deviation 43.9 fL (36.4-46.3); White Blood Count 8.89 K/ul (4.8-10.8)
[2024-10-05 07:07] LABS: BUN Creatinine Ratio 36.1 (10-20); C Reactive Protein 5.26 mg/dl (0-0.5); Calcium 9.2 mg/dl (8.6-10.3); Creatinine Clr Calc Pharmacy 72.6 ml/min; Potassium 3.9 mmol/L (3.5-5.1)
--- NOTE | 2024-10-05 21:19 | Hospitalist Progress Note ---
Date of Service October 05, 2024 Assessment & Plan (1) PNA (pneumonia): Plan: Aspiration pneumonia Fever of 100.4 at home, , chest x-ray with evidence of bilateral pneumonia in addition to mild interstitial pulmonary edema and fluid overload BioFire is negative Unasyn continues, preliminary blood cx are gram positive in chains, not a contaminant. repeat cx on 10/03: preliminary negative ordered TTE, not complete yet. In patient rehab was negative. (2) (HFpEF) heart failure with preserved ejection fraction: Plan: Acute heart failure with preserved ejection fraction Echo 08/2021 with low normal EF 50-55% Patient does show evidence of pulmonary edema on his x-ray with additional left effusion, chronic leg edema with a venous stasis component. diuresis with Lasix 20 mg IV twice daily, low-salt diet, strict measurement of intake output (3) Weakness: Plan: metabolic encephalopathy from pneumonia poa PT/OT pending. Suspect acute on chronic weakness due to metabolic encephalopahty from pneumonia and CHF (4) Prediabetes: Plan: Prediabetes No meds at home - AC/HS BSG checks Plan Stable issues -BPH without symptoms Anemia: Baseline 12-13. Hgb 12 on admit, no acute bleeding. No acute change - Hyperlipidemia: Statin continued DVT prophylaxis: Dose reduced Lovenox CODE STATUS: Full code Admission and Anticipated Discharge Date Admission Date: October 01, 2024 Subjective 84 yo male reports no new symptoms. He states he is feeling better. He has no new complaints. Review of Systems Review of Systems: All systems reviewed & are unremarkable except as noted in HPI & below Physical Exam Physical Exam: Patient has no new complaints. cough with eating lungs diminished more on left than right cardiac is regular Results & Data Results & Data Vital Signs (Past 12 Hours) Vital Signs Temp Pulse Pulse Resp BP BP Pulse Ox 10/05/24 19:47 68 19 93 10/05/24 19:28 36.5 C 86 18 151/80 H 93 10/05/24 15:04 36.5 C 74 18 180/78 H 94 10/05/24 15:00 10/05/24 14:39 75 10/05/24 11:42 37.1 C 76 20 144/75 H 97 10/05/24 10:39 O2 Del Method O2 Del Method O2 Flow Rate 10/05/24 19:47 Room Air 10/05/24 19:28 Room Air 10/05/24 15:04 Room Air 10/05/24 15:00 Room Air 10/05/24 14:39 10/05/24 11:42 Nasal Cannula 2 10/05/24 10:39 Nasal Cannula 2 PG Care Time/CCT Total # of Minutes Spent Total Time Spent with Patient: Total time spent is greater than 50% in coordination of care (as documented) at patient's floor/unit and/or counseling patient: Coding Level of Care Code 39119 SUB INP/OBS CARE 2/35MIN Diagnoses PNA (pneumonia) J18.9 (HFpEF) heart failure with preserved ejection fraction I50.33 Heart failure chronicity: acute on chronic Weakness R53.1 Prediabetes R73.03 (2) (HFpEF) heart failure with preserved ejection fraction Heart failure chronicity: acute on chronic Qualified Code(s): I50.33 - Acute on chronic diastolic (congestive) heart failure
[2024-10-06] MEDS: POLYETHYLENE (MIRALAX) 17 GM PACK PO PRN (05:42)
[2024-10-06 06:45] LABS: Hematocrit (blood only) 32.4 % (42.0-52.0); Mean Corpuscular Hemoglobin 29.9 pg (25.0-34.0); Mean Platelet Volume 9.4 fL (9.4-12.4); Platelet Count 295 K/uL (130-400); RDW Coefficient of Variation 13.2 % (11.5-14.5); RDW Standard Deviation 42.6 fL (36.4-46.3); Red Blood Count 3.68 M/uL (4.70-6.10); White Blood Count 9.56 K/ul (4.8-10.8)
[2024-10-06 07:16] LABS: Calcium 8.8 mg/dl (8.6-10.3); Potassium 3.9 mmol/L (3.5-5.1)
[2024-10-06 07:22] LABS: BUN Creatinine Ratio 30.1 (10-20); Creatinine Clr Calc Pharmacy 73.5 ml/min
--- NOTE | 2024-10-06 23:13 | Hospitalist Progress Note ---
Date of Service October 06, 2024 Assessment & Plan (1) PNA (pneumonia): Plan: Aspiration pneumonia Fever of 100.4 at home, , chest x-ray with evidence of bilateral pneumonia in addition to mild interstitial pulmonary edema and fluid overload BioFire is negative Unasyn continues, preliminary blood cx are gram positive in chains, not a contaminant. repeat cx on 10/03: preliminary negative ordered TTE, not complete yet. In patient rehab was denied. Awaiting placement from SNF Reviewed CBC, BMP on 10/06 (2) (HFpEF) heart failure with preserved ejection fraction: Plan: Acute heart failure with preserved ejection fraction Echo 08/2021 with low normal EF 50-55% Patient does show evidence of pulmonary edema on his x-ray with additional left effusion, chronic leg edema with a venous stasis component. diuresis with Lasix 20 mg IV twice daily, low-salt diet, strict measurement of intake output (3) Weakness: Plan: metabolic encephalopathy from pneumonia poa PT/OT pending. Suspect acute on chronic weakness due to metabolic encephalopahty from pneumonia and CHF (4) Prediabetes: Plan: Prediabetes No meds at home - AC/HS BSG checks Plan Stable issues -BPH without symptoms Anemia: Baseline 12-13. Hgb 12 on admit, no acute bleeding. No acute change - Hyperlipidemia: Statin continued DVT prophylaxis: Dose reduced Lovenox CODE STATUS: Full code Admission and Anticipated Discharge Date Admission Date: October 01, 2024 Subjective Patient reports no new symptoms. Review of Systems Review of Systems: All systems reviewed & are unremarkable except as noted in HPI & below Physical Exam Physical Exam: Patient has no new complaints. cough with eating lungs diminished more on left than right cardiac is regular Results & Data Results & Data Vital Signs (Past 12 Hours) Vital Signs Temp Pulse Pulse Resp BP BP Pulse Ox 10/06/24 20:26 70 17 173/76 H 92 10/06/24 19:45 36.7 C 56 L 18 95/63 L 93 10/06/24 19:35 71 18 91 10/06/24 15:24 36.4 C L 79 18 154/94 H 97 10/06/24 14:10 84 10/06/24 12:55 10/06/24 11:58 36.4 C L 84 16 144/73 H 96 O2 Del Method 10/06/24 20:26 Room Air 10/06/24 19:45 Room Air 10/06/24 19:35 Room Air 10/06/24 15:24 Room Air 10/06/24 14:10 10/06/24 12:55 Room Air 10/06/24 11:58 Room Air PG Care Time/CCT Total # of Minutes Spent Total Time Spent with Patient: Total time spent is greater than 50% in coordination of care (as documented) at patient's floor/unit and/or counseling patient: Coding Level of Care Code 16194 SUB INP/OBS CARE MIN Diagnoses PNA (pneumonia) J18.9 (HFpEF) heart failure with preserved ejection fraction I50.33 Heart failure chronicity: acute on chronic Weakness R53.1 Prediabetes R73.03 (2) (HFpEF) heart failure with preserved ejection fraction Heart failure chronicity: acute on chronic Qualified Code(s): I50.33 - Acute on chronic diastolic (congestive) heart failure
--- NOTE | 2024-10-07 15:56 | XCELERA ---
[id number]
--- NOTE | 2024-10-07 23:43 | Hospitalist Progress Note ---
Date of Service October 07, 2024 Assessment & Plan (1) PNA (pneumonia): Plan: Aspiration pneumonia Fever of 100.4 at home, , chest x-ray with evidence of bilateral pneumonia in addition to mild interstitial pulmonary edema and fluid overload BioFire is negative Unasyn continues, preliminary blood cx are gram positive in chains, not a contaminant. repeat cx on 10/03: preliminary negative ordered TTE, not complete yet. In patient rehab was denied. Awaiting placement from SNF Reviewed CBC, BMP on 10/06 (2) (HFpEF) heart failure with preserved ejection fraction: Plan: Acute heart failure with preserved ejection fraction Echo 08/2021 with low normal EF 50-55% Patient does show evidence of pulmonary edema on his x-ray with additional left effusion, chronic leg edema with a venous stasis component. diuresis with Lasix 20 mg IV twice daily, low-salt diet, strict measurement of intake output (3) Weakness: Plan: metabolic encephalopathy from pneumonia poa PT/OT pending. Suspect acute on chronic weakness due to metabolic encephalopahty from pneumonia and CHF (4) Prediabetes: Plan: Prediabetes No meds at home - AC/HS BSG checks Plan Stable issues -BPH without symptoms Anemia: Baseline 12-13. Hgb 12 on admit, no acute bleeding. No acute change - Hyperlipidemia: Statin continued DVT prophylaxis: Dose reduced Lovenox CODE STATUS: Full code Admission and Anticipated Discharge Date Admission Date: October 01, 2024 Subjective Patient is resting comfortably. Review of Systems Review of Systems: All systems reviewed & are unremarkable except as noted in HPI & below Physical Exam Physical Exam: Patient has no new complaints. cough with eating lungs diminished more on left than right cardiac is regular Results & Data Results & Data Vital Signs (Past 12 Hours) Vital Signs Temp Pulse Pulse Resp BP BP Pulse Ox 10/07/24 23:03 36.3 C L 74 18 152/79 H 90 10/07/24 21:52 76 10/07/24 19:58 77 18 90 10/07/24 19:07 36.3 C L 79 18 148/78 H 91 10/07/24 15:43 36.4 C L 70 18 174/79 H 90 10/07/24 14:04 81 10/07/24 13:09 93 10/07/24 11:44 36.4 C L 69 20 175/72 H 90 O2 Del Method 10/07/24 23:03 Room Air 10/07/24 21:52 10/07/24 19:58 Room Air 10/07/24 19:07 Room Air 10/07/24 15:43 Room Air 10/07/24 14:04 10/07/24 13:09 Room Air 10/07/24 11:44 Room Air PG Care Time/CCT Total # of Minutes Spent Total Time Spent with Patient: Total time spent is greater than 50% in coordination of care (as documented) at patient's floor/unit and/or counseling patient: Coding Level of Care Code 15160 SUB INP/OBS CARE 12/17MIN Diagnoses PNA (pneumonia) J18.9 (HFpEF) heart failure with preserved ejection fraction I50.33 Heart failure chronicity: acute on chronic Weakness R53.1 Prediabetes R73.03 (2) (HFpEF) heart failure with preserved ejection fraction Heart failure chronicity: acute on chronic Qualified Code(s): I50.33 - Acute on chronic diastolic (congestive) heart failure
[2024-10-08 10:00] LABS: Hemoglobin 12.1 g/dl (14.0-18.0); Mean Corpuscular Hemoglobin 29.8 pg (25.0-34.0); Mean Corpuscular Hgb Conc 33.6 g/dL (32.0-36.0); Mean Corpuscular Volume 88.7 fL (80.0-100.0); Mean Platelet Volume 9.3 fL (9.4-12.4); Platelet Count 348 K/uL (130-400); RDW Coefficient of Variation 13.2 % (11.5-14.5); RDW Standard Deviation 42.5 fL (36.4-46.3); Red Blood Count 4.06 M/uL (4.70-6.10); White Blood Count 11.11 K/ul (4.8-10.8)
[2024-10-08 10:10] LABS: BUN Creatinine Ratio 27.8 (10-20); Calcium 9.4 mg/dl (8.6-10.3); Creatinine Clr Calc Pharmacy 66.9 ml/min; Potassium 4.1 mmol/L (3.5-5.1)
[2024-10-08] MEDS ORDERED: SODIUM CHLOR 7% 4 ML NEB NEB PRN (16:52)
--- NOTE | 2024-10-09 07:59 | Hospitalist Progress Note ---
Date of Service October 08, 2024 Assessment & Plan (1) PNA (pneumonia): Plan: Aspiration pneumonia Fever of 100.4 at home, , chest x-ray with evidence of bilateral pneumonia in addition to mild interstitial pulmonary edema and fluid overload BioFire is negative Unasyn continues, preliminary blood cx are gram positive in chains, not a contaminant. repeat cx on 10/03: preliminary negative ordered TTE, not complete yet. In patient rehab was denied. Awaiting placement from SNF Reviewed CBC, BMP on 10/06 (2) (HFpEF) heart failure with preserved ejection fraction: Plan: Acute heart failure with preserved ejection fraction Echo 08/2021 with low normal EF 50-55% Patient does show evidence of pulmonary edema on his x-ray with additional left effusion, chronic leg edema with a venous stasis component. diuresis with Lasix 20 mg IV twice daily, low-salt diet, strict measurement of intake output (3) Weakness: Plan: metabolic encephalopathy from pneumonia poa PT/OT pending. Suspect acute on chronic weakness due to metabolic encephalopahty from pneumonia and CHF (4) Prediabetes: Plan: Prediabetes No meds at home - AC/HS BSG checks Plan Stable issues -BPH without symptoms Anemia: Baseline 12-13. Hgb 12 on admit, no acute bleeding. No acute change - Hyperlipidemia: Statin continued DVT prophylaxis: Dose reduced Lovenox CODE STATUS: Full code Admission and Anticipated Discharge Date Admission Date: October 01, 2024 Subjective 84 yo male reports no new symptoms. Physical Exam Physical Exam: Patient has no new complaints. cough with eating lungs diminished more on left than right cardiac is regular Results & Data Results & Data Vital Signs (Past 12 Hours) Vital Signs Temp Pulse Pulse Resp BP BP Pulse Ox 10/09/24 07:35 36.4 C L 66 18 174/78 H 94 10/09/24 07:00 66 10/09/24 06:00 71 10/09/24 03:38 36.4 C L 70 18 189/79 H 95 10/08/24 22:37 36.6 C 85 18 136/73 91 10/08/24 22:06 10/08/24 22:00 84 O2 Del Method 10/09/24 07:35 Room Air 10/09/24 07:00 10/09/24 06:00 10/09/24 03:38 Room Air 10/08/24 22:37 Room Air 10/08/24 22:06 Room Air 10/08/24 22:00 PG Care Time/CCT Total # of Minutes Spent Total Time Spent with Patient: Total time spent is greater than 50% in coordination of care (as documented) at patient's floor/unit and/or counseling patient: Coding Level of Care Code 05429 SUB INP/OBS CARE 12/17MIN Diagnoses PNA (pneumonia) J18.9 (HFpEF) heart failure with preserved ejection fraction I50.33 Heart failure chronicity: acute on chronic Weakness R53.1 Prediabetes R73.03 (2) (HFpEF) heart failure with preserved ejection fraction Heart failure chronicity: acute on chronic Qualified Code(s): I50.33 - Acute on chronic diastolic (congestive) heart failure
--- NOTE | 2024-10-09 22:09 | Hospitalist Progress Note ---
Date of Service October 09, 2024 Assessment & Plan (1) PNA (pneumonia): Plan: Aspiration pneumonia Fever of 100.4 at home, , chest x-ray with evidence of bilateral pneumonia in addition to mild interstitial pulmonary edema and fluid overload BioFire is negative Unasyn continues, preliminary blood cx are gram positive in chains, not a contaminant. repeat cx on 10/03: preliminary negative ordered TTE, not complete yet. In patient rehab was denied. Awaiting placement from SNF Reviewed CBC, BMP on 10/06 (2) (HFpEF) heart failure with preserved ejection fraction: Plan: Acute heart failure with preserved ejection fraction Echo 08/2021 with low normal EF 50-55% Patient does show evidence of pulmonary edema on his x-ray with additional left effusion, chronic leg edema with a venous stasis component. diuresis with Lasix 20 mg IV twice daily, low-salt diet, strict measurement of intake output (3) Weakness: Plan: metabolic encephalopathy from pneumonia poa PT/OT pending. Suspect acute on chronic weakness due to metabolic encephalopahty from pneumonia and CHF (4) Prediabetes: Plan: Prediabetes No meds at home - AC/HS BSG checks Plan Stable issues -BPH without symptoms Anemia: Baseline 12-13. Hgb 12 on admit, no acute bleeding. No acute change - Hyperlipidemia: Statin continued DVT prophylaxis: Dose reduced Lovenox CODE STATUS: Full code Admission and Anticipated Discharge Date Admission Date: October 01, 2024 Subjective 84 yo male reports no new symptoms. Physical Exam Physical Exam: Patient has no new complaints. cough with eating lungs diminished more on left than right cardiac is regular Results & Data Results & Data Vital Signs (Past 12 Hours) Vital Signs Temp Pulse Pulse Resp BP BP Pulse Ox 10/09/24 19:33 36.8 C 83 18 134/81 93 10/09/24 13:50 96 H 10/09/24 11:23 36.4 C L 80 18 108/67 94 O2 Del Method 10/09/24 19:33 Room Air 10/09/24 13:50 10/09/24 11:23 Room Air PG Care Time/CCT Total # of Minutes Spent Total Time Spent with Patient: Total time spent is greater than 50% in coordination of care (as documented) at patient's floor/unit and/or counseling patient: Coding Level of Care Code 15705 SUB INP/OBS CARE 1/25MIN Diagnoses PNA (pneumonia) J18.9 (HFpEF) heart failure with preserved ejection fraction I50.33 Heart failure chronicity: acute on chronic Weakness R53.1 Prediabetes R73.03 (2) (HFpEF) heart failure with preserved ejection fraction Heart failure chronicity: acute on chronic Qualified Code(s): I50.33 - Acute on chronic diastolic (congestive) heart failure
--- NOTE | 2024-10-10 22:05 | Hospitalist Progress Note ---
Date of Service October 10, 2024 Assessment & Plan (1) PNA (pneumonia): Plan: Aspiration pneumonia Fever of 100.4 at home, , chest x-ray with evidence of bilateral pneumonia in addition to mild interstitial pulmonary edema and fluid overload BioFire is negative Unasyn continues, preliminary blood cx are gram positive in chains, not a contaminant. repeat cx on 10/03: preliminary negative ordered TTE, not complete yet. In patient rehab was denied. Awaiting placement for SNF Appears discharge for 10/11 (2) (HFpEF) heart failure with preserved ejection fraction: Plan: Acute heart failure with preserved ejection fraction Echo 08/2021 with low normal EF 50-55% Patient does show evidence of pulmonary edema on his x-ray with additional left effusion, chronic leg edema with a venous stasis component. diuresis with Lasix 20 mg IV twice daily, low-salt diet, strict measurement of intake output (3) Weakness: Plan: metabolic encephalopathy from pneumonia poa PT/OT pending. Suspect acute on chronic weakness due to metabolic encephalopahty from pneumonia and CHF (4) Prediabetes: Plan: Prediabetes No meds at home - AC/HS BSG checks Plan Stable issues -BPH without symptoms Anemia: Baseline 12-13. Hgb 12 on admit, no acute bleeding. No acute change - Hyperlipidemia: Statin continued DVT prophylaxis: Dose reduced Lovenox CODE STATUS: Full code Admission and Anticipated Discharge Date Admission Date: October 01, 2024 Subjective Patient reports feeling well. Physical Exam Physical Exam: Patient has no new complaints. cough with eating lungs slightly diminished on left more than right cardiac is regular Results & Data Results & Data Vital Signs (Past 12 Hours) Vital Signs Temp Pulse Pulse Resp BP BP Pulse Ox 10/10/24 19:31 36.5 C 84 14 147/82 H 91 10/10/24 17:25 10/10/24 14:50 36.4 C L 71 16 150/82 H 95 10/10/24 14:00 84 10/10/24 10:59 36.4 C L 85 18 132/76 96 Pulse Ox O2 Del Method O2 Del Method 10/10/24 19:31 Room Air 10/10/24 17:25 95 Room Air 10/10/24 14:50 Room Air 10/10/24 14:00 10/10/24 10:59 Room Air PG Care Time/CCT Total # of Minutes Spent Total Time Spent with Patient: Total time spent is greater than 50% in coordination of care (as documented) at patient's floor/unit and/or counseling patient: Coding Level of Care Code 74149 SUB INP/OBS CARE 12/17MIN Diagnoses PNA (pneumonia) J18.9 (HFpEF) heart failure with preserved ejection fraction I50.33 Heart failure chronicity: acute on chronic Weakness R53.1 Prediabetes R73.03 (2) (HFpEF) heart failure with preserved ejection fraction Heart failure chronicity: acute on chronic Qualified Code(s): I50.33 - Acute on chronic diastolic (congestive) heart failure
[2024-10-11 08:58] LABS: Hematocrit (blood only) 38.2 % (42.0-52.0); Hemoglobin 12.7 g/dl (14.0-18.0); Mean Corpuscular Hemoglobin 29.7 pg (25.0-34.0); Mean Corpuscular Hgb Conc 33.2 g/dL (32.0-36.0); Mean Corpuscular Volume 89.3 fL (80.0-100.0); Mean Platelet Volume 9.5 fL (9.4-12.4); Platelet Count 403 K/uL (130-400); RDW Coefficient of Variation 13.4 % (11.5-14.5); RDW Standard Deviation 43.3 fL (36.4-46.3); Red Blood Count 4.28 M/uL (4.70-6.10); White Blood Count 10.94 K/ul (4.8-10.8)
[2024-10-11 10:13] LABS: Calcium 9.5 mg/dl (8.6-10.3); Potassium 4.2 mmol/L (3.5-5.1)
[2024-10-11 10:19] LABS: BUN Creatinine Ratio 30.1 (10-20); Creatinine Clr Calc Pharmacy 58.8 ml/min
--- NOTE | 2024-10-11 11:06 | XRay Report ---
AP AND LATERAL CHEST RADIOGRAPHS CLINICAL HISTORY: PNEUMONIA, CHF COMPARISON STUDY: Chest CT September 20, 2021. Chest radiograph October 04, 2024. FINDINGS: There is no pneumothorax or pleural effusion. There is no evidence for pulmonary edema. Mod erate cardiomegaly is again noted. Left lower lung densities are again noted. IMPRESSION: 1. Cardiomegaly without evidence for pulmonary edema. 2. Left basilar densities which could reflect resolving pneumonia or atelectasis, similar to prior ex am. ACT 112: Negative or not required by law. Electronically signed by: Ben Guerra M.D. 10/11/2024 11:04 AM
[2024-10-11 12:31] VITALS: RESP 16; TEMP 97.3; O2SAT 94
--- NOTE | 2024-10-11 14:11 | Discharge Summary ---
Discharge Summary Date of Service October 11, 2024 Principal Dx & Hospital Course #1 = Principal Diagnosis (1) Aspiration pneumonia: (2) (HFpEF) heart failure with preserved ejection fraction: (3) Hypertension: (4) Hyperlipidemia: (5) Prediabetes: Plan 84-year-old male with past medical history of hypertension, chronic diastolic congestive heart failure with leg edema, hyperlipidemia, prediabetes who presented to the ED with 1 day history of fatigue, nausea, productive cough, fever and shortness of breath. He was found to have left lower lobe aspiration pneumonia and also was found to be in congestive heart failure as he was hypoxic Patient was treated with 5 days of IV Unasyn, seen by speech therapy and had modified barium swallow done and has been placed on easy to chew diet with thin liquids per speech therapy recommendations and aspiration precautions. I have instructed the patient and his that he needs to have all his meals in the chair sitting upright and no meals in bed. Patient was diuresed with IV Lasix 20 mg twice daily with improvement in his respiratory symptoms and leg edema. His BNP has normalized. Chest x-ray shows improvement in fluid and have switched him to oral Bumex 1 mg p.o. daily Patient has been referred to outpatient heart failure clinic He will continue with statin and losartan A1c was sent this morning: Results pending. Patient is diet controlled for prediabetes: Follow-up on A1c at [facility] or with PCP Patient had Veronica catheter inserted since he was on IV Lasix. Discontinue Veronica catheter prior to discharge to SNF. He will follow-up with his PCP on discharge from [facility] I have gone over the discharge care plan with the patient and his who is at the bedside in great detail and answered all their questions. This discharge to greater than 30 minutes to coordinate Admission HPI Per Admitting Provider Luca Chavez is an 84-year-old male with a past medical history of hypertension, hyperlipidemia, prediabetes who was recommended for admission for aspiration pneumonia 84-year-old male who presents with 1 day of increased fatigue, nausea, prod uctive cough for dark sputum, and shortness of breath. Seen w who reports predominant sx is junky cough and severe weakness much worse than his normal. Did fall a few days ago but did not lose consciousness. Patient was hypoxic in the ER requiring 2 L nasal cannula, he is not on oxygen prior to admission. No chills. +fever 100.4 last night. No fever this morning. Took tylenol last night, no tylenol this morning. Took lasix today. +leg swelling chronically over the last few weeks. Hx pEF. Denies orthopnea. Denies chest pain/chest pressure. Denies syncope/presycope. Medical History: Reviewed Medications: Reviewed Surgical History: Reviewed Family history: Reviewed Allergies: Reviewed. NKDA. Social History: No etoh. Former chew, quit >1 yr ago. Code Status: Full Discharge Exam General: No acute distress Psych: Awake and alert HEENT: Anicteric sclera, moist oral mucosa CVS: Regular rate and rhythm Lungs: Bilateral air entry, no wheezing noted Abdomen: Soft, nontender, no rebound, no guarding Ext: No lower extremity edema, no calf tenderness Discharge Plan Discharge Items Patient Disposition: Transfer [facility] Reason For Visit: PNA, CHF Discharge Diagnosis: #Aspiration pneumonia #Acute on chronic diastolic congestive heart failure with preserved ejection fraction #Essential hypertension #Hyperlipidemia #Prediabetes #Lumbar disc disease # Mild oropharyngeal dysphagia Condition on Discharge: Fair Activity: As commented below Activity Comment: As tolerated with assistance. Out of bed to chair for all meals, no meals Non-emergency contact: Primary Care Provider Call non-emergency contact if: you have any medication questions, your symptoms worsen, you have a fever and your temperature is above 101 Follow-up/Referrals: Attila Benitez, [Primary Care Provider] - Diet: Carb Consistent or DM2 and Heart Healthy Diet Texture: Easy to Chew Diet Comment: Diet has to be easy to chew IDDSI 7, thin liquids Addtl Attending Provider Instructions: DISCHARGE INSTRUCTION TO PATIENT/FAMILY/SNF: Follow-up with your primary care provider within 1 week regarding: Posthospital discharge, medication review, medication refills and follow-up on all your medical problems Please take all your discharge medications, discharge information and discharge instructions to all your doctors appointments. Avoid all NSAIDs including ibuprofen, Motrin, Advil, Aleve, naproxen, meloxicam, Toradol, diclofenac Labs at SNF in on Thursday10/14/24: CBC with diff, CMP, Mg, Vitamin D, Vitamin B12 Follow-up on the A1c results sent from [facility] on 10/11/2024 Out of bed to chair for all meals, no meals in bed Daily weights Instructions per speech therapist: Diet has to be easy to chew IDDSI 7, thin liquids. Aspiration precautions. Mouth care: Clean all surfaces of the mouth and tongue prior to meals and before bed. Patient will benefit from short-term speech therapy upon discharge. No straws. Pending Studies at Discharge: Yes Studies:: Hemoglobin A1c from 10/11/2024 Stand-Alone Forms: My [facility] Skilled Items Patient informed of condition?: Yes DNR: No Discharge Level of Care: Skilled Communicable Disease: No Discharge Prognosis: Stable Lines: None Urinary Catheter: No Medications and DC Order Prescriptions: New bumetanide 1 mg tablet 1 mg PO QAM Qty: 14 0RF Continued (DME) Wheelchair (Manual) Device See Rx Instructions .ROUTE .MEDSUPPLY Qty: 1 0RF Rx Instructions: TRANSPORT CHAIR simvastatin 20 mg tablet 20 mg PO QPM Qty: 90 3RF gabapentin 100 mg capsule 300 mg PO DAILY 90 Days Qty: 270 3RF melatonin 5 mg Tablet 5 mg PO HS plum extract 1,000 mg Tablet 1,000 mg PO QPM Cbd Gummy 15 mg PO QPM losartan 100 mg tablet 100 mg PO QPM Discontinued furosemide 20 mg tablet 20 mg PO QAM Qty: 90 3RF Discharge Orders: Discharge Order- CHF (Routine); Ordered 10/11/24 Ordered By: Connor Beck Admission Data Admit Date/Time: 10/01/24 13:44 Attending Provider: Connor Beck Admit Provider: Luca Cuellar Primary Care Provider: Attila Benitez Other Providers: Luca Cuellar; [facility] Stay Data Consultations 10/01/24 12:47 ED Decision to Admit Stat Diagnostic Imagining Performed Laboratory Results - last 48 hr 10/09/24 10/09/24 10/09/24 17:16 19:49 19:51 WBC RBC Hgb Hct MCV MCH MCHC RDW Std Deviation RDW Coeff of [place] Plt Count MPV Sodium Potassium Chloride Carbon Dioxide Anion Gap BUN Creatinine Est Cr Clr Drug Dosing eGFR BUN/Creatinine Ratio Glucose POC Glucose 107 H 143 H 125 H Calcium B-Natriuretic Peptide Vitamin B12 10/10/24 10/10/24 10/10/24 08:04 11:52 16:57 WBC RBC Hgb Hct MCV MCH MCHC RDW Std Deviation RDW Coeff of [place] Plt Count MPV Sodium Potassium Chloride Carbon Dioxide Anion Gap BUN Creatinine Est Cr Clr Drug Dosing eGFR BUN/Creatinine Ratio Glucose POC Glucose 102 H 104 H 144 H Calcium B-Natriuretic Peptide Vitamin B12 10/10/24 10/11/24 10/11/24 20:07 07:58 08:19 WBC 10.94 H RBC 4.28 L Hgb 12.7 L Hct 38.2 L MCV 89.3 MCH 29.7 MCHC 33.2 RDW Std Deviation 43.3 RDW Coeff of [place] 13.4 Plt Count 403 H MPV 9.5 Sodium 137 Potassium 4.2 Chloride 104 Carbon Dioxide 24 Anion Gap 9 BUN 31 H Creatinine 1.03 Est Cr Clr Drug Dosing 58.8 eGFR 70.74 BUN/Creatinine Ratio 30.1 H Glucose 117 H POC Glucose 102 H 112 H Calcium 9.5 B-Natriuretic Peptide Vitamin B12 Cancelled 10/11/24 10/11/24 10:07 11:56 WBC RBC Hgb Hct MCV MCH MCHC RDW Std Deviation RDW Coeff of [place] Plt Count MPV Sodium Potassium Chloride Carbon Dioxide Anion Gap BUN Creatinine Est Cr Clr Drug Dosing eGFR BUN/Creatinine Ratio Glucose POC Glucose 112 H Calcium B-Natriuretic Peptide 43 Vitamin B12 Chest X-Ray 10/01/24 10:23 XR chest 1V portable CLINICAL HISTORY: Shortness of breath. Cough. COMPARISON STUDY: Chest radiograph September 19, 2021. Chest CT September 20, 2021. FINDINGS: There is no pneumothorax. A small left pleural effusion is present. Moderate bibasilar opacities are noted. Cardiomegaly with mild interstitial thickening. No pneumothorax. The patient is rotated. IMPRESSION: 1. Moderate bibasilar opacities suggestive of pneumonia or aspiration pneumonitis. Radiographic follow-up is recommended. 2. Cardiomegaly with mild interstitial pulmonary edema. 3. Small left pleural effusion. ACT 112: Negative or not required by law. Electronically signed by: Ben Guerra M.D. 10/01/2024 11:41 AM Videofluoroscopic Swallow 10/03/24 10:00 FL video swallow CLINICAL HISTORY: 84 years-old Male with assess for aspiration. Dysphagia with possible aspiration TECHNIQUE: Video fluoroscopic evaluation of swallowing was performed in the AP and lateral projections by the speech pathology staff. The patient is fed varying consistencies of barium. FLUOROSCOPY TIME: 1.40 minutes. 2687 images were submitted. 12.4 mGy COMPARISON STUDY: None. FINDINGS: Hyoid excursion and epiglottic deflection is mostly within normal limits. No definite aspiration identified. There is laryngeal penetration with thin liquid barium. Mild esophageal dysmotility. IMPRESSION: 1. Laryngeal penetration with thin liquid barium. No aspiration identified. 2. Please see the speech pathologist report for detailed findings and recommendations. ACT 112: Negative or not required by law. Electronically signed by: Feliciano Pretty M.D. 10/03/2024 12:47 PM Chest X-Ray 10/04/24 07:00 XR chest 2V PA/lateral HISTORY: 84 years-old Male pneumonia COMPARISON: 10/01/2024 TECHNIQUE: AP view the chest FINDINGS: Cardiac silhouette is enlarged. No overt pulmonary edema. No pneumothorax or large pleural effusion. Blunting of the costophrenic angles may represent trace effusions. There is improved aeration of left lung base with mild persistent ill-defined interstitial and alveolar opacities. Bones appear grossly intact. IMPRESSION: 1. Improved aeration of left lung base with mild persistent opacities suggestive of resolving pneumonia. 2. Cardiomegaly without pulmonary edema. 3. Trace pleural effusions. ACT 112: Negative or not required by law. The above report was generated using voice recognition software. It may contain grammatical, syntax or spelling errors. Electronically signed by: Feliciano Pretty M.D. 10/04/2024 10:59 AM Chest X-Ray 10/11/24 09:38 AP AND LATERAL CHEST RADIOGRAPHS CLINICAL HISTORY: PNEUMONIA, CHF COMPARISON STUDY: Chest CT September 20, 2021. Chest radiograph October 04, 2024. FINDINGS: There is no pneumothorax or pleural effusion. There is no evidence for pulmonary edema. Moderate cardiomegaly is again noted. Left lower lung densities are again noted. IMPRESSION: 1. Cardiomegaly without evidence for pulmonary edema. 2. Left basilar densities which could reflect resolving pneumonia or atelectasis, similar to prior exam. ACT 112: Negative or not required by law. Electronically signed by: Ben Guerra M.D. 10/11/2024 11:04 AM 10/03/24 10:00 FL video swallow Routine Pending Results Patient Have Any Pending Studies at Discharge: Yes Discharge Instructions Given to Patient (Per Discharging Provider) DISCHARGE INSTRUCTION TO PATIENT/FAMILY/SNF: Follow-up with your primary care provider within 1 week regarding: Posthospital discharge, medication review, medication refills and follow-up on all your medical problems Please take all your discharge medications, discharge information and discharge instructions to all your doctors appointments. Avoid all NSAIDs including ibuprofen, Motrin, Advil, Aleve, naproxen, meloxicam, Toradol, diclofenac Labs at SNF in on Thursday10/14/24: CBC with diff, CMP, Mg, Vitamin D, Vitamin B12 Follow-up on the A1c results sent from [facility] on 10/11/2024 Out of bed to chair for all meals, no meals in bed Daily weights Instructions per speech therapist: Diet has to be easy to chew IDDSI 7, thin liquids. Aspiration precautions. Mouth care: Clean all surfaces of the mouth and tongue prior to meals and before bed. Patient will benefit from short-term speech therapy upon discharge. No straws. Total Time Total Time Spent Total Time Spent (In Minutes): 40 minutes Coding Level of Care Code 60781 INP/OBS DISCH >30 MIN Diagnoses Aspiration pneumonia J69.0 Aspiration pneumonia type: unspecified Laterality: bilateral Lung location: unspecified part of lung (HFpEF) heart failure with preserved ejection fraction I50.33 Heart failure chronicity: acute on chronic Essential hypertension I10 Hypertension type: essential hypertension Hyperlipidemia, unspecified hyperlipidemia type E78.5 Hyperlipidemia type: unspecified Prediabetes R73.03
[2024-10-11 14:37] VITALS: BP 122/74; PULSE 87
[2024-10-11 16:09] LABS: Estimated Average Glucose 131 mg/dl; Hemoglobin A1C 6.2 % (4.5-5.6)
[2024-10-12] MEDS ORDERED: BUMETANIDE 1 MG TAB PO SCH (09:00)
== END 2024-10-11 15:16 | DRG 177 ==
LOC: ED 10:05 → SUATTDRO 13:44 → 2N 13:44

== ENCOUNTER 2025-02-08 11:05 | Inpatient (IN) ==
[2025-02-08 12:13] LABS: Appearance Urine Clear (Clear); Bilirubin Urine Negative (Negative); Blood Urine Negative (Negative); Color Urine Yellow; Glucose Urine UA Negative (Negative); Ketones Urine Negative (Negative); Leukocyte Esterase Urine Negative (Negative); Nitrite Urine Negative (Negative); Protein Urine Negative (Negative); Specific Gravity Urine 1.009 (1.000-1.030); Urobilinogen Urine Negative (Negative); pH Urine 5.5 (4.5-7.5)
[2025-02-08 12:14] LABS: Base Excess VBG 0.8 mEq/L; HCO3 VBG 27 mmol/L; Oxygen Saturation VBG < 60.0 %; PCO2 VBG 46 mmHg (38-50); PO2 VBG 34 mmHg; pH VBG 7.37 (7.36-7.41)
--- NOTE | 2025-02-08 12:16 | XRay Report ---
XR chest 1V portable CLINICAL HISTORY: Dyspnea COMPARISON STUDY: 10/11/2024 FINDINGS: Stable cardiomegaly with mild pulmonary vascular congestion. No effusion, consolidation, or pneumothorax. IMPRESSION: Mild CHF. ACT 112: Negative or not required by law. Electronically signed by: Dominick Hill M.D. 02/08/2025 12:15 PM
[2025-02-08 12:17] LABS: Basophils # (auto) 0.04 K/uL (0.00-0.20); Basophils % (auto) 0.3 %; Eosinophils # (auto) 0.33 K/uL (0.00-0.50); Eosinophils % (auto) 2.4 %; Hematocrit (blood only) 35.9 % (42.0-52.0); Hemoglobin 12.1 g/dl (14.0-18.0); Immature Granulocytes # (auto) 0.08 K/uL (0.01-0.20); Immature Granulocytes % (auto) 0.6 %; Lymphocytes # (auto) 2.22 K/uL (1.20-3.40); Lymphocytes % (auto) 16.1 %; Mean Corpuscular Hemoglobin 29.3 pg (25.0-34.0); Mean Corpuscular Hgb Conc 33.7 g/dL (32.0-36.0); Mean Corpuscular Volume 86.9 fL (80.0-100.0); Mean Platelet Volume 9.1 fL (9.4-12.4); Monocytes # (auto) 1.56 K/uL (0.11-0.59); Monocytes % (auto) 11.3 %; Neutrophils # (auto) 9.54 K/uL (1.40-6.50); Neutrophils % (auto) 69.3 %; Platelet Count 241 K/uL (130-400); RDW Standard Deviation 45.2 fL (36.4-46.3); Red Blood Count 4.13 M/uL (4.70-6.10); White Blood Count 13.77 K/ul (4.8-10.8)
--- NOTE | 2025-02-08 12:26 | Emergency Department Note ---
Impression & Plan Hypoxia, Pneumonia, Leukocytosis, Cough ED Provider Note HISTORY OF PRESENT ILLNESS: Patient is an 84-year-old male presenting with cough. Patient reports that he has been coughing up a yellow-colored sputum for the last 5 days. He denies any significant shortness of breath or chest pain. Denies any recent fevers or sick contact exposures. He was seen at his primary care provider's office and referred to the emergency department due to his "lung sounds and low oxygen." He reportedly had an oxygen saturation 90% in the office. Patient has not been on any recent antibiotics or steroids. reports the patient has had increasing weakness over the last 5 days. Patient denies any DVT or PE history. He is not on any anticoagulation or antiplatelet therapies. ROS: as above PHYSICAL EXAM: Constitutional: Patient appears in no acute distress. HENT: Head: Normocephalic and atraumatic. Eyes: EOMI, PERRL Mouth/Throat: Mucous membranes moist. Neck: Trachea midline. Neck supple. Cardiovascular: RRR, No murmurs, rubs or gallops. Intact distal pulses. Pulmonary/Chest: No respiratory distress. Breath sounds clear and equal bilaterally. Coarse breath sounds bilaterally. Abdominal: Abdomen soft, no tenderness, rebound or guarding. Musculoskeletal: No edema, tenderness or deformity noted. Skin: Warm and dry. No rash, erythema, pallor or cyanosis Psychiatric: Appropriate mood and affect for situation. Neurological: Alert and keenly responsive. CN II-XII grossly intact, moving all extremities equally and fully. MDM: - Vitals signs showed hypertension and tachycardia and borderline hypoxia - History obtained via patient. History as above. - Chronic conditions affecting care: HTN; HLD; hyperthyroidism - Differential diagnoses include, but are not limited to: Congestive heart failure; acute coronary syndrome; COPD/asthma exacerbation; pulmonary edema; pulmonary embolism; pneumonia; pneumothorax; viral syndrome - Order placed for continuous cardiac monitoring. At this time, monitor showed rate of 84 bpm with normal sinus rhythm, per my interpretation. - External medical records reviewed. Primary care visit note from today was reviewed. He reports the patient has had decreased urinary output and significant increase sputum production and inability to ambulate or walk. - EKG image interpreted by myself showed normal sinus rhythm. Rate 84 bpm. QT 362. No acute ischemic changes. Noted to have an occasional PVC. - Laboratory workup interpreted by myself showed leukocytosis (WBC 13.77); normal PT/INR; slight hyponatremia (Na 135); normal troponin; normal BNP - UA negative for infection - CXR image reviewed by myself is negative for pneumonia, per my interpretation. Radiology notes mild CHF - Viral respiratory panel negative - VBG normal - Patient having borderline hypoxia on arrival and his saturations of down to 88% on room air. He was started on 2 L nasal cannula. - Sputum culture ordered. - Given patient's weakness, leukocytosis and productive cough, will empirically treat for pneumonia with 2 g IV Rocephin and 500 mg p.o. azithromycin. - CT PE ordered given patient's hypoxia and cough. - Discussion was had with pillowcase turner about patient's case and need for admission - Hospitalist consulted for admission - Patient admitted to [facility] for further evaluation and management. ASSESSMENT AND PLAN: Diagnosis: Cough; hypoxia; pneumonia; leukocytosis Plan: admit Past Med/Surg History Problem List (Updated 02/08/25 @ 13:43 by Clarita Pickens MD) Cough (Acute) Leukocytosis (Acute) Pneumonia (Acute) Hypoxia (Acute) Ambulatory dysfunction Leukocytosis (Acute) Aspiration pneumonia (Acute) (HFpEF) heart failure with preserved ejection fraction (Acute) PNA (pneumonia) Leg edema Right ear impacted cerumen Prediabetes Elevated serum creatinine Weakness (Acute) Impaired fasting glucose Postherpetic neuralgia Numbness of left lower extremity (Chronic) Tubular adenoma of colon (Acute) Lumbar disc disorder with myelopathy (Chronic) Lumbar canal stenosis (Chronic) Hyperthyroidism (Chronic) Hypertension (Chronic) Hyperlipidemia (Chronic) Herpes zoster without complication (Acute) Gynecomastia, male (Acute) Enlarged prostate without lower urinary tract symptoms (luts) (Acute) Anemia (Chronic) hx Low TSH level hx BPH (benign prostatic hyperplasia) (Chronic) Chronic back pain Right knee DJD Left knee DJD (Acute 08/03/14) Medical History Lumbar canal stenosis DJD (degenerative joint disease) of knee Postherpetic neuralgia hx, no issues currently History of colon polyps Hyperthyroidism hx HTN (hypertension) Hyperlipidemia Chronic back pain Anemia hx BPH (benign prostatic hyperplasia) hx- s/p TURP Prediabetes diet controlled, no meds History of anesthesia reaction after knee replacement had issues with being able to void--had to have prostate surgery Dizziness hx of--per happens when he is dehydrated, no issues recently Syncope hx--per happens when pt is dehydrated, no issues recently Compression fracture of thoracic vertebra hx Surgical History Hx of cataract extraction History of colonoscopy History of tooth extraction Hx of transurethral resection of prostate H/O inguinal hernia repair H/O laminectomy H/O total knee replacement Family History Brother Prostate cancer Schizophrenia Stroke Mother Heart disease Other No family history of adverse response to anesthesia No pertinent family history Denies family history of Ovarian cancer Myocardial infarction Breast cancer Colorectal cancer Social History Smoking Status: Never smoker Tobacco Type: Smokeless Tobacco (Dip or Chew) Second Hand Exposure: No; Do You Dip or Chew Tobacco: No; Hx Alcohol Use: No Hx Substance Use: No Preferred Language: [place]orese Communication Ability: Effective Visual Impairment: No Limitations Hearing Ability: Normal Churner Required: No Beliefs That Will Affect Care: None marital status: Current Living Situation: Spouse current occupational status: retired current occupation: worked on his dairy farm, 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 Feels Safe at Home: Yes Childhood Exposure to Second-Hand Smoke: No Diet: regular caffeine: Yes (one cup daily ) Dental Care, Regularly: Yes Physical Activity Frequency: Does not Exercise Seatbelt Use: sometimes Sunscreen Use: Yes Assistive Devices: Walker Allergies Allergies Allergy/AdvReac Type Severity Reaction Status Date / Time No Known Allergies Allergy Verified 02/08/25 10:03 Home Meds Home Medications Medication Instructions Recorded Confirmed melatonin 5 mg tablet 5 mg PO HS 05/05/22 02/08/25 Cbd Gummy 15 mg PO QPM 03/23/24 02/08/25 losartan 100 mg tablet 100 mg PO QPM 03/23/24 02/08/25 acetaminophen 500 mg tablet 1,000 mg PO HS 02/08/25 02/08/25 gabapentin 100 mg capsule 300 mg PO QAM 02/08/25 02/08/25 Previous Rx's Medication Instructions Recorded Wheelchair (Manual) #1 ea 08/18/20 simvastatin 20 mg tablet 20 mg PO QPM #90 tabs 04/25/24 bumetanide 1 mg tablet 1 mg PO QAM #90 tabs 12/20/24 Results & Data (ED) Vital Signs Vital Signs - 24 hr 02/08/25 11:11 02/08/25 11:30 02/08/25 11:30 Temperature 37.1 C Temperature Source Temporal Artery Scan Pulse Rate 81 91 H Pulse Rate [Apical] Respiratory Rate 18 20 Respiratory Effort / Characteristics Non-Labored Spontaneous Respiratory Depth Normal Respiratory Pattern Regular Blood Pressure 148/76 H 164/86 H 164/86 H Blood Pressure [Right Arm] Blood Pressure Mean 100 116 116 Blood Pressure Mean [Right Arm] Pulse Oximetry 91 92 Oxygen Delivery Method Room Air Oxygen Flow Rate Sepsis Recent Fever Within 48 Hours No Sepsis New/Unexplained Change in Mental Status N/A Sepsis Action Taken by Nursing No Action Required 02/08/25 11:39 02/08/25 12:00 02/08/25 12:31 Temperature Temperature Source Pulse Rate 93 H 84 83 Pulse Rate [Apical] Respiratory Rate 22 20 Respiratory Effort / Characteristics Respiratory Depth Respiratory Pattern Blood Pressure 171/87 H 152/69 H Blood Pressure [Right Arm] Blood Pressure Mean 132 103 Blood Pressure Mean [Right Arm] Pulse Oximetry 91 88 L Oxygen Delivery Method Oxygen Flow Rate Sepsis Recent Fever Within 48 Hours Sepsis New/Unexplained Change in Mental Status Sepsis Action Taken by Nursing 02/08/25 13:00 02/08/25 13:11 Temperature Temperature Source Pulse Rate 78 Pulse Rate [Apical] 85 Respiratory Rate 17 20 Respiratory Effort / Characteristics Non-Labored Respiratory Depth Normal Respiratory Pattern Blood Pressure 162/75 H Blood Pressure [Right Arm] 162/75 H Blood Pressure Mean 140 Blood Pressure Mean [Right Arm] 104 Pulse Oximetry 93 93 Oxygen Delivery Method Nasal Cannula Nasal Cannula Oxygen Flow Rate 2 2 Sepsis Recent Fever Within 48 Hours Sepsis New/Unexplained Change in Mental Status Sepsis Action Taken by Nursing Laboratory Data 02/08/25 11:55 02/08/25 11:55 Lab Results 02/08/25 02/08/25 Range/Units 11:50 11:55 WBC 13.77 H (4.8-10.8) K/ul RBC 4.13 L (4.70-6.10) M/uL Hgb 12.1 L (14.0-18.0) g/dl Hct 35.9 L (42.0-52.0) % MCV 86.9 (80.0-100.0) fL MCH 29.3 (25.0-34.0) pg MCHC 33.7 (32.0-36.0) g/dL RDW Std Deviation 45.2 (36.4-46.3) fL RDW Coeff of [place] 14.0 (11.5-14.5) % Plt Count 241 (130-400) K/uL MPV 9.1 L (9.4-12.4) fL Immature Gran % (Auto) 0.6 % Neut % (Auto) 69.3 % Lymph % (Auto) 16.1 % [place] % (Auto) 11.3 % Eos % (Auto) 2.4 % Baso % (Auto) 0.3 % Neut # (Auto) 9.54 H (1.40-6.50) K/uL Lymph # (Auto) 2.22 (1.20-3.40) K/uL [place] # (Auto) 1.56 H (0.11-0.59) K/uL Eos # (Auto) 0.33 (0.00-0.50) K/uL Baso # (Auto) 0.04 (0.00-0.20) K/uL Immature Gran # (Auto) 0.08 (0.01-0.20) K/uL PT 11.1 (9.0-12.0) Seconds INR 1.0 (0.9-1.1) VBG pH 7.37 (7.36-7.41) VBG pCO2 46 (38-50) mmHg VBG pO2 34 mmHg VBG HCO3 27 mmol/L VBG O2 Saturation < 60.0 % VBG Base Excess 0.8 mEq/L Sodium 135 L (136-145) mmol/L Potassium 3.9 (3.5-5.1) mmol/L Chloride 99 (98-107) mmol/L Carbon Dioxide 28 (21-32) mmol/L Anion Gap 8 (3-11) BUN 14 (6-23) mg/dl Creatinine 0.97 (0.6-1.4) mg/dl Est Cr Clr Drug Dosing Not Reportable eGFR 76.03 BUN/Creatinine Ratio 14.4 (10-20) Glucose 106 H (70-99(Fasting)) mg/dl Calcium 9.2 (8.6-10.3) mg/dl Magnesium 2.0 (1.7-2.4) mg/dl Total Bilirubin 0.8 (0.2-1.0) mg/dl AST 14 (13-39) U/L ALT 12 (7-52) U/L Alkaline Phosphatase 92 (34-104) U/L Troponin I High Sens 5.0 (0-20) pg/ml B-Natriuretic Peptide 97 (0-100) pg/ml Total Protein 7.3 (6.0-8.3) gm/dl Albumin 4.3 (3.4-5.0) gm/dl Globulin 3.0 (2.5-4.0) gm/dl Albumin/Globulin Ratio 1.4 (0.9-2) Urine Color Yellow Urine Appearance Clear (Clear) Urine pH 5.5 (4.5-7.5) Ur Specific [place] 1.009 (1.000-1.030) Urine Protein Negative (Negative) Urine Glucose (UA) Negative (Negative) Urine Ketones Negative (Negative) Urine Blood Negative (Negative) Urine Nitrite Negative (Negative) Urine Bilirubin Negative (Negative) Urine Urobilinogen Negative (Negative) Ur Leukocyte Esterase Negative (Negative) Adenovirus (PCR) Not Detected (NotDetected) B. pertussis DNA (PCR) Not Detected (NotDetected) B.parapertussis DNA PCR Not Detected (NotDetected) C. pneumoniae DNA (PCR) Not Detected (NotDetected) Coronavirus OC43 (PCR) Not Detected (NotDetected) Coronavirus HKU1 (PCR) Not Detected (NotDetected) Coronavirus 229E (PCR) Not Detected (NotDetected) SARS-CoV-2 (PCR) Not Detected (NotDetected) Coronavirus NL63 (PCR) Not Detected (NotDetected) Human Metapneumovir PCR Not Detected (NotDetected) Influenza Type A (PCR) Not Detected (NotDetected) Influenza Type B (PCR) Not Detected (NotDetected) M. pneumoniae (PCR) Not Detected (NotDetected) Parainfluenza 1 (PCR) Not Detected (NotDetected) Parainfluenza 2 (PCR) Not Detected (NotDetected) Parainfluenza 3 (PCR) Not Detected (NotDetected) Parainfluenza 4 (PCR) Not Detected (NotDetected) RSV (PCR) Not Detected (NotDetected) Entero/Rhino (PCR) Not Detected (NotDetected) Imaging Data Radiologist's Impression: Chest X-Ray 02/08/25 11:34 XR chest 1V portable CLINICAL HISTORY: Dyspnea COMPARISON STUDY: 10/11/2024 FINDINGS: Stable cardiomegaly with mild pulmonary vascular congestion. No effusion, consolidation, or pneumothorax. IMPRESSION: Mild CHF. ACT 112: Negative or not required by law. Electronically signed by: Dominick Hill M.D. 02/08/2025 12:15 PM Discharge Plan Visit Data Chief Complaint: Flu Like Symptoms ED Provider: Clarita Pickens Discharge Problem: Hypoxia, Pneumonia, Leukocytosis, Cough Forms Stand Alone Forms: [facility] [employer] Prescriptions Prescriptions: No Action (DME) Wheelchair (Manual) Device See Rx Instructions .ROUTE .MEDSUPPLY Qty: 1 0RF Rx Instructions: TRANSPORT CHAIR simvastatin 20 mg tablet 20 mg PO QPM Qty: 90 3RF bumetanide 1 mg tablet 1 mg PO QAM Qty: 90 3RF melatonin 5 mg Tablet 5 mg PO HS Cbd Gummy 15 mg PO QPM losartan 100 mg tablet 100 mg PO QPM acetaminophen [Tylenol Ex Str Rapid Release] 500 mg Tablet 1,000 mg PO HS gabapentin 100 mg capsule 300 mg PO QAM Referrals Referrals: Attila Benitez DO [Primary Care Provider] -
[2025-02-08 12:34] LABS: Alanine Aminotransferase 12 U/L (7-52); Albumin Globulin Ratio 1.4 (0.9-2); Albumin Level 4.3 gm/dl (3.4-5.0); Alkaline Phosphatase 92 U/L (34-104); Anion Gap 8 (3-11); Aspartate Aminotransferase 14 U/L (13-39); BUN Creatinine Ratio 14.4 (10-20); Bilirubin,Total 0.8 mg/dl (0.2-1.0); Blood Urea Nitrogen 14 mg/dl (6-23); Calcium 9.2 mg/dl (8.6-10.3); Carbon Dioxide 28 mmol/L (21-32); Chloride 99 mmol/L (98-107); Glucose 106 mg/dl (70-99(Fasting)); Potassium 3.9 mmol/L (3.5-5.1); Sodium 135 mmol/L (136-145); Total Protein 7.3 gm/dl (6.0-8.3)
[2025-02-08 12:42] LABS: Prothrombin Time 11.1 Seconds (9.0-12.0)
[2025-02-08 13:10] LABS: Adenovirus PCR Not Detected (NotDetected); Bordetella parapertussis PCR Not Detected (NotDetected); Bordetella pertussis PCR Not Detected (NotDetected); Chlamydia pneumoniae PCR Not Detected (NotDetected); Coronavirus 229E PCR Not Detected (NotDetected); Coronavirus CoV-2 (COVID19)PCR Not Detected (NotDetected); Coronavirus HKU1 PCR Not Detected (NotDetected); Coronavirus NL63 PCR Not Detected (NotDetected); Coronavirus OC43PCR Not Detected (NotDetected); Human Metapneumovirus PCR Not Detected (NotDetected); Influenza A PCR Not Detected (NotDetected); Influenza B PCR Not Detected (NotDetected); Mycoplasma pneumoniae PCR Not Detected (NotDetected); Parainfluenza Virus 1 PCR Not Detected (NotDetected); Parainfluenza Virus 2 PCR Not Detected (NotDetected); Parainfluenza Virus 3 PCR Not Detected (NotDetected); Parainfluenza Virus 4 PCR Not Detected (NotDetected); Respiratory Syncytial VirusPCR Not Detected (NotDetected); Rhinovirus/Enterovirus PCR Not Detected (NotDetected)
[2025-02-08] MEDS: OPTIRAY 320 125ml IV ONE (13:46)
--- NOTE | 2025-02-08 13:50 | History & Physical Report ---
"<Statement entered by Ernestina Boyd MD - 02/08/25 19:11> I have reviewed vital signs, chart notes, labs and imaging. I have personally seen, evaluated and examined the patient. I have also discussed the management of the patient with the SRUTHI and I agree with the exam findings documented in the history and physical examination and the documented assessment and plan unless otherwise stated below. Luca has had roughly 5 days of coughing than 2 days of extremely purulent sputum, dyspnea. reports 10-day admission for pneumonia last fall. VFSS was negative. She says that rehab therapists had some concern for Parkinson's because of his bradykinesia she has noticed a tremor of his left hand at times at rest. She says he does lean and fall to the left. His walking is poor and deteriorating, weak and knees buckling last 48h, previously doing okay. My exam notable for nonlabored WOB, bilateral mild exp wheezing, diminished both bases. Masked facies and moves around very little, leans to left, mild rigidity x 4 ext without cogwheeling, no parkinsonian tremor observed. A/P: Bibasilar aspiration pneumonitis vs aspiration pneumonia - newly purulent sputum so start antibiotics, procal negative and CT chest with bibasilar atelectasis vs early pneumonia. Repeat procal in AM Steroids and nebs for bronchospasm, doubt pulmonary edema does have hx HFpEF in the past Could have parkinsonism but not completely clear cut on exam. Gait evaluation, PT/OT Date of Service February 08, 2025 Assessment & Plan (1) Community acquired bacterial pneumonia: (2) Hypoxia: (3) (HFpEF) heart failure with preserved ejection fraction: (4) Prediabetes: Plan Luca Chavez is an 84-year-old male with a past medical history of hypothyroidism, hypertension, hyperlipidemia, BPH, prediabetes who presents to the ER at the recommendation of his PCP for hypoxia and weakness. Initial workup concerning for pneumonia with leukocytosis (13.7), increased sputum production and CTA Chest with no PE, atelectasis vs early PNA and hypoxia requiring supplemental oxygen. Admitted for IV antibiotics, PT/OT evaluations and oxygen titration #hypoxia | community-acquired pneumonia Continue ceftriaxone, p.o. azithromycin Supportive care: IS, FV, IV steroids, Mucinex, prn nebs Sputum culture ordered, pending Baseline is room air, wean O2 as able PT/OT a.m. CBC, BMP #CHF CXR concerning for CHF however no peripheral edema, BNP WNL and CT chest without effusions, additional diuretics deferred. Continue home bumex #Prediabetes A1c 6.2, 09/2024. Diet controlled. Check BSG in the setting of steroid use Insulin deferred on admission HLD - continue statin HTN - continue losartan CHF - continue bumex Dispo: admit to med/surg Dvt proh: Lovenox CODE STATUS: Full code History of Present Illness Chief Complaint: shortness of breath Primary Care Provider: Attila Benitez DO Luca Chavez is an 84-year-old male with a past medical history of hypothyroidism, hypertension, hyperlipidemia, BPH, prediabetes who presents to the ER at the recommendation of his PCP. Reports productive cough x 5 days with increased sputum production. he had a near fall this morning, he reports that he was post to sit on the bed and he missed it. Took two people to get him off the floor. Normally he uses a walker, but has increasing weakness. Denies chest pain. Has maintained his appetite, normal bowel habits. Denies recent changes in medications. no etoh, no smoking Desires to be a full code ER course: azithromycin 500 mg p.o. x 1 Ceftriaxone 2 g IV x 1 Allergies Allergy/AdvReac Type Severity Reaction Status Date / Time No Known Allergies Allergy Verified 02/08/25 10:03 Home Medications Medication Instructions Recorded Confirmed Type Wheelchair (Manual) #1 ea 07/10/20 02/08/25 Rx melatonin 5 mg tablet 5 mg PO HS 05/05/22 02/08/25 History Cbd Gummy 15 mg PO QPM 03/23/24 02/08/25 History losartan 100 mg tablet 100 mg PO QPM 03/23/24 02/08/25 History simvastatin 20 mg tablet 20 mg PO QPM #90 tabs 04/25/24 02/08/25 Rx bumetanide 1 mg tablet 1 mg PO QAM #90 tabs 12/20/24 02/08/25 Rx acetaminophen 500 mg tablet 1,000 mg PO HS 02/08/25 02/08/25 History gabapentin 100 mg capsule 300 mg PO QAM 02/08/25 02/08/25 History Past Med/Surg History Problem List (Updated 02/08/25 @ 14:24 by Christine Mg PA-C) Community acquired bacterial pneumonia Cough (Acute) Leukocytosis (Acute) Pneumonia (Acute) Hypoxia (Acute) Ambulatory dysfunction Leukocytosis (Acute) Aspiration pneumonia (Acute) (HFpEF) heart failure with preserved ejection fraction (Acute) PNA (pneumonia) Leg edema Right ear impacted cerumen Prediabetes Elevated serum creatinine Weakness (Acute) Impaired fasting glucose Postherpetic neuralgia Numbness of left lower extremity (Chronic) Tubular adenoma of colon (Acute) Lumbar disc disorder with myelopathy (Chronic) Lumbar canal stenosis (Chronic) Hyperthyroidism (Chronic) Hypertension (Chronic) Hyperlipidemia (Chronic) Herpes zoster without complication (Acute) Gynecomastia, male (Acute) Enlarged prostate without lower urinary tract symptoms (luts) (Acute) Anemia (Chronic) hx Low TSH level hx BPH (benign prostatic hyperplasia) (Chronic) Chronic back pain Right knee DJD Left knee DJD (Acute 08/03/14) Medical History Lumbar canal stenosis DJD (degenerative joint disease) of knee Postherpetic neuralgia hx, no issues currently History of colon polyps Hyperthyroidism hx HTN (hypertension) Hyperlipidemia Chronic back pain Anemia hx BPH (benign prostatic hyperplasia) hx- s/p TURP Prediabetes diet controlled, no meds History of anesthesia reaction after knee replacement had issues with being able to void--had to have prostate surgery Dizziness hx of--per happens when he is dehydrated, no issues recently Syncope hx--per happens when pt is dehydrated, no issues recently Compression fracture of thoracic vertebra hx Surgical History Hx of cataract extraction History of colonoscopy History of tooth extraction Hx of transurethral resection of prostate H/O inguinal hernia repair H/O laminectomy H/O total knee replacement Family History Brother Prostate cancer Schizophrenia Stroke Mother Heart disease Other No family history of adverse response to anesthesia No pertinent family history Denies family history of Ovarian cancer Myocardial infarction Breast cancer Colorectal cancer Social History Smoking Status: Never smoker Tobacco Type: Smokeless Tobacco (Dip or Chew) Second Hand Exposure: No; Do You Dip or Chew Tobacco: No; Hx Alcohol Use: No Hx Substance Use: No Preferred Language: Romanian Communication Ability: Effective Visual Impairment: No Limitations Hearing Ability: Normal Seamless Tube Mill Operator Required: No Beliefs That Will Affect Care: None marital status: Current Living Situation: Spouse current occupational status: retired current occupation: worked on his dairy farm, 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 Feels Safe at Home: Yes Childhood Exposure to Second-Hand Smoke: No Diet: regular caffeine: Yes (one cup daily ) Dental Care, Regularly: Yes Physical Activity Frequency: Does not Exercise Seatbelt Use: sometimes Sunscreen Use: Yes Assistive Devices: Walker Review of Systems Review of Systems: All systems reviewed & are unremarkable except as noted in Subjective Physical Exam Physical Exam: General: NAD, VS as above Resp: normal respiratory effort, produtive cough, coarse throughout, on 2L NC CV: RRR, no murmur, Abd: normal bowel sounds, non tender, soft Extremities: Moves all extremities, no edema Neuro: A&O x3, Skin: intact, no lesions noted Results & Data Results & Data Vital Signs (Past 12 Hours) Vital Signs Temp Pulse Pulse Resp BP BP Pulse Ox 02/08/25 13:11 85 20 162/75 H 93 02/08/25 13:00 78 17 162/75 H 93 02/08/25 12:31 83 20 152/69 H 88 L 02/08/25 12:00 84 22 171/87 H 91 02/08/25 11:39 93 H 02/08/25 11:30 91 H 20 164/86 H 92 02/08/25 11:30 164/86 H 02/08/25 11:11 98.8 F 81 18 148/76 H 91 O2 Del Method O2 Flow Rate 02/08/25 13:11 Nasal Cannula 2 02/08/25 13:00 Nasal Cannula 2 02/08/25 12:31 02/08/25 12:00 02/08/25 11:39 02/08/25 11:30 02/08/25 11:30 02/08/25 11:11 Room Air Laboratory Results CBC, VBG, chemistry, LFTs, BNP, Pro-Kody reviewed Diagnostic Findings chest x-ray reviewed Chest CTA reviewed PG Care Time/CCT Total # of Minutes Spent Total Time Spent with Patient: Total time spent is greater than 50% in coordination of care (as documented) at patient's floor/unit and/or counseling patient: Coding Level of Care Code 56352 INT INP/OBS CARE MIN Diagnoses Community acquired bacterial pneumonia J15.9 Hypoxia R09.02 (HFpEF) heart failure with preserved ejection fraction I50.33 Heart failure chronicity: acute on chronic Prediabetes R73.03 (3) (HFpEF) heart failure with preserved ejection fraction Heart failure chronicity: acute on chronic Qualified Code(s): I50.33 - Acute on chronic diastolic (congestive) heart failure"
--- NOTE | 2025-02-08 13:59 | CT Scan Report ---
CT angio chest PE protocol CT DOSE: 850.72 mGy.cm HISTORY: PE. TECHNIQUE: Multiple CTA images of the chest were obtained after the intravenous administration of 120 ml Optiray. Coronal and sagittal MIPS were obtained from the axial data set and were submitted for review. All measurements were obtained according to NASCET criteria. A dose lowering technique was u tilized adhering to the principles of ALARA. COMPARISON STUDY: 09/20/2021 FINDINGS: There is increased mild stranding and bandlike opacity at the left lower lobe and medial ri ght lung base, atelectasis versus early pneumonia. No other consolidation or pleural effusion. No pne umothorax. No enlarged adenopathy. No pericardial effusion. There are diffuse coronary artery calcifi cations. No pulmonary embolism. No thoracic aortic aneurysm. There is stable mild height loss at mult iple thoracic vertebral bodies. No acute osseous findings. IMPRESSION: 1. No pulmonary embolism seen. 2. Atelectasis versus early pneumonia in the lung bases. ACT 112: Negative or not required by law. The above report was generated using voice recognition software. It may contain grammatical, syntax o r spelling errors. Electronically signed by: Dominick Hill M.D. 02/08/2025 1:58 PM
[2025-02-08] MEDS ORDERED: ALBUT/IPRATROP 3MG/0.5MG NEB 3 ML VIAL NEB PRN (14:14)
[2025-02-08] MEDS ORDERED: ONDANSETRON INJ 2 MG/ML 2 ML VIAL IV PRN (14:14)
[2025-02-08] MEDS ORDERED: POLYETHYLENE (MIRALAX) 17 GM PACK PO PRN (14:14)
[2025-02-08] MEDS: cefTRIAXone SODIUM 2,000 MG/50 ML BAG IV STA (14:23)
[2025-02-08] MEDS: AZITHROMYCIN 250 MG TAB PO ONE (14:24)
[2025-02-08] MEDS: guaiFENesin 600 MG TABCR PO STA (15:51)
[2025-02-08] MEDS: methylPREDNISolone 125 MG/2 ML VIAL IV STA (15:52)
--- NOTE | 2025-02-08 18:10 | Electrocardiogram Report ---
Test Reason : Blood Pressure : */* mmHG Vent. Rate : 84 BPM Atrial Rate : 84 BPM P-R Int : 196 ms QRS Dur : 108 ms QT Int : 362 ms P-R-T Axes : 19 -8 35 degrees QTcB Int : 427 ms Sinus rhythm with occasional Premature ventricular complexes Poor R wave progression, consider anterior SC vs. lead placement vs. LVH Abnormal ECG When compared with ECG of 01-Oct-2024 10:53, Premature ventricular complexes are now Present MA interval has decreased Confirmed by Jonatan Echeverria ([id number]) on 02/08/2025 6:10:18 PM Referred By: Confirmed By: Jonatan Echeverria
[2025-02-08] MEDS: MELATONIN 3 MG TAB PO SCH (20:36)
[2025-02-08] MEDS: SIMVASTATIN 20 MG TAB PO SCH (20:37)
[2025-02-08] MEDS: LOSARTAN POTASSIUM 50 MG TAB PO SCH (20:37)
[2025-02-08] MEDS: guaiFENesin 600 MG TABCR PO SCH (20:38)
[2025-02-08] MEDS: methylPREDNISolone 60 MG in SYRINGE 0 ML IV SCH (20:42)
[2025-02-08] MEDS ORDERED: methylPREDNISolone 125 MG/2 ML VIAL IV SCH (21:00)
[2025-02-09 08:36] LABS: Hematocrit (blood only) 35.4 % (42.0-52.0); Hemoglobin 12.2 g/dl (14.0-18.0); Mean Corpuscular Hemoglobin 29.6 pg (25.0-34.0); Mean Corpuscular Hgb Conc 34.5 g/dL (32.0-36.0); Mean Corpuscular Volume 85.9 fL (80.0-100.0); Mean Platelet Volume 9.2 fL (9.4-12.4); Platelet Count 273 K/uL (130-400); RDW Coefficient of Variation 13.7 % (11.5-14.5); RDW Standard Deviation 43.5 fL (36.4-46.3); Red Blood Count 4.12 M/uL (4.70-6.10); White Blood Count 14.13 K/ul (4.8-10.8)
[2025-02-09 08:54] LABS: BUN Creatinine Ratio 20.4 (10-20); Calcium 9.2 mg/dl (8.6-10.3); Creatinine Clr Calc Pharmacy 65.7 ml/min; Potassium 4.2 mmol/L (3.5-5.1)
[2025-02-09] MEDS: AZITHROMYCIN 250 MG TAB PO SCH (09:21)
[2025-02-09] MEDS: BUMETANIDE 1 MG TAB PO SCH (09:21)
[2025-02-09] MEDS: ENOXAPARIN INJ 40 MG/0.4 ML SYR SQ SCH (09:21)
[2025-02-09] MEDS: GABAPENTIN 300 MG CAP PO SCH (09:22)
[2025-02-09] MEDS ORDERED: methylPREDNISolone 60 MG in SYRINGE 0 ML IV SCH (10:00)
[2025-02-09] MEDS ORDERED: DEXTROSE 50% 50 ML SYRINGE IV PRN (10:32)
[2025-02-09] MEDS ORDERED: CARBOHYDRATES FOR HYPOGLYCEMIA PO PRN (10:32)
[2025-02-09] MEDS ORDERED: GLUCOSE 10 TAB/TUBE PO PRN (10:32)
[2025-02-09] MEDS ORDERED: GLUCAGON FOR INJ 1 MG VIAL SQ PRN (10:32)
[2025-02-09] MEDS ORDERED: GLUCOSE 40% GEL 15 GM TUBE PO PRN (10:32)
[2025-02-09] MEDS: cefTRIAXone SODIUM 2,000 MG/50 ML BAG IV SCH (12:03)
[2025-02-09] MEDS: INSULIN ASPART PER UNIT CHARGE SC SCH (12:20)
--- NOTE | 2025-02-09 16:59 | Hospitalist Progress Note ---
Date of Service February 09, 2025 Assessment & Plan (1) Community acquired bacterial pneumonia: (2) Hypoxia: (3) (HFpEF) heart failure with preserved ejection fraction: (4) Prediabetes: Plan Luca Chavez is an 84-year-old male with a past medical history of hypothyroidism, hypertension, hyperlipidemia, BPH, prediabetes who presents to the ER at the recommendation of his PCP for hypoxia and weakness. Initial workup concerning for pneumonia with leukocytosis (13.7), increased sputum production and CTA Chest with no PE, atelectasis vs early PNA and hypoxia requiring supplemental oxygen. Admitted for community acquired pneumonia #community-acquired pneumonia sputum culture resulted haemophilus influenza with beta-lactamase - sensitivities pending Continue ceftriaxone, p.o. azithromycin Supportive care: IS, FV, Mucinex, prn nebs decreased steroids to prednisone 40 mg today, will stop since he has no further wheezing and does not have known COPD/asthma hypoxia improved now on room air. leukocytosis of 14K persists however there is some steroid effect, recheck CBC in 1-2 days. electrolytes are normal and creatinine remains at baseline 0.93 # chronic HFpEF not in exacerbation Continue home bumex and losartan #Prediabetes A1c 6.2, 09/2024. Diet controlled. added as needed Premeal insulin, blood glucose checks acute on suspected chronic urinary retention, BPH with rezum procedure 5 years ago, nocturia, retaining almost 700 mL today and only had small void. Reviewed outpatient urology notes. 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 He does have a wide-based shuffling gait, bradykinesia, masked facies, some rigidity of 4 extremities on exam without cogwheeling. his notices a rest tremor of his left hand at times. Plan to make outpatient neurology referral HLD - continue statin HTN - continue losartan Dvt proh: Lovenox CODE STATUS: Full code PT/OT recommendations reviewedrecommend rehab stay I updated his at the bedside Admission and Anticipated Discharge Date Admission Date: February 08, 2025 Subjective Luca is feeling much better, stronger, less short of breath, he is coughing up a large amount of thick mucus. No chest pain he had urinary retention throughout the day today his says he had prostate surgery in the past and tends to have multiple small voids nocturnally Physical Exam 2 Physical Exam: PHYSICAL EXAMINATION Last 24h vital signs reviewed, see documentation in flowsheet General: sitting up in the chair looks much stronger and more alert HEENT: Normocephalic, atraumatic, pupils round and equal, sclerae anicteric, no conjunctival injection, moist mucus membranes Lungs: Normal respiratory effort. scattered coarse rhonchi in bases, no wheezing Heart: Regular rate and rhythm, no murmurs. No JVD Abdomen: Soft, nontender, nondistended. Bowel sounds present. Extremities: Warm, dry, well-perfused. No extremity edema. Neuro: Alert and oriented x hospital and situation much more verbal today, face symmetric, moves 4 extremities equally and spontaneously Psych: Normal affect and behavior Results & Data Results & Data Vital Signs (Past 12 Hours) Vital Signs Temp Pulse Resp BP Pulse Ox O2 Del Method 02/09/25 15:00 Room Air 02/09/25 14:23 36.3 C L 97 H 18 155/74 H 90 Room Air 02/09/25 08:06 36.6 C 90 18 135/76 90 Room Air 02/09/25 07:45 Room Air Laboratory Results 02/09/25 08:05 02/09/25 08:05 PG Care Time/CCT Total # of Minutes Spent Total Time Spent with Patient: Total time spent is greater than 50% in coordination of care (as documented) at patient's floor/unit and/or counseling patient: Coding Level of Care Code 64372 SUB INP/OBS CARE 3/50MIN Diagnoses Community acquired bacterial pneumonia J15.9 Hypoxia R09.02 (HFpEF) heart failure with preserved ejection fraction I50.33 Heart failure chronicity: acute on chronic Prediabetes R73.03 (3) (HFpEF) heart failure with preserved ejection fraction Heart failure chronicity: acute on chronic Qualified Code(s): I50.33 - Acute on chronic diastolic (congestive) heart failure
[2025-02-09] MEDS: TAMSULOSIN HCL 0.4 MG CAP PO SCH (20:09)
[2025-02-10] MEDS: predniSONE 20 MG TAB PO SCH (08:29)
--- NOTE | 2025-02-10 12:21 | XRay Report ---
XR knee LT 1 or 2V routine CLINICAL HISTORY: fell, injured knee COMPARISON: None FINDINGS: Left knee prosthesis shows no hardware complication. No fracture or dislocation. There are atherosclerotic calcifications. IMPRESSION: No fracture seen. ACT 112: Negative or not required by law. Electronically signed by: Dominick Hill M.D. 02/10/2025 12:19 PM
--- NOTE | 2025-02-10 17:38 | Hospitalist Progress Note ---
Date of Service February 10, 2025 Assessment & Plan (1) Community acquired bacterial pneumonia: (2) Hypoxia: (3) (HFpEF) heart failure with preserved ejection fraction: (4) Prediabetes: Plan Luca Chavez is an 84-year-old male with a past medical history of hypothyroidism, hypertension, hyperlipidemia, BPH, prediabetes who presents to the ER at the recommendation of his PCP for hypoxia and weakness. Initial workup concerning for pneumonia with leukocytosis (13.7), increased sputum production and CTA Chest with no PE, atelectasis vs early PNA and hypoxia requiring supplemental oxygen. Admitted for community acquired pneumonia #community-acquired pneumonia sputum culture resulted haemophilus influenza with beta-lactamase - sensitivities pending, however has clinically resolved on current antibiotics Continue ceftriaxone, p.o. azithromycin no further wheezing stopped prednisone hypoxia resolved # chronic HFpEF not in exacerbation Continue home bumex and losartan # tachycardiapresent this morning, obtained EKG which shows some mild sinus tachycardia. if persisting will hold Bumex for a few doses. has been afebrile #Prediabetes A1c 6.2, 09/2024. Diet controlled. as needed Premeal insulin, blood glucose checks - reviewed at goal today # fall today off of the commode, was mechanical. Obtained left knee x-ray which showed a TKA but was negative for fracture he has only minimal erythema acute on suspected chronic urinary retention, BPH with rezum procedure 5 years ago, nocturia, retaining almost 700 mL today and only had small void. Reviewed outpatient urology notes. 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 He does have a wide-based shuffling gait, bradykinesia, masked facies, some rigidity of 4 extremities on exam without cogwheeling. his notices a rest tremor of his left hand at times. made outpatient neurology referral HLD - continue statin HTN - continue losartan Dvt proh: Lovenox CODE STATUS: Full code PT/OT recommendations reviewedrecommend rehab stay - discussed with care coordination and his today referral made to [place] [facility] I updated his at the bedside daily including 02/10 Admission and Anticipated Discharge Date Admission Date: February 08, 2025 Subjective he fell off the commode today he was trying to get up unassisted and was trying to reach his walker. he landed on his left knee which is sore. did not hit head or neck, no loss of consciousness no further coughing or sputum production today, no dyspnea Physical Exam Physical Exam: PHYSICAL EXAMINATION Last 24h vital signs reviewed, see documentation in flowsheet General: sitting up on commode HEENT: Normocephalic, atraumatic, pupils round and equal, sclerae anicteric, no conjunctival injection, moist mucus membranes Lungs: Normal respiratory effort. clear to auscultation bilaterally Heart: Regular rate and rhythm, no murmurs. No JVD Abdomen: Soft, nontender, nondistended. Bowel sounds present. Extremities: Warm, dry, well-perfused. minimal extremity edema. Neuro: Alert and oriented x hospital and situation though forgetful at times and hard of hearing, face symmetric, moves 4 extremities equally and spontaneously Psych: Normal affect and behavior Results & Data Results & Data Vital Signs (Past 12 Hours) Vital Signs Temp Pulse Resp BP Pulse Ox O2 Del Method 02/10/25 15:12 36.7 C 92 H 16 130/71 96 Room Air 02/10/25 10:19 36.6 C 111 H 20 166/93 H 93 Room Air 02/10/25 08:41 36.5 C 119 H 18 162/98 H 93 Room Air 02/10/25 08:00 Room Air Diagnostic Findings Knee X-Ray 02/10/25 10:52 XR knee LT 1 or 2V routine CLINICAL HISTORY: fell, injured knee COMPARISON: None FINDINGS: Left knee prosthesis shows no hardware complication. No fracture or dislocation. There are atherosclerotic calcifications. IMPRESSION: No fracture seen. ACT 112: Negative or not required by law. Electronically signed by: Dominick Hill M.D. 02/10/2025 12:19 PM ECG Additional Comments: EKG tracing which I personally reviewed shows sinus tachycardia rate of 97, anterior Q waves, T wave inversions in lead III and aVF PG Care Time/CCT Total # of Minutes Spent Total Time Spent with Patient: Total time spent is greater than 50% in coordination of care (as documented) at patient's floor/unit and/or counseling patient: Coding Level of Care Code 67401 SUB INP/OBS CARE 2/35MIN Diagnoses Community acquired bacterial pneumonia J15.9 Hypoxia R09.02 (HFpEF) heart failure with preserved ejection fraction I50.33 Heart failure chronicity: acute on chronic Prediabetes R73.03 (3) (HFpEF) heart failure with preserved ejection fraction Heart failure chronicity: acute on chronic Qualified Code(s): I50.33 - Acute on chronic diastolic (congestive) heart failure
[2025-02-10] MEDS: ACETAMINOPHEN 500 MG TAB PO PRN (20:43)
--- NOTE | 2025-02-10 20:49 | Electrocardiogram Report ---
Test Reason : Blood Pressure : */* mmHG Vent. Rate : 97 BPM Atrial Rate : 97 BPM P-R Int : 218 ms QRS Dur : 106 ms QT Int : 362 ms P-R-T Axes : 48 6 4 degrees QTcB Int : 459 ms Sinus rhythm with 1st degree A-V block Low voltage QRS Cannot rule out Inferior infarct , age undetermined Poor R wave progression, consider anterior NV vs. lead placement vs. LVH Abnormal ECG When compared with ECG of 08-Feb-2025 11:31, Premature ventricular complexes are no longer Present Inverted T waves have replaced nonspecific T wave abnormality in Inferior leads Confirmed by Jonatan Echeverria ([id number]) on 02/10/2025 8:48:48 PM Referred By: Attila Benitez Confirmed By: Jonatan Echeverria
[2025-02-11] MEDS ORDERED: predniSONE 20 MG TAB PO SCH (09:00)
--- NOTE | 2025-02-11 15:28 | Hospitalist Progress Note ---
Date of Service February 11, 2025 Assessment & Plan (1) Community acquired bacterial pneumonia: (2) Hypoxia: (3) (HFpEF) heart failure with preserved ejection fraction: (4) Prediabetes: Plan Luca Chavez is an 84-year-old male with a past medical history of hypothyroidism, hypertension, hyperlipidemia, BPH, prediabetes who presents to the ER at the recommendation of his PCP for hypoxia and weakness. Initial workup concerning for pneumonia with leukocytosis (13.7), increased sputum production and CTA Chest with no PE, atelectasis vs early PNA and hypoxia requiring supplemental oxygen. Admitted for community acquired pneumonia #community-acquired pneumonia sputum culture resulted haemophilus influenza with beta-lactamase - sensitivities pending, however has clinically resolved on current antibiotics ceftriaxone ---> cefuroxime through pm 02/15 completes total 7 days, p.o. azithromycin no further wheezing stopped prednisone hypoxia resolved AM CBC # chronic HFpEF not in exacerbation Continue home bumex and losartan Appears to be dumping more urine once catheter placed AM BMP #Prediabetes A1c 6.2, 09/2024. Diet controlled. as needed Premeal insulin, blood glucose checks - at goal acute on suspected chronic urinary retention, BPH with rezum procedure 5 years ago, nocturia, retaining almost 700 mL and only had small void. Reviewed outpatient urology notes. 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 He does have a wide-based shuffling gait, bradykinesia, masked facies, some rigidity of 4 extremities on exam without cogwheeling. his notices a rest tremor of his left hand at times. made outpatient neurology referral HLD - continue statin HTN - continue losartan Dvt proh: Lovenox CODE STATUS: Full code PT/OT recommendations reviewedrecommend rehab stay - [facility] I updated his at the bedside daily including 02/11 Admission and Anticipated Discharge Date Admission Date: February 08, 2025 Zee Segovia is doing well today, currently sitting in chair No dyspnea and minimal coughing and sputum Leg edema seems to be better Physical Exam 2 Physical Exam: PHYSICAL EXAMINATION Last 24h vital signs reviewed, see documentation in flowsheet General: sitting in chair exam otherwise unchanged 02/11: HEENT: Normocephalic, atraumatic, pupils round and equal, sclerae anicteric, no conjunctival injection, moist mucus membranes Lungs: Normal respiratory effort. clear to auscultation bilaterally Heart: Regular rate and rhythm, no murmurs. No JVD Abdomen: Soft, nontender, nondistended. Bowel sounds present. Extremities: Warm, dry, well-perfused. minimal extremity edema. Neuro: Alert and oriented x hospital and situation though forgetful at times and hard of hearing, face symmetric, moves 4 extremities equally and spontaneously Psych: Normal affect and behavior Results & Data Results & Data Vital Signs (Past 12 Hours) Vital Signs Temp Pulse Resp BP Pulse Ox O2 Del Method 02/11/25 14:59 36.5 C 79 18 116/70 93 Room Air 02/11/25 08:00 Room Air 02/11/25 07:42 36.6 C 88 18 188/82 H 93 Room Air Laboratory Results 02/09/25 08:05 02/09/25 08:05 PG Care Time/CCT Total # of Minutes Spent Total Time Spent with Patient: Total time spent is greater than 50% in coordination of care (as documented) at patient's floor/unit and/or counseling patient: Coding Level of Care Code 92365 SUB INP/OBS CARE 2/35MIN Diagnoses Community acquired bacterial pneumonia J15.9 Hypoxia R09.02 (HFpEF) heart failure with preserved ejection fraction I50.33 Heart failure chronicity: acute on chronic Prediabetes R73.03 (3) (HFpEF) heart failure with preserved ejection fraction Heart failure chronicity: acute on chronic Qualified Code(s): I50.33 - Acute on chronic diastolic (congestive) heart failure
[2025-02-12 07:15] LABS: Hematocrit (blood only) 35.8 % (42.0-52.0); Hemoglobin 12.2 g/dl (14.0-18.0); Mean Corpuscular Hemoglobin 29.4 pg (25.0-34.0); Mean Corpuscular Hgb Conc 34.1 g/dL (32.0-36.0); Mean Corpuscular Volume 86.3 fL (80.0-100.0); Mean Platelet Volume 8.8 fL (9.4-12.4); Platelet Count 259 K/uL (130-400); RDW Standard Deviation 44.1 fL (36.4-46.3); Red Blood Count 4.15 M/uL (4.70-6.10); White Blood Count 11.92 K/ul (4.8-10.8)
[2025-02-12 07:39] LABS: BUN Creatinine Ratio 29.8 (10-20); Calcium 8.3 mg/dl (8.6-10.3); Potassium 3.9 mmol/L (3.5-5.1)
[2025-02-12] MEDS: cefUROXime axetil 500 MG TAB PO SCH (09:02)
--- NOTE | 2025-02-12 18:05 | Hospitalist Progress Note ---
Date of Service February 12, 2025 Assessment & Plan (1) Community acquired bacterial pneumonia: (2) Hypoxia: (3) (HFpEF) heart failure with preserved ejection fraction: (4) Prediabetes: Plan Luca Chavez is an 84-year-old male with a past medical history of hypothyroidism, hypertension, hyperlipidemia, BPH, prediabetes who presents to the ER at the recommendation of his PCP for hypoxia and weakness. Initial workup concerning for pneumonia with leukocytosis (13.7), increased sputum production and CTA Chest with no PE, atelectasis vs early PNA and hypoxia requiring supplemental oxygen. Admitted for community acquired pneumonia #community-acquired pneumonia sputum culture resulted haemophilus influenza with beta-lactamase - sensitivities pending, however has clinically resolved on current antibiotics ceftriaxone ---> cefuroxime through pm 02/15 completes total 7 days, p.o. azithromycin no further wheezing stopped prednisone hypoxia resolved CBC reviewed he continues to have a little bit of a leukocytosis at 12K though he was recently on steroids, hemoglobin unchanged # chronic HFpEF not in exacerbation Continue home bumex and losartan Appears to be dumping more urine once catheter placed reviewed BMP which was unremarkable, creatinine at baseline 0.9 #Prediabetes A1c 6.2, 09/2024. Diet controlled. as needed Premeal insulin, blood glucose checks - at goal acute on suspected chronic urinary retention, BPH with rezum procedure 5 years ago, nocturia, retaining almost 700 mL and only had small void. Reviewed outpatient urology notes. 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 He does have a wide-based shuffling gait, bradykinesia, masked facies, some rigidity of 4 extremities on exam without cogwheeling. his notices a rest tremor of his left hand at times. made outpatient neurology referral HLD - continue statin HTN - continue losartan Dvt proh: Lovenox CODE STATUS: Full code PT/OT recommendations reviewedrecommend rehab stay - referral made to [place] [facility] I updated his at the bedside daily including 02/12 Admission and Anticipated Discharge Date Admission Date: February 08, 2025 Subjective Luca is doing well he has not really coughing anymore no heart having dyspnea, no chest pain, leg edema has improved since admission now minimal Physical Exam 2 Physical Exam: PHYSICAL EXAMINATION Last 24h vital signs reviewed, see documentation in flowsheet General: sitting in chair again per his habit exam otherwise unchanged 02/12: HEENT: Normocephalic, atraumatic, pupils round and equal, sclerae anicteric, no conjunctival injection, moist mucus membranes Lungs: normal work of breathing clear to auscultation bilaterally Heart: Regular rate and rhythm, no murmurs. No JVD Abdomen: Soft, nontender, nondistended. Bowel sounds present. Veronica catheter in clear yellow urine Extremities: Warm, dry, well-perfused. minimal extremity edema. Neuro: Alert and oriented x hospital and situation though forgetful at times and hard of hearing, face symmetric, moves 4 extremities equally and spontaneously Psych: Normal affect and behavior Results & Data Results & Data Vital Signs (Past 12 Hours) Vital Signs Temp Pulse Resp BP Pulse Ox O2 Del Method 02/12/25 15:33 36.3 C L 84 20 133/72 97 Room Air 02/12/25 08:00 Room Air 02/12/25 06:52 36.6 C 80 15 174/77 H 93 Room Air Laboratory Results 02/12/25 06:51 02/12/25 06:51 PG Care Time/CCT Total # of Minutes Spent Total Time Spent with Patient: Total time spent is greater than 50% in coordination of care (as documented) at patient's floor/unit and/or counseling patient: Coding Level of Care Code 20540 SUB INP/OBS CARE 2/35MIN Diagnoses Community acquired bacterial pneumonia J15.9 Hypoxia R09.02 (HFpEF) heart failure with preserved ejection fraction I50.33 Heart failure chronicity: acute on chronic Prediabetes R73.03 (3) (HFpEF) heart failure with preserved ejection fraction Heart failure chronicity: acute on chronic Qualified Code(s): I50.33 - Acute on chronic diastolic (congestive) heart failure
--- NOTE | 2025-02-13 20:52 | Hospitalist Progress Note ---
Date of Service February 13, 2025 Assessment & Plan (1) Community acquired bacterial pneumonia: (2) Hypoxia: (3) (HFpEF) heart failure with preserved ejection fraction: (4) Prediabetes: Plan Luca Chavez is an 84-year-old male with a past medical history of hypothyroidism, hypertension, hyperlipidemia, BPH, prediabetes who presents to the ER at the recommendation of his PCP for hypoxia and weakness. Initial workup concerning for pneumonia with leukocytosis (13.7), increased sputum production and CTA Chest with no PE, atelectasis vs early PNA and hypoxia requiring supplemental oxygen. Admitted for community acquired pneumonia #community-acquired pneumonia sputum culture resulted haemophilus influenza with beta-lactamase - reviewed micro and sensitivities still pending, however has clinically resolved on current antibiotics ceftriaxone ---> cefuroxime through pm 02/15 completes total 7 days, p.o. azithromycin total 5 days he had a few doses of prednisone early in the hospital course for wheezing, which resolved hypoxia resolved # chronic HFpEF not in exacerbation Continue home bumex and losartan - hypertensionblood pressure is in the 140s through 160s over mostly 80s, this is at goal for his advanced age leg edema has improved throughout this admission especially after Veronica catheter placement #Prediabetes A1c 6.2, 09/2024. Diet controlled. as needed Premeal insulin, blood glucose checks - reviewed 02/13 blood glucoses past 48 hours have basically been normal acute on suspected chronic urinary retention, BPH with rezum procedure 5 years ago, nocturia, retaining almost 700 mL and only had small void. Reviewed outpatient urology notes. 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 He does have a wide-based shuffling gait, bradykinesia, masked facies, some rigidity of 4 extremities on exam without cogwheeling. his notices a rest tremor of his left hand at times. made outpatient neurology referral HLD - continue statin HTN - continue losartan Dvt proh: Lovenox CODE STATUS: Full code PT/OT recommendations reviewedrecommend rehab stay - [facility] - awaiting insurance Auth likely can discharge there tomorrow I updated his at the bedside daily including 02/13 Admission and Anticipated Discharge Date Admission Date: February 08, 2025 Zee Segovia continues to do well his cough has basically resolved, he has no dyspnea he is on room air, his lower extremity edema is trace Physical Exam Physical Exam: PHYSICAL EXAMINATION Last 24h vital signs reviewed, see documentation in flowsheet General: sitting in chair again per his habit exam otherwise unchanged 02/13: HEENT: Normocephalic, atraumatic, pupils round and equal, sclerae anicteric, no conjunctival injection, moist mucus membranes Lungs: normal work of breathing clear to auscultation bilaterally, no crackles or wheezing Heart: Regular rate and rhythm, no murmurs. No JVD Abdomen: Soft, nontender, nondistended. Bowel sounds present. Veronica catheter has been removed Extremities: Warm, dry, well-perfused. minimal extremity edema. Neuro: Alert and oriented x hospital and situation though forgetful at times and hard of hearing, face symmetric, moves 4 extremities equally and spontaneously Psych: Normal affect and behavior Results & Data Results & Data Vital Signs (Past 12 Hours) Vital Signs Temp Pulse Pulse Resp BP Pulse Ox O2 Del Method 02/13/25 19:42 36.5 C 89 16 152/73 H 94 Room Air 02/13/25 15:29 36.5 C 100 H 16 153/85 H 94 Room Air 02/13/25 11:20 36.2 C L 83 17 144/84 H 94 Room Air PG Care Time/CCT Total # of Minutes Spent Total Time Spent with Patient: Total time spent is greater than 50% in coordination of care (as documented) at patient's floor/unit and/or counseling patient: Coding Level of Care Code 95310 SUB INP/OBS CARE 2/35MIN Diagnoses Community acquired bacterial pneumonia J15.9 Hypoxia R09.02 (HFpEF) heart failure with preserved ejection fraction I50.33 Heart failure chronicity: acute on chronic Prediabetes R73.03 (3) (HFpEF) heart failure with preserved ejection fraction Heart failure chronicity: acute on chronic Qualified Code(s): I50.33 - Acute on chronic diastolic (congestive) heart failure
[2025-02-14 07:42] VITALS: BP 176/92; PULSE 79; RESP 17; TEMP 98.1; O2SAT 91
--- NOTE | 2025-02-14 18:48 | Discharge Summary ---
Discharge Summary Date of Service February 14, 2025 Principal Dx & Hospital Course #1 = Principal Diagnosis (1) Community acquired bacterial pneumonia: (2) Hypoxia: (3) (HFpEF) heart failure with preserved ejection fraction: (4) Prediabetes: Plan Luca Chavez is an 84-year-old male with a past medical history of hypothyroidism, hypertension, hyperlipidemia, BPH, prediabetes who presents to the ER at the recommendation of his PCP for hypoxia and weakness. Initial workup concerning for pneumonia with leukocytosis (13.7), increased sputum production and CTA Chest with no PE, atelectasis vs early PNA and hypoxia requiring suppl emental oxygen. Admitted for community acquired pneumonia #community-acquired pneumonia due to haemophilus influenzae sputum culture resulted haemophilus influenza with beta-lactamase - reviewed micro and sensitivities still pending, however has clinically resolved on current antibiotics ceftriaxone ---> cefuroxime through pm 02/15 completes total 7 days, p.o. azithromycin total 5 days he had a few doses of prednisone early in the hospital course for wheezing, which resolved hypoxia resolved # chronic HFpEF not in exacerbation Continue home bumex and losartan - hypertensionblood pressure is in the 140s through 160s over mostly 80s, this is at goal for his advanced age leg edema has improved throughout this admission especially after Mar catheter placement #Prediabetes A1c 6.2, 09/2024. Diet controlled. did not need any insulin this admission and basically all his glucose checks were around normal acute on suspected chronic urinary retention, BPH with rezum procedure 5 years ago, nocturia, found to be retaining almost 700 mL and only had small void. Reviewed outpatient urology notes. -started tamsulosin - Mar catheter removed 02/12 and voiding spontaneously - monitor PVR and straight cath as needed urinary retention greater than 400 mL or symptomatic - he has an appointment with his urologist this upcoming month parkinsonismthis has been noted for several months by his and therapists. He does have a wide-based shuffling gait, bradykinesia, masked facies, some rigidity of 4 extremities on exam without cogwheeling. his notices a rest tremor of his left hand at times. made outpatient neurology referral HLD - continue statin HTN - continue losartan CODE STATUS: Full code PT/OT recommend rehab, discharged to [facility] I updated his at the bedside daily including 02/14 Notes For Next Care Provider finish antibiotics for pneumonia only few doses left monitor weight and edema, adjust diuretics accordingly monitor for urinary retention and straight cath as needed urology follow-up already scheduled mid February outpatient neurology referral made for possible parkinsonism Medication Changes From Visit antibiotics added, Flomax started Admission HPI Per Admitting Provider Luca Chavez is an 84-year-old male with a past medical history of hypothyroidism, hypertension, hyperlipidemia, BPH, prediabetes who presents to the ER at the recommendation of his PCP. Reports productive cough x 5 days with increased sputum production. he had a near fall this morning, he reports that he was post to sit on the bed and he missed it. Took two people to get him off the floor. Normally he uses a walker, but has increasing weakness. Denies chest pain. Has maintained his appetite, normal bowel habits. Denies recent changes in medications. no etoh, no smoking Desires to be a full code ER course: azithromycin 500 mg p.o. x 1 Ceftriaxone 2 g IV x 1 Discharge Exam PHYSICAL EXAMINATION Last 24h vital signs reviewed, see documentation in flowsheet General: awake alert sitting up in the chair looks well exam otherwise unchanged 02/14: HEENT: Normocephalic, atraumatic, pupils round and equal, sclerae anicteric, no conjunctival injection, moist mucus membranes Lungs: normal work of breathing clear to auscultation bilaterally, no crackles or wheezing Heart: Regular rate and rhythm, no murmurs. No JVD Abdomen: Soft, nontender, nondistended. Bowel sounds present. Mar catheter has been removed Extremities: Warm, dry, well-perfused. minimal extremity edema. Neuro: Alert and oriented x hospital and situation though forgetful at times and hard of hearing, face symmetric, moves 4 extremities equally and spontaneously Psych: Normal affect and behavior Discharge Plan Discharge Items Patient Disposition: Transfer [facility] Fac Reason For Visit: PNA Discharge Diagnosis: Haemophilus influenzae pneumonia, acute on chronic urinary retention from BPH Activity: Per Instructions section Weightbearing: Full weightbearing Non-emergency contact: Primary Care Provider and Neurologist Call non-emergency contact if: you have any medication questions, your symptoms worsen and you have a fever Follow-up/Referrals: Attila Benitez, [Primary Care Provider] - Diet: Carb Consistent or DM2 Addtl Attending Provider Instructions: Pneumonia caused by Haemophilus influenzae - resolved - po ceftin through 02/15 pm dose. completed course of azithromycin Chronic heart failure - not in exacerbation, remained stable Acute on chronic urinary retention from BPH - started flomax 02/11, mar removed, monitor PVR/bladder scan, I/O cath PRN PVR > 400. Has urology appt in mid February PT and OT evaluate and treat Possible parkinsonism - outpatient neurology referral made Pre-diabetes - last A1c 6.2. All blood glucose checks in hospital have been at goal, no insulins needed. Continue diet control and doesn't need daily glucose checks Pending Studies at Discharge: No Stand-Alone Forms: My [facility] Skilled Items Patient informed of condition?: Yes DNR: No Discharge Level of Care: Skilled Communicable Disease: No Discharge Prognosis: Improving Lines: None Urinary Catheter: No Medications and DC Order Prescriptions: New cefuroxime axetil 500 mg Tablet 500 mg PO BID Qty: 0 0RF Rx Instructions: last dose is 02/15 pm polyethylene glycol 3350 [Miralax] 17 gram Powder In Packet 17 g PO DAILY PRN (Reason: constipation) Qty: 0 0RF tamsulosin 0.4 mg Capsule 0.4 mg PO HS Qty: 0 0RF Continued (DME) Wheelchair (Manual) Device See Rx Instructions .ROUTE .MEDSUPPLY Qty: 1 0RF Rx Instructions: TRANSPORT CHAIR simvastatin 20 mg tablet 20 mg PO QPM Qty: 90 3RF bumetanide 1 mg tablet 1 mg PO QAM Qty: 90 3RF melatonin 5 mg Tablet 5 mg PO HS Cbd Gummy 15 mg PO QPM losartan 100 mg tablet 100 mg PO QPM acetaminophen 500 mg Tablet 1,000 mg PO HS gabapentin 100 mg capsule 300 mg PO QAM Discharge Orders: Discharge Order (Routine); Ordered 02/14/25 Ordered By: Ernestina Boyd Admission Data Admit Date/Time: 02/08/25 14:14 Attending Provider: Ernestina Boyd Admit Provider: Ernestina Boyd Primary Care Provider: Attila Benitez Other Providers: Ernestina Boyd; [place] Other Interventions: Discharge Summary Assessment (RN) Last Done: 02/14/25 12:03 Hospital Stay Data Consultations 02/08/25 13:25 ED Decision to Admit Stat Diagnostic Imagining Performed 02/08/25 13:21 CT for pulmonary embolism PE [CT angio chest PE protocol] Stat Pending Results Patient Have Any Pending Studies at Discharge: No Discharge Instructions Given to Patient (Per Discharging Provider) Pneumonia caused by Haemophilus influenzae - resolved - po ceftin through 02/15 pm dose. completed course of azithromycin Chronic heart failure - not in exacerbation, remained stable Acute on chronic urinary retention from BPH - started flomax 02/11, mar removed, monitor PVR/bladder scan, I/O cath PRN PVR > 400. Has urology appt in mid February PT and OT evaluate and treat Possible parkinsonism - outpatient neurology referral made Pre-diabetes - last A1c 6.2. All blood glucose checks in hospital have been at goal, no insulins needed. Continue diet control and doesn't need daily glucose checks Total Time Total Time Spent Total Time Spent (In Minutes): I personally spent: 40 minutes today on clinical care activities including: reviewing chart notes and vital signs discussion with director of patient care examining and counseling the patient counseling the patient's family writing orders writing prescriptions, discharge instructions documentation Coding Level of Care Code 01496 INP/OBS DISCH >30 MIN Diagnoses Community acquired bacterial pneumonia J15.9 Hypoxia R09.02 (HFpEF) heart failure with preserved ejection fraction I50.33 Heart failure chronicity: acute on chronic Prediabetes R73.03
== END 2025-02-14 13:23 | DRG 194 ==
LOC: ED 11:05 → 3N 14:14